=== PATIENT | male | born 1945 | race Caucasian/White ===

== ENCOUNTER → 2017-10-21 09:58 | Outpatient (CLI) | payer MEDICARE, SELFPAY | PROVIDERS: PCP Family Medicine; Visit Provider Family Medicine | DX: R42 Dizziness and giddiness (principal) | CPT/HCPCS: 93225; 93226 ==

== ENCOUNTER → 2018-11-12 11:32 | Outpatient (CLI) | payer MEDICARE, SELFPAY ==
--- NOTE | 2018-11-12 11:46 | XR_ITS ---
XR KUB HISTORY: ITS.REASON: HEMATURIA ORDERING PHYSICIAN: Toyin Zamarripa MD PATIENT AGE: 73 years COMPARISON: None FINDINGS: The bowel gas pattern is unremarkable. No obvious obstruction.. There is a small calcific density in the left upper quadrant and could represent a small renal stone versus artifact measuring 5 mm. Right-sided pelvic calcification is present consistent with a phlebolith. There is a 2 mm density overlying the lower pole the right kidney could be due to small stone. IMPRESSION: Possible bilateral nephrolithiasis.
--- NOTE | 2018-11-12 11:47 | US_ITS ---
US Kidney CLINICAL INDICATION: ITS.REASON: HEMATURIA ORDERING PHYSICIAN: Toyin Zamarripa MD PATIENT AGE: 73 years Comparison: None FINDINGS: The right kidney measures 11 x 6 x 6 cm. No cortical thinning, scarring, or hydronephrosis. The left kidney is 12 x 5 x 5 cm. No hydronephrosis. There is a 7.5 cm cyst along the lower pole on the left. No other significant anomalies evident. IMPRESSION: 7 cm left renal cyst otherwise negative bilateral renal ultrasound
== END ==
PROVIDERS: PCP Family Medicine; Visit Provider Family Medicine
DX: R31.29 Other microscopic hematuria (principal)
CPT/HCPCS: 74018; 76770

== ENCOUNTER → 2020-05-03 12:33 | Outpatient (CLI) | payer MEDICARE, SELFPAY ==
--- NOTE | 2020-05-03 12:37 | XR_ITS ---
PROCEDURE: XR FOOT WT BEARING LT 3V CLINICAL INDICATION: foot pain COMPARISON: No exams were available for comparison FINDINGS: No fracture or dislocation. No lytic or blastic change. There is normal mineralization. The joint spaces are well-preserved. No significant degenerative/arthritic changes. No erosive changes evident. Other findings:Small Achilles enthesophyte IMPRESSION: No acute findings. Dictated by: Wally Spence MD 05/03/2020 17:09 Wally Spence MD in [place] 05/03/2020 17:09
--- NOTE | 2020-05-03 12:37 | XR_ITS ---
PROCEDURE: XR FOOT WT BEARING RT 3V CLINICAL INDICATION: pain COMPARISON: No exams were available for comparison FINDINGS: No fracture or dislocation. No lytic or blastic change. There is normal mineralization. Mild osteoarthritic changes 1st MTP joint. Borderline pes planus. Small enthesophyte at the Achilles insertion. Other findings:None. 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
== END ==
PROVIDERS: PCP Family Medicine; Visit Provider Nurse Practitioner
DX: M79.672 Pain in left foot (principal); M79.671 Pain in right foot
CPT/HCPCS: 73630

== ENCOUNTER → 2020-07-29 16:59 | Outpatient (CLI) | payer MEDICARE, SELFPAY ==
--- NOTE | 2020-07-29 17:39 | ECG_ITS ---
APPROVED REPORT Exam: Resting ECG HR:57 bpm ECG Measurements Heart Rate 57 AXES WI 126 P 33 QRSd 84 QRS 7 QT 406 T -9 QTc 395 Conclusion Sinus bradycardia Isolated q wave in III Abnormal ECG Electronically signed by : Yobany Alejandre, 07/30/2020 08:50:35
[2020-07-29 18:00] LABS: Creatine Kinase 49 U/L (55-170)
[2020-07-29 18:12] LABS: CKMB Relative Index 0.4 U/L (0-4.0); Creatine Kinase MB 0.2 ng/ml (0.0-2.03)
[2020-07-29 18:13] LABS: Troponin I < 0.01 ng/ml (0.00-0.034)
== END ==
LOC: COVID.OUT 17:02 → OUTP 17:11 → LAB 17:14
PROVIDERS: PCP Family Medicine; Visit Provider Family Medicine
DX: R10.13 Epigastric pain (principal)
CPT/HCPCS: 36415; 82550; 82553; 84484; 93005

== ENCOUNTER → 2022-12-10 15:46 | Outpatient (CLI) | payer MEDICARE, SELFPAY ==
--- NOTE | 2022-12-10 15:52 | XR_ITS ---
FINAL REPORT CLINICAL HISTORY: BLOOD CHEMISTRY ABNORMALITY FINDINGS: Single lateral view of the skull was obtained. There is no evidence of calvarial lucency. IMPRESSION: No acute abnormality identified. Reviewed, Interpreted and Dictated by Braden Ness MD Transcribed by Alba Kerr Authenticated and [facility]
== END ==
LOC: LAB 15:47 → RAD 15:49
PROVIDERS: PCP Family Medicine; Visit Provider Family Medicine
DX: R79.9 Abnormal finding of blood chemistry, unspecified (principal)
CPT/HCPCS: 70250

== ENCOUNTER → 2023-06-14 10:59 | Outpatient (CLI) | payer MEDICARE, SELFPAY ==
--- NOTE | 2023-06-14 11:22 | CT_ITS ---
FINAL REPORT TECHNIQUE: The patient was injected with IV contrast. Axial images were obtained through the chest in a PE protocol. 3-D reconstruction images were also performed. Individualized dose reduction techniques using automated exposure control or adjustment of the MA and/or KV according to patient's size were employed. CLINICAL HISTORY: DYSPNEA,ABN ECG,TACHYCARDIA FINDINGS: Mediastinal vasculature is adequately opacified. No pulmonary artery filling defects are identified to suggest PE. There is no aortic dissection. There is no axillary adenopathy. There is small mediastinal lymph nodes. The heart size is normal. There is no pericardial or pleural effusion. There are extensive changes of centrilobular emphysema. There are patchy airspace infiltrate in the posterior upper lobes bilaterally. These are well-seen on the left on image 39 of series 3. A noncalcified nodule in the left base periphery measures 6 mm. This is well-seen on image 80 of series 3. Limited images of the upper abdomen demonstrate a small sliding-type hiatal hernia. There is a large left renal cyst measuring 8.2 x 7.2 cm. IMPRESSION: No pulmonary embolus or dissection. Patchy airspace opacity in the posterior upper lobes bilaterally may be due to acute pneumonitis. Small 6 mm peripheral left base nodule. Follow-up CT is recommended in 6 to 12 months per Fleischner Society criteria. Reviewed, Interpreted and Dictated by Braden Ness MD Transcribed by Nikki Barragan Authenticated and [facility]
[2023-06-14 11:49] LABS: Basophils # 0.1 K/mm3 (0-0.2); Basophils % 0.8 % (0.1-2.0); Eosinophils # 0.5 K/mm3 (0.0-0.4); Eosinophils % 5.7 % (0.1-12.0); Hematocrit 41.2 % (42.0-52.0); Hemoglobin 13.9 g/dL (14.1-18.0); Lymphocytes # 2.6 K/mm3 (0.7-4.5); Lymphocytes % 30.7 % (10-50); Mean Corpuscular HGB Conc 33.7 g/dL (31.8-35.4); Mean Corpuscular Hemoglobin 33.3 pg (27.0-31.2); Mean Corpuscular Volume 98.7 fl (80-94); Mean Platelet Volume 7.7 fl (7.4-10.4); Monocytes # 1.2 K/mm3 (0.1-1.0); Monocytes % 14.6 % (1.7-9.3); Neutrophils # 4.1 K/mm3 (1.8-7.8); Neutrophils % 48.3 % (37.0-80.0); Platelet Count 213 K/mm3 (142-424); Red Blood Count 4.17 M/mm3 (4.60-6.20); Red Cell Distribution Width 13.7 % (11.5-17.5); White Blood Count 8.4 K/mm3 (4.8-10.8)
[2023-06-14 11:52] LABS: Chloride 104 mmol/L (98-107); Potassium 4.9 mmoL/L (3.5-5.1); Sodium 139 mmol/L (136-145)
[2023-06-14 11:55] LABS: Alanine Aminotransferase 29 U/L (12-78); Albumin Level 4.1 g/dl (3.5-5.0); Alkaline Phosphatase 132 U/L (38-126); Anion Gap 16.9 mEq/L (5-15); Aspartate Amino Transferase 35 U/L (17-59); Bilirubin,Total 0.6 mg/dl (0.2-1.3); Blood Urea Nitrogen 17 mg/dl (9-20); Carbon Dioxide 23 mmol/L (22.0-30.0); Estimated Glomerular Filt Rate 54 ml/min (>60); GFR (African American) 65 ML/MIN (>60); Globulin 4.2 g/dL (1.3-3.2); Total Protein,Serum 8.3 g/dl (6.3-8.2)
[2023-06-14 11:56] LABS: Glucose 120 mg/dl (74-100)
[2023-06-14 12:05] LABS: NT Pro Brain Natriuretic Pep. 150 pg/mL (0-450)
== END ==
PROVIDERS: PCP Family Medicine; Visit Provider Internal Medicine Adolescent Medicine
DX: R06.09 Other forms of dyspnea (principal); R00.0 Tachycardia, unspecified; R94.31 Abnormal electrocardiogram [ECG] [EKG]
CPT/HCPCS: 36415; 71275; 80053; 83880; 85025; Q9967

== ENCOUNTER → 2023-06-18 13:53 | Outpatient (CLI) | payer MEDICARE, SELFPAY ==
--- NOTE | 2023-06-18 | CA_ITS ---
APPROVED REPORT EXAM: Comprehensive 2D, Doppler, and color-flow Echocardiogram Kiss Setter Hand: Marta Mabry CRT Ht: 5 ft 6 in Wt: 160lbs BSA: 1.82 BP: 127/65 mmHg Indications: Shortness of Breath 2D Dimensions LA Volume 41.30 mL M-Mode Dimensions RVDd 2.91 cm (0.9-2.6) LA Diam 4.17 cm (1.9-4.0) LVDd 4.38 cm (3.5-5.7) LVDs 2.01 cm (3.5-5.7) IVSd 1.30 cm (0.6-1.1) PWd 1.04 cm (0.6-1.1) EF (Teich) 85.10% FS 54.10% EDV (Teich) 86.80 mL TAPSE 2.90 (<1.7) ESV (Teich) 12.90 mL LV Diastology E Decel Time 347 (160-240 msec) E/A Ratio 0.46 MED A' 12.90 cm/s LAT A' 14.20 cm/s Aortic Valve AO Peak GR. 8.60 mmHg Mitral Valve MV A Velocity 101.0 (40-130 cm/s) E/A Ratio 0.46 Pulmonary Valve PV Peak Velocity 187.0 (50-150 cm/s) Tricuspid Valve TR P. Velocity 221.00 cm/s RAP Estimate 10.00 mmHg RVSP 29.60 mmHg Left Ventricle The left ventricle is normal size. The left ventricular systolic function is normal. The left ventricular ejection fraction is within the normal range. There is increased LV wall thickness. There is normal LV segmental wall motion. Transmitral Doppler flow pattern suggests impaired LV relaxation. LVEF is 65%. Right Ventricle The right ventricle is mildly dilated. The right ventricular systolic function is normal. Atria The left atrium is severely dilated. The right atrium size is normal. There is no Doppler evidence of interatrial shunt. Aortic Valve The aortic valve is mildly thickened. There is no aortic valvular stenosis. Trace aortic regurgitation. Mitral Valve Mild mitral annular calcification. The mitral valve leaflets are mildly thickened. No evidence of mitral valve stenosis. Mild mitral regurgitation. Tricuspid Valve The tricuspid valve leaflets are thin and pliable. Trace tricuspid regurgitation. There is insufficient TR jet to estimate RVSP. Pulmonic Valve The pulmonary valve is normal in structure. Mild pulmonic regurgitation. Great Vessels The aortic root is normal in size. The ascending aorta is normal in size. The IVC is not well-visualized. Pericardium There is no pericardial effusion. Other Information Study Quality: Fair Conclusion Normal biventricular systolic function. Severe LA dilation. Mild RV dilation. Mild MR. Mild MS. Electronically signed by : May Eric MD 06/18/2023 23:34:16
== END ==
LOC: RT 13:53
PROVIDERS: PCP Family Medicine; Visit Provider Internal Medicine Adolescent Medicine
DX: R06.02 Shortness of breath (principal)
CPT/HCPCS: 93306

== ENCOUNTER 2023-10-17 12:34 | Outpatient (CLI) | payer MEDICARE, SELFPAY ==
[2023-10-17 16:31] LABS: Basophils # 0.1 K/mm3 (0-0.2); Eosinophils # 0.3 K/mm3 (0.0-0.4); Eosinophils % 3.4 % (0.1-12.0); Hematocrit 43.1 % (42.0-52.0); Hemoglobin 13.9 g/dL (14.1-18.0); Lymphocytes # 2.3 K/mm3 (0.7-4.5); Lymphocytes % 29.3 % (10-50); Mean Corpuscular HGB Conc 32.3 g/dL (31.8-35.4); Mean Corpuscular Hemoglobin 32.6 pg (27.0-31.2); Mean Corpuscular Volume 100.9 fl (80-94); Mean Platelet Volume 7.6 fl (7.4-10.4); Monocytes # 0.7 K/mm3 (0.1-1.0); Monocytes % 8.7 % (1.7-9.3); Neutrophils # 4.5 K/mm3 (1.8-7.8); Neutrophils % 57.6 % (37.0-80.0); Platelet Count 214 K/mm3 (142-424); Red Blood Count 4.27 M/mm3 (4.60-6.20); Red Cell Distribution Width 14.3 % (11.5-17.5); White Blood Count 7.8 K/mm3 (4.8-10.8)
[2023-10-17 17:00] LABS: Alanine Aminotransferase 26 U/L (12-78); Albumin Level 4.1 g/dl (3.5-5.0); Albumin/Globulin Ratio 0.9 (1.1-1.8); Alkaline Phosphatase 144 U/L (38-126); Anion Gap 13.1 mEq/L (5-15); Aspartate Amino Transferase 28 U/L (17-59); Bilirubin,Total 0.7 mg/dl (0.2-1.3); Blood Urea Nitrogen 18 mg/dl (9-20); Calcium 9.5 mg/dl (8.4-10.2); Carbon Dioxide 25 mmol/L (22.0-30.0); Chloride 106 mmol/L (98-107); Estimated Glomerular Filt Rate 65 ml/min (>60); GFR (African American) 79 ML/MIN (>60); Globulin 4.4 g/dL (1.3-3.2); Glucose 167 mg/dl (74-100); Lactate Dehydrogenase 206 U/L (313-618); Potassium 4.1 mmoL/L (3.5-5.1); Sodium 140 mmol/L (136-145); Total Protein,Serum 8.5 g/dl (6.3-8.2); Uric Acid 5.6 mg/dl (3.5-8.5)
[2023-10-17 17:05] LABS: C-Reactive Protein 23.6 mg/L (0-4)
[2023-10-17 17:28] LABS: Erythrocyte Sedimentation Rate 63 mm/hr (0-20)
[2023-10-19 10:03] LABS: RA Latex Turbid. <10.0 IU/mL (<14.0)
[2023-10-21 11:10] LABS: Sjogren's Anti-SS-A <0.2 AI (0.0-0.9); Sjogren's Anti-SS-B <0.2 AI (0.0-0.9)
[2023-10-21 15:09] LABS: Cytoplasmic (C-ANCA) <1:20 titer (Neg:<1:20); Perinuclear (P-ANCA) <1:20 titer (Neg:<1:20)
[2023-10-22 14:11] LABS: Strongyloides IgG Antibody Positive (Negative)
[2023-10-22 17:18] LABS: Aspergillus flavus Negative (Neg:<1:1); Aspergillus fumigatus Negative (Neg:<1:1); Aspergillus niger Negative (Neg:<1:1); Blastomyces Antibody Negative (Neg:<1:1); Histoplasma Antibody Quant Negative (Neg:<1:1)
== END 2023-10-17 23:59 | disposition home or self-care (01) ==
PROVIDERS: PCP Family Medicine; Visit Provider Internal Medicine Pulmonary Disease
DX: R06.09 Other forms of dyspnea (principal); J84.9 Interstitial pulmonary disease, unspecified; J90 Pleural effusion, not elsewhere classified; J45.909 Unspecified asthma, uncomplicated; D72.10 Eosinophilia, unspecified; R91.1 Solitary pulmonary nodule; J84.10 Pulmonary fibrosis, unspecified
CPT/HCPCS: 36415; 80053; 83615; 84550; 85025; 85651; 86038; 86140; 86225; 86235; 86256; 86331; 86431; 86602; 86606; 86609; 86612; 86682; 86698; 94060; 94618; 94726; 94729

== ENCOUNTER 2023-10-31 10:12 | Outpatient (CLI) | payer MEDICARE, SELFPAY ==
--- NOTE | 2023-10-31 10:13 | CT_ITS ---
FINAL REPORT TECHNIQUE: Axial CT images were performed from the lung apices through the upper abdomen. Coronal and axial reformats were submitted. This study was performed with techniques to keep radiation doses as low as reasonably achievable (ALARA). Individualized dose reduction techniques using automated exposure control or adjustment of mA and/or kV according to the patient's size were employed. This examination was performed as a high resolution CT of the chest, with inspiratory and expiratory supine views, and inspiratory prone views. CLINICAL HISTORY: INTERSTITIAL LUNG DISEASE HIGH RESOLUTION CHEST X3 (INSPIRATION AND EXPIRATION SUPINE) (INSPIRATION PRONE) COMPARISON: None FINDINGS: Moderate coronary artery calcifications are present. There is no axillary adenopathy. There is no hilar or mediastinal mass or adenopathy. Heart size is normal. There is no pericardial or pleural effusion. A small hiatal hernia is present, as well as a large left renal cyst. There is moderate predominantly peripheral interstitial fibrosis, with peripheral honeycombing present as well. There is no evidence of air trapping with expiratory films. No bronchiectasis is identified. IMPRESSION: Examination reveals changes of moderate peripheral interstitial fibrosis. This may represent UIP. Moderate coronary artery calcifications. Reviewed, Interpreted and Dictated by Brian Kinney III, MD Transcribed by Angelica Osman Authenticated and [facility]
== END 2023-10-31 23:59 | disposition home or self-care (01) ==
LOC: RAD 10:13
PROVIDERS: PCP Family Medicine; Visit Provider Internal Medicine Pulmonary Disease
DX: J84.9 Interstitial pulmonary disease, unspecified (principal); J84.10 Pulmonary fibrosis, unspecified; R94.2 Abnormal results of pulmonary function studies; R06.09 Other forms of dyspnea; Z87.891 Personal history of nicotine dependence
CPT/HCPCS: 71250

== ENCOUNTER 2023-11-21 11:09 | Outpatient (CLI) | payer MEDICARE, SELFPAY ==
[2023-11-21 13:34] LABS: C-Reactive Protein 19.5 mg/L (0-4)
[2023-11-22 13:55] LABS: Anti-DNA (DS) Ab Qn <1 IU/mL (0-9); RNP Antibodies <0.2 AI (0.0-0.9)
== END 2023-11-21 23:59 | disposition home or self-care (01) ==
LOC: LAB 11:10
PROVIDERS: PCP Family Medicine; Visit Provider Internal Medicine Pulmonary Disease
DX: J84.9 Interstitial pulmonary disease, unspecified (principal); J84.10 Pulmonary fibrosis, unspecified
CPT/HCPCS: 36415; 86140; 86225; 86235

== ENCOUNTER 2024-01-31 09:44 | Outpatient (CLI) | payer MEDICARE, SELFPAY ==
[2024-01-31] MEDS: ALBUTEROL 0.083% 2.5 MG/3 ML NEB IH (10:01)
--- NOTE | 2024-01-31 10:01 | PC.NURSE ---
Pre and Post Spirometry completed without incident. Albuterol 0.083% given via HHN, per written protocol, Pt tolerated tx well. 6 Minute Walk Test completed.
== END 2024-01-31 23:59 | disposition home or self-care (01) ==
LOC: RT 09:44
PROVIDERS: PCP Family Medicine; Visit Provider Internal Medicine Pulmonary Disease
DX: R06.09 Other forms of dyspnea; J84.9 Interstitial pulmonary disease, unspecified; J84.10 Pulmonary fibrosis, unspecified; Z87.891 Personal history of nicotine dependence
CPT/HCPCS: 94060; 94618; J7613

== ENCOUNTER 2024-05-14 09:44 | Outpatient (CLI) | payer MEDICARE, SELFPAY ==
[2024-05-14] MEDS: ALBUTEROL 0.083% 2.5 MG/3 ML NEB IH (10:53)
--- NOTE | 2024-05-14 10:53 | PC.NURSE ---
Pre and Post Spirometry completed without incident. Albuterol 0.083% given via HHN, per written protocol, Pt tolerated tx well.
== END 2024-05-14 23:59 | disposition home or self-care (01) ==
PROVIDERS: PCP Family Medicine; Visit Provider Internal Medicine Pulmonary Disease
DX: J44.9 Chronic obstructive pulmonary disease, unspecified (principal)
CPT/HCPCS: 94060; J7613

== ENCOUNTER 2024-06-01 07:34 | Outpatient (CLI) | payer MEDICARE, SELFPAY ==
[2024-06-01] VITALS (7 sets, daily range): BP systolic 100–159; BP diastolic 50–90; PULSE 52–61; RESP 16–18; TEMP 36.1; O2SAT 96–98; BMI 30.9
--- NOTE | 2024-06-01 07:43 | CA_ITS ---
APPROVED REPORT EXAM: Comprehensive 2D, Doppler, and color-flow Echocardiogram Branch Service Associate: Marta Mabry CRT Ht: 5 ft 6 in Wt: 173lbs BSA: 1.88 BP: 149/68 mmHg Indications: Abnormal ECG, Shortness of Breath, Dyspnea, CAD, bradycardia 2D Dimensions LA Volume 62.40 mL LA Volume Index 32.30 mL/m2 (M/F) 16-34 M-Mode Dimensions RVDd 2.65 cm (0.9-2.6) LA Diam 4.09 cm (1.9-4.0) LVDd 4.94 cm (3.5-5.7) LVDs 3.61 cm (3.5-5.7) IVSd 1.50 cm (0.6-1.1) PWd 0.89 cm (0.6-1.1) EF (Teich) 52.30% FS 26.90% EDV (Teich) 115.00 mL TAPSE 2.51 (<1.7) ESV (Teich) 54.80 mL LV Diastology E Decel Time 77 (160-240 msec) E/A Ratio 1.81 MED A' 14.70 cm/s LAT A' 13.70 cm/s Aortic Valve AO Peak GR. 8.00 mmHg Mitral Valve MV E Max Jeffery. 80.0 (40-130 cm/s) MV A Velocity 44.0 (40-130 cm/s) E/A Ratio 1.81 MV PHT 22.0 ms Pulmonary Valve PV Peak Velocity 193.0 (50-150 cm/s) Tricuspid Valve TR P. Velocity 391.00 cm/s RAP Estimate 10.00 mmHg RVSP 71.20 mmHg Left Ventricle The left ventricle is normal size. The left ventricular systolic function is normal. The left ventricular ejection fraction is within the normal range. There is increased LV wall thickness. There is normal LV segmental wall motion. Diastolic function is indeterminate. LVEF is 55%. Right Ventricle Right ventricle is mildly dilated. The right ventricular systolic function is normal. Atria Left atrium is severely dilated. Right atrium is severely dilated. There is no Doppler evidence of interatrial shunt. Aortic Valve The aortic valve is mildly thickened. There is no aortic valvular stenosis. Trace aortic regurgitation. Mitral Valve The mitral valve is mildly thickened. No evidence of mitral valve stenosis. Mild mitral regurgitation. Tricuspid Valve Tricuspid valve is grossly normal in structure and function. Mild tricuspid regurgitation. RVSP is 35-40 mmHg. Pulmonic Valve The pulmonary valve is normal in structure. Trace pulmonic regurgitation. Great Vessels The aortic root is normal in size. The ascending aorta is normal in size. IVC is normal in size and collapses >50% with inspiration. Pericardium There is no pericardial effusion. Other Information Study Quality: Fair Conclusion Normal biventricular systolic function. Mild RV dilation. Severe biatrial dilation. Mild MR, mild TR. RVSP is 35-40 mmHg. Electronically signed by : May Eric MD 06/07/2024 16:45:50
--- NOTE | 2024-06-01 08:17 | CT_ITS ---
APPROVED REPORT Spring Fitter: CLINICAL INDICATION Chest Pain TECHNIQUE Image Acquisition: A 128 slice MDCT scanner (YupiCalla View) was used for data acquisition. A noncontrast coronary calcium scan was performed. A CT attenuation threshold of 130 Hounsfield units (HU) was used for the detection of calcium in contiguous voxels of 1 sq mm in area to be counted as individual lesions. Bolus tracking in the ascending aorta with a threshold of 180 HU was performed. Immediately afterwards, ECG synchronized cardiac CT was then performed from the cardiac base to apex using retrospective gating with ECG tube current modulation. A total of 85 mL of Isovue 370 mg/mL contrast medium was administered at 5 mL/sec followed by a saline flush using a biphasic injection protocol. A tube voltage of 120 KVp was used. The patient received the following medications prior to the cardiac CT. 0.8 mg of sublingual nitroglycerin The average heart rate at the time of acquisition was 60 bpm and regular. Image Reconstruction Transaxial images were reconstructed at 0.67 mm slide thickness. Data was reviewed interactively on an advanced workstation capable of 2 and 3-dimensional displays in all conventional reconstruction formats, including multiplanar reformations, maximum intensity projections, curved multiplanar reformations, and volume rendered reconstructions. When applicable, selected routine images describing the relevant coronary anatomy and pathology were saved and sent to PACS. Complications None Technical Quality Overall image quality was good. Coronary artery opacification was adequate. Total DLP (Dose-Length Product) is 1830.1 mGy-cm. The reported value represents the total of one or more individual components during the CT acquisition of this date and at this time, and as such, the same value may appear in more than one CT report depending on the interpreting/reporting physicians. COMPARISON None FINDINGS CT Coronary Calcium Scoring LMA (Left Main Artery) = 66 LAD (Left Anterior Descending) = 559 LCX (Left Coronary Circumflex) = 0 RCA (Right Coronary Artery) = 0 Total Calcium Score = 625 using the AJ-130 method. The observed calcium score of 625 is at 67th percentile for subjects of the same age, sex, and race/ethnicity. The interpretation of the calcium heart score is based on the following continuum*: 0 = no calcified plaque detected (risk of coronary artery disease is very low ??? less than 5%) 1-10 = calcium detected in extremely minimal levels (risk of coronary diseases is still low ??? less than 10%) 11-100 = mild levels of plaque detected with certainty (mild or minimal narrowing of heart arteries is likely) 101-400 = definite,at least moderate levels of plaque detected (relatively high risk of a heart attack within 3-5 years) >401-999 = extensive levels of plaque detected (high risk of heart attack, high levels of vascular disease are present, high likelihood of at least one significant coronary narrowing) *The calcium heart score quantifies the burden of coronary calcification/plaque in the coronary arteries. The calcium heart score is not able to evaluate the presence or burden of non-calcified (i.e. soft) plaque. There is mild calcification in the mitral annulus and the ascending, transverse, and descending thoracic aorta. Coronary CT Angiography The coronary arterial system is left dominant. Quantitative Stenosis Grading: Left Main (LM): The left main originates normally from the left sinus of Valsalva. The LM bifurcates into the left anterior descending artery and left circumflex artery. There is mixed calcified/noncalcified plaque in the LM, with < 25% luminal stenosis. Left Anterior Descending (LAD) and Diagonal Branches: The LAD gives off 3 diagonal branch(es). There is mixed calcified/noncalcified plaque in the proximal and mid LAD segments with up to 25-49% luminal stenosis. There is no evidence of LAD-myocardial bridge. Left Circumflex (LCX) and Obtuse Marginals (OM): The LCX gives off 2 Obtuse Marginal (OM) branch(es). The LCX and its branches are patent with no evidence of atherosclerosis. Right Coronary Artery (RCA): The RCA originates normally from the right sinus of Valsalva. The RCA and its branches are patent with no evidence of atherosclerosis. Non-Coronary Cardiac Findings: Analysis of the left ventricular (LV) structure and function was performed after 3-D reconstruction of the LV from axial images, with user-corrected automatic contouring for assessment of LV volumes and user-defined reconstruction from oblique planes for measurement of 3-D cardiac structure and function. -The left ventricle systolic function is normal. -There is poor opacification of the distal LA appendage, which likely reflects early imaging acquisition at the time of IV contrast administration. However, this study cannot entirely rule out KARSON appendage filling defect. Two right pulmonary veins and two left pulmonary veins drain normally into the left atrium. -No pericardial thickening or calcification. -Central and branch pulmonary arteries in the [id number] are unremarkable. -Thoracic aorta within the visualized thoracic aortic-branches in the [id number] is unremarkable. Extracardiac Structures -Hiatal hernia is incidentally noted. IMPRESSION -Presence of coronary calcification with an Agatston score = 625 using the AJ-130 method. -The observed calcium score of 625 is at 67th percentile for subjects of the same age, sex, and race/ethnicity. -Mild multivessel atherosclerotic coronary disease, with no evidence of significant flow-limiting atherosclerosis of the coronary arteries. -CAD-RADS 2. Management recommendations per ACC/AHA guidelines*, as clinically appropriate. -Hiatal hernia is incidentally noted. *Recommendations: CAD RADS 0: Reassurance. Consider non-atherosclerotic causes of chest pain. CAD RADS 1: Consider non-atherosclerotic causes of chest pain. Consider preventive therapy and risk factor modification. CAD RADS 2: Consider non-atherosclerotic causes of chest pain. Consider preventive therapy and risk factor modification, particularly for patients with nonobstructive plaque in multiple segments. CAD RADS 3: Consider further functional testing. Consider symptom-guided anti-ischemic and preventive pharmacotherapy as well as risk factor modification per published guideline statements. CAD RADS 4A: Consider further functional testing or invasive coronary angiography with revascularization per published guideline statements. Consider symptom-guided anti-ischemic and preventive pharmacotherapy as well as risk factor modification per published guideline statements. CAD RADS 4B: Invasive coronary angiography recommended with revascularization per published guideline statements. Consider symptom-guided anti-ischemic and preventive pharmacotherapy as well as risk factor modification per published guideline statements. CAD RADS 5: Consider invasive angiography and/or viability assessment with revascularization per published guideline statements. Consider symptom-guided anti-ischemic and preventive pharmacotherapy as well as risk factor modification per published guideline statements. CRITICAL RESULT None COMMUNICATION Per this written report The coronary and cardiac findings of this CCTA were reviewed, reported, and signed by Rell Eric MD (Hazard Mitigation Officer) Conclusion Electronically signed by : May Eric MD 06/10/2024 13:19:52
[2024-06-01 08:45] LABS: Chloride 106 mmol/L (98-107); Sodium 139 mmol/L (136-145)
[2024-06-01 08:46] LABS: Potassium 4.2 mmoL/L (3.5-5.1)
[2024-06-01 08:48] LABS: Blood Urea Nitrogen 16 mg/dl (9-20); Creatinine Clearance Estimated 59 mL/min (50-200); Estimated Glomerular Filt Rate 59 ml/min (>60); GFR (African American) 71 ML/MIN (>60)
[2024-06-01 08:49] LABS: Anion Gap 10.2 mEq/L (5-15); Carbon Dioxide 27 mmol/L (22.0-30.0); Glucose 112 mg/dl (74-100)
[2024-06-01] MEDS: NITROGLYCERIN 0.4MG SL TABLET SL (09:03)
[2024-06-01] MEDS: 0.9 % SODIUM CHLORIDE 50 ML VIAL IV (09:20)
[2024-06-01] MEDS: IOPAMIDOL-370 (76%);100ML BOTTLE 85 ML IV (09:21)
[2024-06-01] MEDS: SODIUM CHLORIDE 0.9% 10ML SYR (RAD ONLY) 10 ML IV (09:21)
== END 2024-06-01 09:23 | disposition home or self-care (01) ==
PROVIDERS: PCP Family Medicine; Visit Provider Physician Assistant
DX: I51.7 Cardiomegaly (principal); I34.0 Nonrheumatic mitral (valve) insufficiency; I36.1 Nonrheumatic tricuspid (valve) insufficiency; R55 Syncope and collapse; R00.1 Bradycardia, unspecified; R42 Dizziness and giddiness; R94.31 Abnormal electrocardiogram [ECG] [EKG]; R06.09 Other forms of dyspnea; I25.10 Atherosclerotic heart disease of native coronary artery without angina pectoris
CPT/HCPCS: 75574; 80048; 93225; 93227; 93306; Q9967

== ENCOUNTER 2024-06-03 10:24 | Outpatient (CLI) | payer MEDICARE, SELFPAY | END 2024-06-03 23:59 | disposition home or self-care (01) | LOC: RT 10:25 | PROVIDERS: PCP Family Medicine; Visit Provider Physician Assistant | DX: R55 Syncope and collapse (principal); R00.1 Bradycardia, unspecified; R42 Dizziness and giddiness; R94.31 Abnormal electrocardiogram [ECG] [EKG]; R06.09 Other forms of dyspnea | CPT/HCPCS: 93270 ==

== ENCOUNTER 2024-10-12 09:47 | Outpatient (CLI) | payer MEDICARE, SELFPAY ==
--- NOTE | 2024-10-12 09:47 | MR_ITS ---
APPROVED REPORT Underground Repairer: CLINICAL INDICATION Biatrial dilation, evaluation for infiltrative cardiomyopathy TECHNIQUE Image Acquisition: Cardiac magnetic resonance (CMR) was performed on Siemens Espree MRI 1.5T scanner. Software platform sequences were performed using the Siemens Yarraa MR B19 platform. A set of three-plane, low-resolution, large [id number] localizers were initially acquired. Then axial, coronal, sagittal TrueFISP, as well as axial HASTE images, were obtained. These were followed by gated TrueFISP breathold cinematic sequences obtained in the short axis with 8 mm slices and 2 mm gaps, 2-chamber (vertical long axis), 3-chamber, 4-chamber (horizontal long axis). A bolus of contrast was injected intravenously with first-pass sequences obtained in the short axis and four-chamber planes. After approximately 10 minutes, a TI tax assessor sequence was performed to determine the optimal TI time. Using the optimized TI time, delayed contrast enhancement segmented inversion???recovery TurboFLASH sequences were obtained in the short axis, 2-chamber, 3-chamber, and 4-chamber projections. 2D-velocity phase mapping was performed. Functional parameters were calculated by offline analysis on an independent workstation ([employer] Platform, [employer]). Contrast: ProHance??? (Gadoteridol) FINDINGS MORPHOLOGY AND FUNCTION Left ventricle: The left ventricle is normal in size. The indexed left ventricular end-diastolic volume (LVEDVi) is 72 ml/m2 (reference range 57-105 ml/m2 in males, 56-96 ml/m2 in females). Normal left ventricular systolic function is present. There is normal left ventricular wall thickness. There are no regional wall motion abnormalities noted. LVEF is calculated at 64.6% (reference range 57-77%). Right ventricle: The right ventricle is mildly dilated. The indexed right ventricular end-diastolic volume (RVEDVi) is 90 ml/m2 (reference range 61-121 ml/m2 in males, 48-112 ml/m2 in females). Low-normal right ventricular systolic function is present. RVEF is calculated at 51.8% (reference range 52-72% in males, 51-71% in females). Atria: The left atrium is severely dilated. The maximum indexed left atrial volume is 75 ml/m2 (reference range 26-52 ml/m2 in males, 27-53 ml/m2 in females). The right atrium is severely dilated. The maximum indexed right atrial volume is 55 ml/m2 (reference range 18-90 ml/m2). Aorta: The diameter of the aortic annulus is normal, measuring 24 mm (coronal view reference range 21-30 mm in males, 19-27 mm in females). The diameter of the aortic sinus is normal, measuring 32 mm (coronal view reference range 25-42 mm in males, 24-36 mm in females). The diameter of the sinotubular junction is normal, measuring 26 mm (coronal view reference range 18-32 mm in males, 18-28 mm in females). The diameters of the ascending and descending thoracic aorta are normal. Main pulmonary artery: The main pulmonary artery diameter is normal. Pericardium: The pericardial thickness is normal. The pericardial thickness measures 2.1 mm (normal < 4.0 mm). There is no pericardial effusion. VALVES The valvular morphologies in the visualized sequences appear normal. There is no significant valvular stenosis or regurgitation of the mitral, aortic, tricuspid, or pulmonic valve noted visually. Systolic anterior motion of the mitral valve is not visualized. Ratio of pulmonary to systemic flow, Qp:Qs ratio = 1.17 (normal < or = 1.2, hemodynamically significant shunt > 1.5), demonstrating no evidence of hemodynamically significant shunt. TISSUE CHARACTERIZATION Resting Perfusion: Normal myocardial blood flow at rest. No evidence of resting hypoperfusion. Myocardial Fibrosis and/or edema: Normal gadolinium kinetics are present. No evidence of late gadolinium enhancement is noted, consistent with absence of myocardial scarring, infarction, or necrosis. T2-weighted imaging demonstrates no evidence of myocardial edema or inflammation. OTHER Diffuse increase in interstitial markings bilaterally. IMPRESSION Normal LV size with normal LV systolic function. LVEDVi= 72 ml/m2 and LVEF= 64.6%. Mildly dilated RV with low-normal RV systolic function. RVEDVi= 90 ml/m2 and RVEF= 51.8%. Severe biatrial enlargement. No CMR evidence of myocardial scarring, infarction, or necrosis. No evidence of myocardial edema or inflammation. Perfusion analysis demonstrates normal blood flow at rest with no evidence of resting hypoperfusion. Ratio of pulmonary to systemic flow, Qp:Qs ratio = 1.17 (normal < or = 1.2, hemodynamically significant shunt > 1.5), demonstrating no evidence of hemodynamically significant shunt. Diffuse increase in interstitial markings bilaterally. Correlation with pulmonary imaging is suggested. Overall, this CMR demonstrates normal biventricular systolic function with presence of biatrial dilation. No CMR evidence of infiltrative cardiomyopathy. No evidence of myocardial scarring, fibrosis, or prior infarct. Pulmonary evaluation is suggested in the setting of diffuse increase in interstitial markings bilaterally. COMPARISON None CRITICAL RESULT None COMMUNICATION Per this written report The findings of this cardiac MR were reviewed, reported, and signed by Rell Eric MD (Tricot Knitting Machine Operator). Conclusion 1. 6 Electronically signed by : May Eric MD 10/14/2024 23:20:21
--- OUTSIDE RECORDS SUMMARY | 2024-10-12 09:49 | XMS_ITS | Encounter Summary ---
Author Name [facility] Address [address] [place] [address] Care Team Providers Care Lock Assembler Name Role Phone MARTIN SINHA Primary Care Provider Unavail able Insurance Providers: All historical and current Section Date Range: From patient's date of to the date document was created. This section includes the names of all active insurance providers for the patient. Insurance Provider Type of Coverage Plan Name Start of Policy Coverage End of Policy Coverage Group Number Member ID Insurance Provider's Telephone Number Policy Magallanes's Name Patient's Relationship to Policy Magallanes [employer] MCR (WNR) MEDICARE ADVANTAGE [facility](W NR) Jun 24, 2012 [id number] [phone] QUINCY RAFFY PATIENT MEDICARE PART D (WNR) MEDICARE (M) PART D Jun 24, 2012 PART D [id number] ANGELPAOLARAFFY PATIENT MEDICARE PART D (WNR) MEDICARE (M) PART D Jun 24, 2012 PART D [id number] RAFFY MATHEW PATIENT Selected Encounter This section includes the information on record at [place] for the Encounter. Date/Time Encounter Type Encounter Description Reason Pro vider Source Sep 16, 2024 03:14 PM Outpatient Encounter ADMIN PAT ACTIVTIES (MASNONCT) IHE Encounter Template Text not used by [facility] Plan of Treatment: Future Appointments (+ 6 months) and Future Tests (+/- 45 days) The Plan of Treatment section includes future care activities for the patient from all [place] treatmentfacilities. This section includes future appointments and future orders which are active, pending or scheduled. Future Appointments This section includes appointments that were scheduled to occur 6 months from the date of the Encounter, up to a maximum of 20 appointments. The data comes from all [place] treatment facilities. Appointment Date/Time Appointment Type Appointme nt Facility Name Oct 21, 2024 09:30 AM AMBULATORY - MEDICINE [facility] Advance Directives: All historical and current Section Date Range: From patient's date of to the date document was created. This section includes ALL of a patient's completed or amended [place] Advance and Rescinded Directives. The entries below indicate that a directive exists for the patient, but an actual copy is not included with this document. The data comes from all [place] facilities. Date Advance Directives Provider Source Feb 01, 2012 ADVANCE [facility]IVE [facility] Jan 25, 2012 ADVANCE DIRECTIVE DISCUSSION [facility] Encounter Notes: All associated encounter notes This section contains the clinical notes associated to the Encounter. Date/Time Encounter Note(s) Provider Source Sep 16, 2024 03:14 PM ADMINISTRATIVE NOT E: LOCAL TITLE: CLERICAL/ADMIN NOTE STANDARD TITLE: ADMINISTRATIVE NOTE DATE OF NOTE: SEP 16, 2024@15:14 ENTRY DATE: SEP 16, 2024@15:14:38 AUTHOR: LUDIN GENAO EXP COSIGNER: URGENCY: STATUS: COMPLETED [employer] Uniform 16-2 10/21/2024@09:30 Future Scheduled per PC recall at pt's dd/time. Mailed letter. /deric/ LUDIN GENAO [employer] Signed: 09/16/2024 15:14 [facility]
--- OUTSIDE RECORDS SUMMARY | 2024-10-12 09:49 | XMS_ITS | Data Portability ---
Author Organization [facility] ANSELMO Spears [place] [facility] Address [address] [place] [address] Care Team Providers Care Trim Die Maker Name Role Phone MIRYAM ALEXANDRA Primary Care Provider Assessment No assessment recorded. Plan of Treatment Reminders Order Date Submit Date Provider Last Modified By Organization Details Last Modified Time Details Appointments EXICISION S [facility] 2024 01:00P M DR BETSY ENNIS Not available Not available Not available FOLLOW UP [facility] 2024 11:40A M EVENS MALIN MD Not available Not available Not available Lab surgical pathology study 2023 [facility], [address] [place], [address], 04/20/2024 13:53:47 Referral None recorded. Procedures None recorded. Surgeries None recorded. Imaging None recorded. Medication Orders Cipro 250 mg tablet 2023 024 [id number], [address] [address] [place], [id number], 05/13/2024 10:07:23 Patient TargetsNo targets recorded. Patient Instructions Encounter Date Encounter Id Patient Instructions Last Modified By Organization Details Last Modified Time 04/15/2024 [id number] Continue wound care QD until healed. Use Gentamicin ointment QD as well. Follow up in 3-4wks. [email or web address] Not available 04/16/2024 16:47:57 05/13/2024 [id number] Pt is to continue wound care and begin ciprofloxacin orally. Follow up in [address] Not available 05/13/2024 08:30:57 05/27/2024 [id number] Using punch fenestration allows blood to recirculate to cartilage to improve wound healing. Continue wound care QD gently cleaning with antibacterial soap and applying gentamicin ointment on wound and Vaseline on gauze and keep wound covered with light bandage. Follow up after gabino and call if you have any questions. [email or web address] Not available 05/27/2024 10:18:38 07/01/2024 [id number] Patient will be in [place] for the next several months. Email address provided to patient so he may send pictures of wound progress, also invited to use patient portal. Patient to follow up after return from [place]. [email or web address] Not available 07/01/2024 10:10:29 Reason for Referral None Reported. 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 AJCC: T1, Nx, Mx SOURC E OF SPECI MEN: SKIN, R PREST ERNAL CLINI LILLY INFOR MATIO N: R/O: ISK VS SCCis . TX W/ C&D. Gross Descr iptio n: The speci men consi sted of a fraser fragm ent which was bisec lenka and measu red 8 x 5 x 1 mm. All submi tted in one casse tte. Micro scopi c Descr iptio n: The epide rmis conta ins foci of full thick ness kerat inocy te atypi a and disor ganiz ation . Small frond s of atypi lilly kerat inocy tsering exten d into the super ficia l dermi s. DURGA GOMEZ MD [place] d Out Date: 04/20 13:53 1 Not Available [facility] [address], [place], [address], 04/20/2024 13:53:47 Result Notes None recorded. 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 Procedures Surgical History Date Name Laterality Status Provider Name and Address Organization Details Recorded Time 04/17/20 Blade Biopsy w/ ED&C completed [facility] 04/17/2024 12:48:09 04/17/20 24 Destruction Premalignant Lesion(s) completed [facility] 04/17/2024 12:48:12 11/04/19 24 DAK - Biopsy, Tangential completed [place] Nicole [facility] 11/04/2023 13:54:39 Imaging Results None recorded. Procedure Notes None recorded. Medical Equipment None Reported. Allergies No known drug allergies Medications Name Sig Start Date Stop Date Status Note LastModified by Organization Details LastModified Time Cipro 250 mg tablet Take 1 tablet twice a day by oral route for 7 days. 2023 active Not Available Not Available Not Avai lable gentamicin 0.1 % topical ointment APPLY A SMALL AMOUNT TO THE AFFECTED AREA BY TOPICAL ROUTE 3 TIMES PER DAY 2023 active Not Available Not Available Not Avai lable atorvastatin active Not Available Not Available Not Available aspirin active Not Available Not Avail able Not Available Co Q-10 active Not Available Not Avail able Not Available amlodipine active Not Available Not Av ailable Not Available Prilosec active Not Available Not Avai lable Not Available Toprol XL active Not Available Not Yolie ilable Not Available Remicade active Not Available Not Avai lable Not Available Multi Vitamin active Not Available Not Available Not Available Vitals None Recorded Social History Question Answer Notes LastModified by Organizat ion Details LastModified Time Tobacco Smoking Status Never Smoker Zuleima Hamagata [facility] 11/04/2023 13:20:47 What Is Your Level Of Alcohol Consumption? Occasional [email or web address] Information not available 11/04/2023 Sunscreen Use? No manuel Informatio n not available 11/04/2023 Tanning Bed Use No khstonea Informati on not available 11/04/2023 What Was The Date Of Your Most Recent Tobacco Screening? 04/17/2024 azorzi Information not available 04/17/2024 Sex: Unknown Functional Status None recorded. Mental Status None recorded. Family History Relationship Description Onset Age of this Age Resolved Age Notes LastModified by Organization Details LastModified Time Father No current problems or disability [email or web address] Not available 11/03 13:20:38 Mother No current problems or disability khamagata Not available 11/03 13:20:38 Medical History Condition Response Skin Cancer Past Encounters Encounter ID Performer Location Encounter Start Date Encounter Closed Date Diagnosis/Indication Diagnosis SNOMED-CT Code Diagnosis ICD10 Code Diagnosis Note [id number] [place] [address] 11/04/2023 13:07:36 11/04/2023 14:35:23 Neoplasm of uncertain behavior of skin 69663567 D48.5 R posterior ear - 1.5cm scaly erythemato us plaque r/o [place] vs SCC [id number] [place] [address] 01/14/2024 12:36:04 01/16/2024 11:49:32 [id number] ORALIA ROQUE AN, DO [address] [address] 02/17/2024 09:37:51 02/18/2024 04:34:11 History of malignant neoplasm of skin 988945502 Z85.828 No evidence of recurrence . Discussed risk of recurrence and new skin cancers, so regular self exam and profession al skin checks are recommende d. Sun protection with broad spectrum SPF 30 sunscreen and broad-brim med hat is recommende d. Sun protection with SPF 30 broad spectrum sunscreen and protective gear discussed. Postoperative visit 1836 93191 Z09 Pt to follow up in 3-4 weeks to check progress of healing Scar 019351217 L90.5 [id number] ORALIA ROQUE [place], [place] [address] 03/18/2024 09:09:56 03/19/2024 04:37:39 History of malignant neoplasm of skin 710728965 Z85.828 No evidence of recurrence . Discussed risk of recurrence and new skin cancers, so regular self exam and profession al skin checks are recommende d. Sun protection with broad spectrum SPF 30 sunscreen and broad-brim med hat is recommende d. Sun protection with SPF 30 broad spectrum sunscreen and protective gear discussed. Postoperative visit 1836 28755 Z09 Scar 109604256 L90.5 Follow up with regular dermatolog ist. [id number] ORALIA AGUIRREJose ELVIAHYUN ALMONTE, [place] [address] 04/15/2024 08:50:17 04/17/2024 04:16:09 History of malignant neoplasm of skin 286003163 Z85.828 No evidence of recurrence . Discussed risk of recurrence and new skin cancers, so regular self exam and profession al skin checks are recommende d. Sun protection with broad spectrum SPF 30 sunscreen and broad-brim med hat is recommende d. Sun protection with SPF 30 broad spectrum sunscreen and protective gear discussed. Postoperative visit 1836 14006 Z09 Scar 820456040 L90.5 [id number] ARMANDO MALIN MD [place] [address] 04/17/2024 12:06:21 04/17/2024 13:00:36 Melanocytic nevus of skin 470663826 D22.5 Benign lesion(s) assessed Solar lentiginosis 32330 2006 L81.4 Benign lesion(s) assessed Zinc and titanium SPF30+ sunscreen recommende d Seborrheic keratosis 394 012063 L82.1 Benign lesion(s) assessed Hemangioma of skin 78522 006 D18.01 Benign lesion(s) assessed Scar 153732567 L90.5 Z85.828 Well healed scar(s) with no evidence of recurrence . Actinic keratosis 194890 007 L57.0 Precancero us lesionsWil l treat with LN2 Neoplasm o f uncertain behavior of skin 65543345 D48.5 Right presternal : R/O ISK vs. SCCiS? Tx w/C&D [id number] ORALIA ALMONTE, [place] [address] 05/13/2024 07:54:55 05/14/2024 04:30:55 History of malignant neoplasm of skin 526816121 Z85.828 No evidence of recurrence . Discussed risk of recurrence and new skin cancers, so regular self exam and profession al skin checks are recommende d. Sun protection with broad spectrum SPF 30 sunscreen and broad-brim med hat is recommende d. Sun protection with SPF 30 broad spectrum sunscreen and protective gear discussed. Postoperative visit 1836 82523 Z09 Scar 237728881 L90.5 Curette used to freshen up wound bed. Slow healing wound. Will give ciprofloxa jazzy due to tenderness to touch likely due to chondritis of cartilage. Will continue to follow. [id number] ORALIA ALMONTE, [address] [address] 05/27/2024 08:29:54 05/28/2024 04:09:56 History of malignant neoplasm of skin 586091977 Z85.828 No evidence of recurrence . Discussed risk of recurrence and new skin cancers, so regular self exam and profession al skin checks are recommende d. Sun protection with broad spectrum SPF 30 sunscreen and broad-brim med hat is recommende d. Sun protection with SPF 30 broad spectrum sunscreen and protective gear discussed. Postoperative visit 1836 53658 Z09 No signs of infection present Scar 586849188 L90.5 2 ML of Lidocaine was used to numb area. 2mm punch was used for punch fenestrati ons of exposed cartilage to promote healing. Pt tolerated procedure well. [id number] ORALIA ALMONTE, DO [address] [address] 07/01/2024 08:34:39 07/03/2024 04:52:25 History of malignant neoplasm of skin 294186471 Z85.828 No evidence of recurrence . Discussed risk of recurrence and new skin cancers, so regular self exam and profession al skin checks are recommende d. Sun protection with broad spectrum SPF 30 sunscreen and broad-brim med hat is recommende d. Sun protection with SPF 30 broad spectrum sunscreen and protective gear discussed. Postoperative visit 1836 62638 Z09 No signs of infection present Scar 284429553 L90.5 4% topical lidocaine was used for numbing area. Curette used on edges and base of wound to promote more optimal healing. Will consider full thickness skin graft if not well healed by next visit. Health Concerns Section Related Observation LastModified by Organization Detai ls LastModified Time None Recorded Concern Status LastModified by Organization Details LastModified Time None Recorded Advance Directives Directive None Recorded Payers Encounter Date Sequence Insurance Name Policy Number Policy Magallanes Covered Member ID Magallanes Member ID Guarantor Name 04/15/2024 1 [employer] (MEDICARE REPLACEMENT/ ADVANTAGE - PPO) Raffy Grimes [id number] Raffy Grimes 04/17/2024 1 [employer] (MEDICARE REPLACEMENT/ ADVANTAGE - PPO) Raffy Grimes [id number] Raffy Grimes 05/13/2024 1 [employer] (MEDICARE REPLACEMENT/ ADVANTAGE - PPO) Raffy Grimes [id number] Raffy Grimes 05/27/2024 1 [employer] (MEDICARE REPLACEMENT/ ADVANTAGE - PPO) Raffy Grimes [id number] Raffy Grimes 07/01/2024 1 [employer] (MEDICARE REPLACEMENT/ ADVANTAGE - PPO) Raffy Grimes [id number] Raffy Grimes Notes Date Note Type Note Provider Name and Address Organization Details Recorded Time 04/15/2024 text/html mohs asc, 01-14-2024. Posterior Ear/SCCISSecond intention healingDr. Yesenia VACA DO [address] [place], [address], [facility] 04/16/2024 16:48:10 04/17/2024 text/html I am here for a skin check Hx of SCCISR. Posterior Ear pt reports a few spots of concern on face, ear and chest ARMANDO MALIN MD [address] [place], [address], [facility] 04/20/2024 11:14:24 05/13/2024 text/html Here for follow upMOHS [id number] posterior ear/ sccisGranulationDr. 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 Curette was used to freshen up wound bed. It is a Slow healing wound. Ciprofloxacin 250mg BID x 7 days was prescribed due to tenderness to touch likely due to chondritis of cartilage. ORALIA VACA DO [address] 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 At previous follow up, patient's wound not fully healed and healing very slowly. Patient was instructed to continue wound care and to follow up in 4 weeks. Prior treatement included curette, 2mm punch, Gentamicin, and Ciprofloxicin to encourage better wound healing and treat pain from chrondritis. Today he states it has healed some but still not fully healed. ORALIA VACA DO [address] [place], [address], [facility] 07/02/2024 12:09:44
--- OUTSIDE RECORDS SUMMARY | 2024-10-12 09:49 | XMS_ITS | Continuity of Care Document ---
Author Name [facility] Organization [facility] Care Team Providers Care Pre Planning Advisor Name Role Phone [facility] Unavailable Unavailable Problems Combined list of problems from [facility] and [facility] facilities. It does not include entries that were removed or entered in error. Problem Status Onset Date Problem Type Date of Resolution Comments Source Benign essential hypertension Active Condition [facility] Benign hypertension Active Condition [facility] Crohn Disease * (ICD-9-CM 555.9/555.0/555.1/558.9) Active Condition [facility] Crohn's disease Active Condition [facility] Gastroesophageal reflux disease Active Condition [facility] Gastroesophageal reflux disease Active Condition [facility] HTN * (ICD-9-CM 401.9) Active Condition [facility] Hyperlipidemia Active Condition [facility] [facility] Polyclonal hypergammaglobulinemia Active Condition [facility] Sinusitis Active Condition [facility] Tobacco Use Disorder, Remission (ICD-9-CM 305.1) Active Condition [facility] Diagnosis: ICD-10-CM Z71.89 Other specified counseling Active Diagnosis [facility] Diagnosis: ICD-10-CM D89.0 Polyclonal hypergammaglobulinemia Active Diagnosis [facility] Diagnosis: ICD-10-CM I10 Essential (primary) hypertension Active Diagnosis [facility] Medications Combined list of outpatient medications from [facility] and [facility] facilities.Medications provided include 1) outpatient medications from the last 15 months, and 2) patient-reported medications. Medication Details Route Status Patient Instructions Prescription Expires Prescription Number Last Dispense Date Ordering Provider Order Date Order Qty Source AMLODIPINE BESYLATE 2.5MG TAB TAKE ONE TABLET BY MOUTH DAILY ORAL ACTIVE GRANT LOW 2018 [place] [facility] ASPIRIN 81MG TAB,EC TAKE ONE TABLET BY MOUTH DAILY ORAL ACTIVE BUCIO,E MEREDITH A 2010 [place] [facility] HYDROCHLORO THIAZIDE 12.5MG CAP TAKE 1 CAPSULE BY MOUTH DAILY ORAL ACTIVE GRANT LOW 2020 [place] [facility] INFLIXIMAB INJ,LYPHL INJECT INTO THE VEIN DIRECTED [id number] INTRAV ENOUS ACTIVE GRANT LOW 2014 [place] [facility] METOPROLOL SUCCINATE 50MG TAB,SA TAKE ONE-HALF TABLET BY MOUTH DAILY ORAL ACTIVE BUCIO,E MEREDITH A 2010 [place] [facility] OMEPRAZOLE 20MG CAP,EC TAKE 1 CAPSULE BY MOUTH DAILY ORAL ACTIVE BUCIO,E MEREDITH A 2010 [place] [facility] ROSUVASTATI N CA 40MG TAB TAKE ONE-HALF TABLET BY MOUTH AT BEDTIME ORAL ACTIVE BUCIO,E MEREDITH A 2010 [place] [facility] Immunizations Combined list of available immunizations from the Department of Defense and Veterans Affairs facilities. Immunization Series Date Given Administered By Site Reaction Lot Number CVX Code Drug Distribution Lineman Status Comments Source INFLUENZA, UNSPECIFIED FORMULATION 2022 88 complet ed HISTORICA L INFORMATI ON - SOURCE UNSPECIFI ED, [place] [facility] COVID-19 (PFIZER), MRNA, LNP-S, PF, 30 MCG/0.3 ML DOSE, JOI-SUCROSE (AGES 12+ YEARS) 4 2021 217 complet ed HISTORICA L INFORMATI ON - FROM OTHER REGISTRY, [place] [facility] COVID-19 (PFIZER), MRNA, LNP-S, PF, 30 MCG/0.3 ML DOSE 3 2020 208 complet ed HISTORICA L INFORMATI ON - FROM OTHER REGISTRY, [place] [facility] INFLUENZA, HIGH-DOSE, QUADRIVALENT 5 2020 197 complet ed HISTORICA L INFORMATI ON - FROM OTHER REGISTRY, [place] [facility] INFLUENZA, UNSPECIFIED FORMULATION 2020 88 complet ed [place] [facility] COVID-19 (PFIZER), MRNA, LNP-S, PF, 30 MCG/0.3 ML DOSE 2 2020 208 complet ed HISTORICA L INFORMATI ON - FROM OTHER REGISTRY, [place] [facility] COVID-19 (PFIZER), MRNA, LNP-S, PF, 30 MCG/0.3 ML DOSE 1 2020 208 complet ed HISTORICA L INFORMATI ON - FROM OTHER REGISTRY, [place] [facility] INFLUENZA, UNSPECIFIED FORMULATION 2019 88 complet ed [place] [facility] INFLUENZA, HIGH DOSE SEASONAL 4 2019 135 complet ed HISTORICA L INFORMATI ON - FROM OTHER REGISTRY, [place] [facility] PNEUMOCOCCAL POLYSACCHARID E PPV23 1 2019 33 complet ed HISTORICA L INFORMATI ON - FROM OTHER REGISTRY, [place] [facility] INFLUENZA, HIGH DOSE SEASONAL 3 2018 135 complet ed HISTORICA L INFORMATI ON - FROM OTHER REGISTRY, [place] [facility] INFLUENZA, SEASONAL, INJECTABLE 2018 141 complet ed UTD [place] [facility] HEP A, ADULT 3 2018 52 complet ed HISTORICA L INFORMATI ON - FROM OTHER REGISTRY, [place] [facility] HEP A-HEP B 2 2017 104 complet ed HISTORICA L INFORMATI ON - FROM OTHER REGISTRY, [place] [facility] HEP A-HEP B 1 2017 104 complet ed HISTORICA L INFORMATI ON - FROM OTHER REGISTRY, [place] [facility] INFLUENZA, HIGH DOSE SEASONAL 2 2017 135 complet ed HISTORICA L INFORMATI ON - FROM OTHER REGISTRY, [place] [facility] INFLUENZA A & B (HISTORICAL) 2016 88 complet ed UTD [place] [facility] INFLUENZA, HIGH DOSE SEASONAL 1 2016 135 complet ed HISTORICA L INFORMATI ON - FROM OTHER REGISTRY, [place] [facility] ZOSTER LIVE 1 2015 121 complet ed HISTORICA L INFORMATI ON - FROM OTHER REGISTRY, [place] [facility] INFLUENZA A & B (HISTORICAL) 2015 88 complet ed UTD [place] [facility] INFLUENZA A & B (HISTORICAL) 2014 88 complet ed UTD [place] [facility] PNEUMOC[facility]CC[facility] CONJUGATE PCV 13 2012 133 complet ed PER PT. HX. [place] [facility] INFLU[facility] A & B (HISTORICAL) 2012 88 complet ed UP TO DATE [place] [facility] INFLUENZA A & B (HISTORICAL) 2011 88 complet ed UP TO DATE FOR THE FLU SEASON. [place] [facility] DTP 2011 [place] 01 complet ed [place] [facility] INFLUENZA A & B (HISTORICAL) 2010 88 complet ed UP TO DATE FOR THE 2011-05 FLU SEASON. [place] [facility] INFLUENZA A & B (HISTORICAL) 2009 88 complet ed [place] [facility] PNEUMOCOCCAL, UNSPECIFIED FORMULATION 2009 109 complet ed UP TO DATE [place] [facility] Results Combined list of recent chemistry, hematology and other laboratory results from Department of Defense and Veterans Affairs, ranging from 15 months to all on record, depending upon the facility. Order Name Results Value Reference Range Date Interpretation Specimen Comments Source TOTAL PROTEIN PROTEIN [MASS/VOLU ME] IN URINE <12mg/dL 0 - 14 11/28 Specimen Type: URINE No comment entered. Ordering Provider: GRANT CROSS Report Released Date/Time: November 11, 2023 01:14 PM Reporting Lab: [facility] [address] [address] Performing Lab: [facility] [address] [address] [facility] URINALYS IS COLOR OF URINE Light Yellow 11/28 Specimen Type: URINE Comment: Microscopic not indicated Ordering Provider: GRANT CROSS Report Released Date/Time: November 11, 2023 01:14 PM Reporting Lab: [facility] [address] [address] Performing Lab: [facility] [address] [address] [facility] URINALYS IS APPEARANCE OF URINE Clear 11/28 Specimen Type: URINE Comment: Microscopic not indicated Ordering Provider: GRANT CROSS Report Released Date/Time: November 11, 2023 01:14 PM Reporting Lab: [address] [phone] Performing Lab: [address] [phone] [facility] URINALYS IS UROBILINOG EN [MASS/VOLU ME] IN URINE BY TEST STRIP Normalmg /dL 11/28 Specimen Type: URINE Comment: Microscopic not indicated Ordering Provider: GRANT CROSS Report Released Date/Time: November 11, 2023 01:14 PM Reporting Lab: [address] [phone] Performing Lab: [address] [phone] [place] [address] URINALYS IS HEMOGLOBIN [PRESENCE] IN URINE BY TEST STRIP Negative 11/28 Specimen Type: URINE Comment: Microscopic not indicated Ordering Provider: GRANT CROSS Report Released Date/Time: November 11, 2023 01:14 PM Reporting Lab: [address] [phone] Performing Lab: [address] [address] [facility] URINALYS IS BILIRUBIN. TOTAL [PRESENCE] IN URINE BY TEST STRIP Negative 11/28 Specimen Type: URINE Comment: Microscopic not indicated Ordering Provider: GRANT CROSS Report Released Date/Time: November 11, 2023 01:14 PM Reporting Lab: [address] [address] Performing Lab: [address] [address] [facility] URINALYS IS KETONES [MASS/VOLU ME] IN URINE BY TEST STRIP Negative mg/dL 11/28 Specimen Type: URINE Comment: Microscopic not indicated Ordering Provider: GRANT CROSS Report Released Date/Time: November 11, 2023 01:14 PM Reporting Lab: [address] [address] Performing Lab: [address] [address] [facility] URINALYS IS PROTEIN [MASS/VOLU ME] IN URINE BY TEST STRIP Negative mg/dL 11/28 Specimen Type: URINE Comment: Microscopic not indicated Ordering Provider: GRANT CROSS Report Released Date/Time: November 11, 2023 01:14 PM Reporting Lab: [address] [address] Performing Lab: [address] [address] [facility] URINALYS IS PH OF URINE BY TEST STRIP 6.5 4.5 - 8.0 11/28 Specimen Type: URINE Comment: Microscopic not indicated Ordering Provider: GRANT CROSS Report Released Date/Time: November 11, 2023 01:14 PM Reporting Lab: [address] [phone] Performing Lab: [address] [address] [facility] URINALYS IS NITRITE [PRESENCE] IN URINE BY TEST STRIP Negative 11/28 Specimen Type: URINE Comment: Microscopic not indicated Ordering Provider: GRANT CROSS Report Released Date/Time: November 11, 2023 01:14 PM Reporting Lab: [address] [phone] Performing Lab: [address] [phone] [facility] URINALYS IS LEUKOCYTE ESTERASE [PRESENCE] IN URINE BY TEST STRIP Negative 11/28 Specimen Type: URINE Comment: Microscopic not indicated Ordering Provider: GRANT CROSS Report Released Date/Time: November 11, 2023 01:14 PM Reporting Lab: [address] [address] Performing Lab: [address] [address] [facility] URINALYS IS SPECIFIC GRAVITY OF URINE 1.010 1.005 - 1.030 11/28 Specimen Type: URINE Comment: Microscopic not indicated Ordering Provider: GRANT CROSS Report Released Date/Time: November 11, 2023 01:14 PM Reporting Lab: [place] [phone] Performing Lab: [place] [phone] URINALYS IS GLUCOSE [MASS/VOLU ME] IN URINE BY TEST STRIP Negative mg/dL 11/28 Specimen Type: URINE Comment: Microscopic not indicated Ordering Provider: GRANT CROSS Report Released Date/Time: November 11, 2023 01:14 PM Reporting Lab: [place] [phone] Performing Lab: [address] CREATINI NE CREATININE [MASS/VOLU ME] IN URINE 65.3 mg/dL 11/28 Specimen Type: URINE No comment entered. Ordering Provider: GRANT CROSS Report Released Date/Time: November 11, 2023 01:14 PM Reporting Lab: [place] [phone] Performing Lab: [address] eGFR + CREATINI NE CREATININE [MASS/VOLU ME] IN SERUM OR PLASMA 1.26 mg/dL 0.72 - 1.25 11/28 H Specimen Type: PLASMA Comment: Estimated Glomerular Filtration Rate (eGFR) calculated using the 2020 Chronic Kidney Disease-Epi demiology (CKD-EPI) Collaborati on creatinine equation; units of measure are mL/min/1.73 m2. Results are only valid for adults (>=18 years) whose serum creatinine is in a steady state. eGFR calculation s are not valid for patients with acute kidney injury and for patients on dialysis. Creatinine- based estimates of kidney function may also be inaccurate in patients with reduced creatinine generation due to decreased muscle mass (e.g., malnutritio n, severe hypoalbumin emia, sarcopenia, chronic neuromuscul ar disease, amputations , severe heart failure or liver disease) and in patients with increased creatinine generation due to increased muscle mass (e.g., muscle builders, anabolic steroids) or increased dietary intake. As drug clearance is proportiona l to total GFR and not GFR indexed to body surface area (BSA), in individuals with a BSA substantial ly different than 1.73 m2, drug dosing should be based on the reported eGFR value de-indexed from BSA by multiplying by the individual' s BSA and dividing by 1.73. CKD is diagnosed based on abnormaliti es of kidney structure or function, present for >3 months, with implication s for health and disease. CKD is classified and staged based on cause, eGFR and albuminuria (quantified as urine albumin to creatinine ratio). An eGFR >60 mL/min/1.73 m2 in the absence of increased urine albumin excretion or structural abnormaliti es does not represent CKD. eGFR CKD Interpretat ion (mL/min/1.7 3 m2) stage >=90 G1 Normal 60-89 G2 Mild decrease 45-59 G3A Mild to moderate decrease 30-44 G3B Moderate to severe decrease 15-29 G4 Severe decrease <15 G5 Kidney failure Ordering Provider: GRANT CROSS Report Released Date/Time: November 11, 2023 01:14 PM Reporting Lab: [facility] [address] [address] Performing Lab: [facility] [address] [address] [facility] eGFR + CREATINI NE GLOMERULAR FILTRATION RATE/1.73 SQ M.PREDICTE D [VOLUME RATE/AREA] IN SERUM, PLASMA OR BLOOD BY CREATININE -BASED FORMULA (CKD-EPI 2020) 59 11/28 Specimen Type: PLASMA Comment: Estimated Glomerular Filtration Rate (eGFR) calculated using the 2020 Chronic Kidney Disease-Epi demiology (CKD-EPI) Collaborati on creatinine equation; units of measure are mL/min/1.73 m2. Results are only valid for adults (>=18 years) whose serum creatinine is in a steady state. eGFR calculation s are not valid for patients with acute kidney injury and for patients on dialysis. Creatinine- based estimates of kidney function may also be inaccurate in patients with reduced creatinine generation due to decreased muscle mass (e.g., malnutritio n, severe hypoalbumin emia, sarcopenia, chronic neuromuscul ar disease, amputations , severe heart failure or liver disease) and in patients with increased creatinine generation due to increased muscle mass (e.g., muscle builders, anabolic steroids) or increased dietary intake. As drug clearance is proportiona l to total GFR and not GFR indexed to body surface area (BSA), in individuals with a BSA substantial ly different than 1.73 m2, drug dosing should be based on the reported eGFR value de-indexed from BSA by multiplying by the individual' s BSA and dividing by 1.73. CKD is diagnosed based on abnormaliti es of kidney structure or function, present for >3 months, with implication s for health and disease. CKD is classified and staged based on cause, eGFR and albuminuria (quantified as urine albumin to creatinine ratio). An eGFR >60 mL/min/1.73 m2 in the absence of increased urine albumin excretion or structural abnormaliti es does not represent CKD. eGFR CKD Interpretat ion (mL/min/1.7 3 m2) stage >=90 G1 Normal 60-89 G2 Mild decrease 45-59 G3A Mild to moderate decrease 30-44 G3B Moderate to severe decrease 15-29 G4 Severe decrease <15 G5 Kidney failure Ordering Provider: GRANT CROSS Report Released Date/Time: November 11, 2023 01:14 PM Reporting Lab: [facility] [address] [address] Performing Lab: [facility] [address] [address] [facility] HBSAB HEPATITIS B VIRUS SURFACE AB [PRESENCE] IN SERUM BY IMMUNOASSA Y Nonreact feliberto 10/21 Specimen Type: SERUM Comment: FOR HBSAB TESTING: Reactive HBsAb denotes immunity by vaccination or recovery from Hepatitis B infection. Individuals found to be reactive for both HBV Core AB total and HBsAb are immune due to prior natural infection. Individuals found to be nonreactive for HBV Core AB total and reactive for HBsAb (anti-HBs) are immune due to prior immunizatio n. Individuals found to be reactive for HBV Core AB total and nonreactive for HBsAb (anti-HBs) are considered to have a current Hepatitis B infection, either acute or chronic. Individuals found to be nonreactive for both HBV Core AB total and HBsAb are at risk for Hepatitis B infection (HBV) and HBV immunizatio n should be considered. Ordering Provider: GRANT CROSS Report Released Date/Time: Oct 22, 2023 01:26 PM Reporting Lab: [place] [address] Performing Lab: [address] KAPPA + LAMBDA Lt CHAINS, FREE, Serum KAPPA LIGHT CHAINS.TOÑITO E [MASS/VOLU ME] IN SERUM 94.9 mg/L 3.3 - 19.4 10/21 H Specimen Type: SERUM No comment entered. Ordering Provider: GRANT CROSS Report Released Date/Time: Oct 22, 2023 01:10 PM Reporting Lab: [place] [phone] Performing Lab: [address] [facility] KAPPA + LAMBDA Lt CHAINS, FREE, Serum LAMBDA LIGHT CHAINS.TOÑITO E [MASS/VOLU ME] IN SERUM OR PLASMA 104.0 mg/L 5.7 - 26.3 10/21 H Specimen Type: SERUM No comment entered. Ordering Provider: GRANT CROSS Report Released Date/Time: Oct 22, 2023 01:10 PM Reporting Lab: [place] [phone] Performing Lab: [place] [phone] [facility] KAPPA + LAMBDA Lt CHAINS, FREE, Serum KAPPA LIGHT CHAINS.TOÑITO E/LAMBDA LIGHT CHAINS.TOÑITO E [MASS RATIO] IN SERUM 0.91 0.26 - 1.65 10/21 Specimen Type: SERUM No comment entered. Ordering Provider: GRANT CROSS Report Released Date/Time: Oct 22, 2023 01:10 PM Reporting Lab: [place] [address] Performing Lab: [address] [phone] [facility] (SERUM) ALBUMIN [MASS/VOLU ME] IN SERUM OR PLASMA BY ELECTROPHO RESIS 3.3 g/dL 2.9 - 4.4 10/21 Specimen Type: SERUM Comment: Results confirmed on dilution. No monoclonali ty detected. Ordering Provider: GRANT CROSS Report Released Date/Time: Oct 22, 2023 01:10 PM Reporting Lab: [place] [address] Performing Lab: [address] [address] [facility] (SERUM) ALPHA 1 GLOBULIN [MASS/VOLU ME] IN SERUM OR PLASMA BY ELECTROPHO RESIS 0.3 g/dL 0.0 - 0.4 10/21 Specimen Type: SERUM Comment: Results confirmed on dilution. No monoclonali ty detected. Ordering Provider: GRANT CROSS Report Released Date/Time: Oct 22, 2023 01:10 PM Reporting Lab: [place] [phone] Performing Lab: [address] [phone] [facility] (SERUM) ALPHA 2 GLOBULIN [MASS/VOLU ME] IN SERUM OR PLASMA BY ELECTROPHO RESIS 0.9 g/dL 0.4 - 1.0 10/21 Specimen Type: SERUM Comment: Results confirmed on dilution. No monoclonali ty detected. Ordering Provider: GRANT CROSS Report Released Date/Time: Oct 22, 2023 01:10 PM Reporting Lab: [place] [address] Performing Lab: [address] [phone] [facility] (SERUM) BETA GLOBULIN [MASS/VOLU ME] IN SERUM OR PLASMA BY ELECTROPHO RESIS 1.6 g/dL 0.7 - 1.3 10/21 H Specimen Type: SERUM Comment: Results confirmed on dilution. No monoclonali ty detected. Ordering Provider: GRANT CROSS Report Released Date/Time: Oct 22, 2023 01:10 PM Reporting Lab: [place] [phone] Performing Lab: [place] [phone] [facility] (SERUM) GAMMA GLOBULIN [MASS/VOLU ME] IN SERUM OR PLASMA BY ELECTROPHO RESIS 2.0 g/dL 0.4 - 1.8 10/21 H Specimen Type: SERUM Comment: Results confirmed on dilution. No monoclonali ty detected. Ordering Provider: GRANT CROSS Report Released Date/Time: Oct 22, 2023 01:10 PM Reporting Lab: [place] [phone] Performing Lab: [place] [phone] [facility] (SERUM) IGG [MASS/VOLU ME] IN SERUM OR PLASMA 1677 mg/dL 603 - 1613 10/21 H Specimen Type: SERUM Comment: Results confirmed on dilution. No monoclonali ty detected. Ordering Provider: GRANT CROSS Report Released Date/Time: Oct 22, 2023 01:10 PM Reporting Lab: [place] [phone] Performing Lab: [place] [phone] [facility] (SERUM) IGA [MASS/VOLU ME] IN SERUM OR PLASMA 1347 mg/dL 61 - 437 10/21 H Specimen Type: SERUM Comment: Results confirmed on dilution. No monoclonali ty detected. Ordering Provider: GRANT CROSS Report Released Date/Time: Oct 22, 2023 01:10 PM Reporting Lab: [place] [phone] Performing Lab: [address] [address] [facility] (SERUM) IGM [MASS/VOLU ME] IN SERUM OR PLASMA 223 mg/dL 15 - 143 10/21 H Specimen Type: SERUM Comment: Results confirmed on dilution. No monoclonali ty detected. Ordering Provider: GRANT CROSS Report Released Date/Time: Oct 22, 2023 01:10 PM Reporting Lab: [place] [phone] Performing Lab: [place] [phone] [facility] (SERUM) PROTEIN [MASS/VOLU ME] IN SERUM OR PLASMA 8.1 g/dL 6.0 - 8.5 10/21 Specimen Type: SERUM Comment: Results confirmed on dilution. No monoclonali ty detected. Ordering Provider: GRANT CROSS Report Released Date/Time: Oct 22, 2023 01:10 PM Reporting Lab: [place] [phone] Performing Lab: [address] [phone] [facility] (SERUM) ALBUMIN/GL OBULIN [MASS RATIO] IN SERUM OR PLASMA 0.7 0.7 - 1.7 10/21 Specimen Type: SERUM Comment: Results confirmed on dilution. No monoclonali ty detected. Ordering Provider: GRANT CROSS Report Released Date/Time: Oct 22, 2023 01:10 PM Reporting Lab: [place] [phone] Performing Lab: [address] [phone] [facility] (SERUM) GLOBULIN [MASS/VOLU ME] IN SERUM 4.8 g/dL 2.2 - 3.9 10/21 H Specimen Type: SERUM Comment: Results confirmed on dilution. No monoclonali ty detected. Ordering Provider: GRANT CROSS Report Released Date/Time: Oct 22, 2023 01:10 PM Reporting Lab: [place] [phone] Performing Lab: [address] (SERUM) PROTEIN.MO NOCLONAL [MASS/VOLU ME] IN SERUM OR PLASMA BY ELECTROPHO RESIS Not Observed g/dL 10/21 Specimen Type: SERUM Comment: Results confirmed on dilution. No monoclonali ty detected. Ordering Provider: GRANT CROSS Report Released Date/Time: Oct 22, 2023 01:10 PM Reporting Lab: [place] [phone] Performing Lab: [address] (SERUM) IMMUNOELEC TROPHORESI S FOR SERUM OR PLASMA Comment 10/21 Specimen Type: SERUM Comment: Results confirmed on dilution. No monoclonali ty detected. Ordering Provider: GRANT CROSS Report Released Date/Time: Oct 22, 2023 01:10 PM Reporting Lab: [place] [phone] Performing Lab: [place] [phone] [place] [address] CBC/PLT LEUKOCYTES [#/VOLUME] IN BLOOD BY AUTOMATED COUNT 6.5 10*3/uL 5.0 - 10.0 10/21 Specimen Type: BLOOD No comment entered. Ordering Provider: GRANT CROSS Report Released Date/Time: Oct 22, 2023 01:10 PM Reporting Lab: [place] [phone] Performing Lab: [place] [phone] [place] [address] CBC/PLT ERYTHROCYT ES [#/VOLUME] IN BLOOD BY AUTOMATED COUNT 4.11 10*6/uL 4.6 - 6.2 10/21 L Specimen Type: BLOOD No comment entered. Ordering Provider: GRANT CROSS Report Released Date/Time: Oct 22, 2023 01:10 PM Reporting Lab: [address] [phone] Performing Lab: [address] [phone] [place] [address] CBC/PLT HEMOGLOBIN [MASS/VOLU ME] IN BLOOD 13.1 g/dL 14.0 - 18.0 10/21 L Specimen Type: BLOOD No comment entered. Ordering Provider: GRANT CROSS Report Released Date/Time: Oct 22, 2023 01:10 PM Reporting Lab: [address] [phone] Performing Lab: [address] [phone] [place] [address] CBC/PLT HEMATOCRIT [VOLUME FRACTION] OF BLOOD BY AUTOMATED COUNT 39.7 42.0 - 52.0 10/21 L Specimen Type: BLOOD No comment entered. Ordering Provider: GRANT CROSS Report Released Date/Time: Oct 22, 2023 01:10 PM Reporting Lab: [address] [phone] Performing Lab: [address] [phone] [place] [address] CBC/PLT MCV [ENTITIC VOLUME] BY AUTOMATED COUNT 96.6 fL 80.0 - 94.0 10/21 H Specimen Type: BLOOD No comment entered. Ordering Provider: GRANT CROSS Report Released Date/Time: Oct 22, 2023 01:10 PM Reporting Lab: [address] [address] Performing Lab: [address] [address] [facility] CBC/PLT MCH [ENTITIC MASS] BY AUTOMATED COUNT 31.9 pg 27.0 - 31.0 10/21 H Specimen Type: BLOOD No comment entered. Ordering Provider: GRANT CROSS Report Released Date/Time: Oct 22, 2023 01:10 PM Reporting Lab: [address] [address] Performing Lab: [address] [place] [address] [facility] CBC/PLT MCHC [MASS/VOLU ME] BY AUTOMATED COUNT 33.0 g/dL 32.0 - 36.0 10/21 Specimen Type: BLOOD No comment entered. Ordering Provider: GRANT CROSS Report Released Date/Time: Oct 22, 2023 01:10 PM Reporting Lab: [place] [phone] Performing Lab: [place] [id number] [place] [address] CBC/PLT PLATELETS [#/VOLUME] IN BLOOD 218 10*3/uL 150 - 450 10/21 Specimen Type: BLOOD No comment entered. Ordering Provider: GRANT CROSS Report Released Date/Time: Oct 22, 2023 01:10 PM Reporting Lab: [place] [phone] Performing Lab: [place] [id number] [place] [address] CBC/PLT PLATELET MEAN VOLUME [ENTITIC VOLUME] IN BLOOD 10.1 fL 9.0 - 13.1 10/21 Specimen Type: BLOOD No comment entered. Ordering Provider: GRANT CROSS Report Released Date/Time: Oct 22, 2023 01:10 PM Reporting Lab: [place] [phone] Performing Lab: [place] [id number] [place] [address] CBC/PLT ERYTHROCYT E DISTRIBUTI ON WIDTH [ENTITIC VOLUME] BY AUTOMATED COUNT 13.2 11.0 - 16.0 10/21 Specimen Type: BLOOD No comment entered. Ordering Provider: GRANT CROSS Report Released Date/Time: Oct 22, 2023 01:10 PM Reporting Lab: [address] [address] Performing Lab: [place] [phone] [place] [address] CBC/PLT NUCLEATED ERYTHROCYT ES/100 ERYTHROCYT ES IN BLOOD 0.0 0.0 - 0.0 10/21 Specimen Type: BLOOD No comment entered. Ordering Provider: GRANT CROSS Report Released Date/Time: Oct 22, 2023 01:10 PM Reporting Lab: [facility] [address] [facility] [address] Performing Lab: [facility] [address] [address] [facility] PANEL 5 CREATININE [MASS/VOLU ME] IN SERUM OR PLASMA 1.42 mg/dL 0.72 - 1.25 10/21 H Specimen Type: PLASMA Comment: Estimated Glomerular Filtration Rate (eGFR) calculated using the 2020 Chronic Kidney Disease-Epi demiology (CKD-EPI) Collaborati on creatinine equation; units of measure are mL/min/1.73 m2. Results are only valid for adults (>=18 years) whose serum creatinine is in a steady state. eGFR calculation s are not valid for patients with acute kidney injury and for patients on dialysis. Creatinine- based estimates of kidney function may also be inaccurate in patients with reduced creatinine generation due to decreased muscle mass (e.g., malnutritio n, severe hypoalbumin emia, sarcopenia, chronic neuromuscul ar disease, amputations , severe heart failure or liver disease) and in patients with increased creatinine generation due to increased muscle mass (e.g., muscle builders, anabolic steroids) or increased dietary intake. As drug clearance is proportiona l to total GFR and not GFR indexed to body surface area (BSA), in individuals with a BSA substantial ly different than 1.73 m2, drug dosing should be based on the reported eGFR value de-indexed from BSA by multiplying by the individual' s BSA and dividing by 1.73. CKD is diagnosed based on abnormaliti es of kidney structure or function, present for >3 months, with implication s for health and disease. CKD is classified and staged based on cause, eGFR and albuminuria (quantified as urine albumin to creatinine ratio). An eGFR >60 mL/min/1.73 m2 in the absence of increased urine albumin excretion or structural abnormaliti es does not represent CKD. eGFR CKD Interpretat ion (mL/min/1.7 3 m2) stage >=90 G1 Normal 60-89 G2 Mild decrease 45-59 G3A Mild to moderate decrease 30-44 G3B Moderate to severe decrease 15-29 G4 Severe decrease <15 G5 Kidney failure Ordering Provider: GRANT CROSS Report Released Date/Time: Oct 22, 2023 01:10 PM Reporting [facility] [address] [address] Performing Lab: [facility] [address] [address] [facility] PANEL 5 UREA NITROGEN [MASS/VOLU ME] IN SERUM OR PLASMA 17 mg/dL 10/21 Specimen Type: PLASMA Comment: Estimated Glomerular Filtration Rate (eGFR) calculated using the 2020 Chronic Kidney Disease-Epi demiology (CKD-EPI) Collaborati on creatinine equation; units of measure are mL/min/1.73 m2. Results are only valid for adults (>=18 years) whose serum creatinine is in a steady state. eGFR calculation s are not valid for patients with acute kidney injury and for patients on dialysis. Creatinine- based estimates of kidney function may also be inaccurate in patients with reduced creatinine generation due to decreased muscle mass (e.g., malnutritio n, severe hypoalbumin emia, sarcopenia, chronic neuromuscul ar disease, amputations , severe heart failure or liver disease) and in patients with increased creatinine generation due to increased muscle mass (e.g., muscle builders, anabolic steroids) or increased dietary intake. As drug clearance is proportiona l to total GFR and not GFR indexed to body surface area (BSA), in individuals with a BSA substantial ly different than 1.73 m2, drug dosing should be based on the reported eGFR value de-indexed from BSA by multiplying by the individual' s BSA and dividing by 1.73. CKD is diagnosed based on abnormaliti es of kidney structure or function, present for >3 months, with implication s for health and disease. CKD is classified and staged based on cause, eGFR and albuminuria (quantified as urine albumin to creatinine ratio). An eGFR >60 mL/min/1.73 m2 in the absence of increased urine albumin excretion or structural abnormaliti es does not represent CKD. eGFR CKD Interpretat ion (mL/min/1.7 3 m2) stage >=90 G1 Normal 60-89 G2 Mild decrease 45-59 G3A Mild to moderate decrease 30-44 G3B Moderate to severe decrease 15-29 G4 Severe decrease <15 G5 Kidney failure Ordering Provider: GRANT CROSS Report Released Date/Time: Oct 22, 2023 01:10 PM Reporting Lab: [facility] [address] [address] Performing Lab: [facility] [address] [address] [facility] PANEL 5 GLUCOSE [MASS/VOLU ME] IN SERUM OR PLASMA 170 mg/dL 74 - 100 10/21 H Specimen Type: PLASMA Comment: Estimated Glomerular Filtration Rate (eGFR) calculated using the 2020 Chronic Kidney Disease-Epi demiology (CKD-EPI) Collaborati on creatinine equation; units of measure are mL/min/1.73 m2. Results are only valid for adults (>=18 years) whose serum creatinine is in a steady state. eGFR calculation s are not valid for patients with acute kidney injury and for patients on dialysis. Creatinine- based estimates of kidney function may also be inaccurate in patients with reduced creatinine generation due to decreased muscle mass (e.g., malnutritio n, severe hypoalbumin emia, sarcopenia, chronic neuromuscul ar disease, amputations , severe heart failure or liver disease) and in patients with increased creatinine generation due to increased muscle mass (e.g., muscle builders, anabolic steroids) or increased dietary intake. As drug clearance is proportiona l to total GFR and not GFR indexed to body surface area (BSA), in individuals with a BSA substantial ly different than 1.73 m2, drug dosing should be based on the reported eGFR value de-indexed from BSA by multiplying by the individual' s BSA and dividing by 1.73. CKD is diagnosed based on abnormaliti es of kidney structure or function, present for >3 months, with implication s for health and disease. CKD is classified and staged based on cause, eGFR and albuminuria (quantified as urine albumin to creatinine ratio). An eGFR >60 mL/min/1.73 m2 in the absence of increased urine albumin excretion or structural abnormaliti es does not represent CKD. eGFR CKD Interpretat ion (mL/min/1.7 3 m2) stage >=90 G1 Normal 60-89 G2 Mild decrease 45-59 G3A Mild to moderate decrease 30-44 G3B Moderate to severe decrease 15-29 G4 Severe decrease <15 G5 Kidney failure Ordering Provider: GRANT CROSS Report Released Date/Time: Oct 22, 2023 01:10 PM Reporting Lab: [facility] [address] [address] Performing Lab: [facility] [address] [address] [facility] PANEL 5 SODIUM [MOLES/VOL UME] IN SERUM OR PLASMA 137 mmol/L 136 - 145 10/21 Specimen Type: PLASMA Comment: Estimated Glomerular Filtration Rate (eGFR) calculated using the 2020 Chronic Kidney Disease-Epi demiology (CKD-EPI) Collaborati on creatinine equation; units of measure are mL/min/1.73 m2. Results are only valid for adults (>=18 years) whose serum creatinine is in a steady state. eGFR calculation s are not valid for patients with acute kidney injury and for patients on dialysis. Creatinine- based estimates of kidney function may also be inaccurate in patients with reduced creatinine generation due to decreased muscle mass (e.g., malnutritio n, severe hypoalbumin emia, sarcopenia, chronic neuromuscul ar disease, amputations , severe heart failure or liver disease) and in patients with increased creatinine generation due to increased muscle mass (e.g., muscle builders, anabolic steroids) or increased dietary intake. As drug clearance is proportiona l to total GFR and not GFR indexed to body surface area (BSA), in individuals with a BSA substantial ly different than 1.73 m2, drug dosing should be based on the reported eGFR value de-indexed from BSA by multiplying by the individual' s BSA and dividing by 1.73. CKD is diagnosed based on abnormaliti es of kidney structure or function, present for >3 months, with implication s for health and disease. CKD is classified and staged based on cause, eGFR and albuminuria (quantified as urine albumin to creatinine ratio). An eGFR >60 mL/min/1.73 m2 in the absence of increased urine albumin excretion or structural abnormaliti es does not represent CKD. eGFR CKD Interpretat ion (mL/min/1.7 3 m2) stage >=90 G1 Normal 60-89 G2 Mild decrease 45-59 G3A Mild to moderate decrease 30-44 G3B Moderate to severe decrease 15-29 G4 Severe decrease <15 G5 Kidney failure Ordering Provider: GRANT CROSS Report Released Date/Time: Oct 22, 2023 01:10 PM Reporting Lab: [facility] [address] [address] Performing Lab: [facility] [address] [address] [facility] 5 POTASSIUM [MOLES/VOL UME] IN SERUM OR PLASMA 4.2 mmol/L 3.5 - 5.1 10/21 Specimen Type: PLASMA Comment: Estimated Glomerular Filtration Rate (eGFR) calculated using the 2020 Chronic Kidney Disease-Epi demiology (CKD-EPI) Collaborati on creatinine equation; units of measure are mL/min/1.73 m2. Results are only valid for adults (>=18 years) whose serum creatinine is in a steady state. eGFR calculation s are not valid for patients with acute kidney injury and for patients on dialysis. Creatinine- based estimates of kidney function may also be inaccurate in patients with reduced creatinine generation due to decreased muscle mass (e.g., malnutritio n, severe hypoalbumin emia, sarcopenia, chronic neuromuscul ar disease, amputations , severe heart failure or liver disease) and in patients with increased creatinine generation due to increased muscle mass (e.g., muscle builders, anabolic steroids) or increased dietary intake. As drug clearance is proportiona l to total GFR and not GFR indexed to body surface area (BSA), in individuals with a BSA substantial ly different than 1.73 m2, drug dosing should be based on the reported eGFR value de-indexed from BSA by multiplying by the individual' s BSA and dividing by 1.73. CKD is diagnosed based on abnormaliti es of kidney structure or function, present for >3 months, with implication s for health and disease. CKD is classified and staged based on cause, eGFR and albuminuria (quantified as urine albumin to creatinine ratio). An eGFR >60 mL/min/1.73 m2 in the absence of increased urine albumin excretion or structural abnormaliti es does not represent CKD. eGFR CKD Interpretat ion (mL/min/1.7 3 m2) stage >=90 G1 Normal 60-89 G2 Mild decrease 45-59 G3A Mild to moderate decrease 30-44 G3B Moderate to severe decrease 15-29 G4 Severe decrease <15 G5 Kidney failure Ordering Provider: GRANT CROSS Report Released Date/Time: Oct 22, 2023 01:10 PM Reporting Lab: [facility] [address] [address] Performing Lab: [facility] [address] [address] [facility] PANEL 5 CHLORIDE [MOLES/VOL UME] IN SERUM OR PLASMA 105 mmol/L 98 - 107 10/21 Specimen Type: PLASMA Comment: Estimated Glomerular Filtration Rate (eGFR) calculated using the 2020 Chronic Kidney Disease-Epi demiology (CKD-EPI) Collaborati on creatinine equation; units of measure are mL/min/1.73 m2. Results are only valid for adults (>=18 years) whose serum creatinine is in a steady state. eGFR calculation s are not valid for patients with acute kidney injury and for patients on dialysis. Creatinine- based estimates of kidney function may also be inaccurate in patients with reduced creatinine generation due to decreased muscle mass (e.g., malnutritio n, severe hypoalbumin emia, sarcopenia, chronic neuromuscul ar disease, amputations , severe heart failure or liver disease) and in patients with increased creatinine generation due to increased muscle mass (e.g., muscle builders, anabolic steroids) or increased dietary intake. As drug clearance is proportiona l to total GFR and not GFR indexed to body surface area (BSA), in individuals with a BSA substantial ly different than 1.73 m2, drug dosing should be based on the reported eGFR value de-indexed from BSA by multiplying by the individual' s BSA and dividing by 1.73. CKD is diagnosed based on abnormaliti es of kidney structure or function, present for >3 months, with implication s for health and disease. CKD is classified and staged based on cause, eGFR and albuminuria (quantified as urine albumin to creatinine ratio). An eGFR >60 mL/min/1.73 m2 in the absence of increased urine albumin excretion or structural abnormaliti es does not represent CKD. eGFR CKD Interpretat ion (mL/min/1.7 3 m2) stage >=90 G1 Normal 60-89 G2 Mild decrease 45-59 G3A Mild to moderate decrease 30-44 G3B Moderate to severe decrease 15-29 G4 Severe decrease <15 G5 Kidney failure Ordering Provider: GRANT CROSS Report Released Date/Time: Oct 22, 2023 01:10 PM Reporting Lab: [facility] [address] [address] Performing Lab: [facility] [address] [address] [facility] PANEL 5 CARBON DIOXIDE, TOTAL [MOLES/VOL UME] IN SERUM OR PLASMA 22 mmol/L - 10/21 Specimen Type: PLASMA Comment: Estimated Glomerular Filtration Rate (eGFR) calculated using the 2020 Chronic Kidney Disease-Epi demiology (CKD-EPI) Collaborati on creatinine equation; units of measure are mL/min/1.73 m2. Results are only valid for adults (>=18 years) whose serum creatinine is in a steady state. eGFR calculation s are not valid for patients with acute kidney injury and for patients on dialysis. Creatinine- based estimates of kidney function may also be inaccurate in patients with reduced creatinine generation due to decreased muscle mass (e.g., malnutritio n, severe hypoalbumin emia, sarcopenia, chronic neuromuscul ar disease, amputations , severe heart failure or liver disease) and in patients with increased creatinine generation due to increased muscle mass (e.g., muscle builders, anabolic steroids) or increased dietary intake. As drug clearance is proportiona l to total GFR and not GFR indexed to body surface area (BSA), in individuals with a BSA substantial ly different than 1.73 m2, drug dosing should be based on the reported eGFR value de-indexed from BSA by multiplying by the individual' s BSA and dividing by 1.73. CKD is diagnosed based on abnormaliti es of kidney structure or function, present for >3 months, with implication s for health and disease. CKD is classified and staged based on cause, eGFR and albuminuria (quantified as urine albumin to creatinine ratio). An eGFR >60 mL/min/1.73 m2 in the absence of increased urine albumin excretion or structural abnormaliti es does not represent CKD. eGFR CKD Interpretat ion (mL/min/1.7 3 m2) stage >=90 G1 Normal 60-89 G2 Mild decrease 45-59 G3A Mild to moderate decrease 30-44 G3B Moderate to severe decrease 15-29 G4 Severe decrease <15 G5 Kidney failure Ordering Provider: GRANT CROSS Report Released Date/Time: Oct 22, 2023 01:10 PM Reporting Lab: [facility] [address] [address] Performing Lab: [facility] [address] [address] [facility] PANEL 5 CALCIUM [MASS/VOLU ME] IN SERUM OR PLASMA 9.2 mg/dL 8.4 - 10.2 10/21 Specimen Type: PLASMA Comment: Estimated Glomerular Filtration Rate (eGFR) calculated using the 2020 Chronic Kidney Disease-Epi demiology (CKD-EPI) Collaborati on creatinine equation; units of measure are mL/min/1.73 m2. Results are only valid for adults (>=18 years) whose serum creatinine is in a steady state. eGFR calculation s are not valid for patients with acute kidney injury and for patients on dialysis. Creatinine- based estimates of kidney function may also be inaccurate in patients with reduced creatinine generation due to decreased muscle mass (e.g., malnutritio n, severe hypoalbumin emia, sarcopenia, chronic neuromuscul ar disease, amputations , severe heart failure or liver disease) and in patients with increased creatinine generation due to increased muscle mass (e.g., muscle builders, anabolic steroids) or increased dietary intake. As drug clearance is proportiona l to total GFR and not GFR indexed to body surface area (BSA), in individuals with a BSA substantial ly different than 1.73 m2, drug dosing should be based on the reported eGFR value de-indexed from BSA by multiplying by the individual' s BSA and dividing by 1.73. CKD is diagnosed based on abnormaliti es of kidney structure or function, present for >3 months, with implication s for health and disease. CKD is classified and staged based on cause, eGFR and albuminuria (quantified as urine albumin to creatinine ratio). An eGFR >60 mL/min/1.73 m2 in the absence of increased urine albumin excretion or structural abnormaliti es does not represent CKD. eGFR CKD Interpretat ion (mL/min/1.7 3 m2) stage >=90 G1 Normal 60-89 G2 Mild decrease 45-59 G3A Mild to moderate decrease 30-44 G3B Moderate to severe decrease 15-29 G4 Severe decrease <15 G5 Kidney failure Ordering Provider: GRANT CROSS Report Released Date/Time: Oct 22, 2023 01:10 PM Reporting Lab: [facility] [address] [address] Performing Lab: [facility] [address] [address] [facility] PANEL 5 PROTEIN [MASS/VOLU ME] IN SERUM OR PLASMA 8.6 g/dL 6.4 - 8.3 10/21 H Specimen Type: PLASMA Comment: Estimated Glomerular Filtration Rate (eGFR) calculated using the 2021 Chronic Kidney Disease-Epi demiology (CKD-EPI) Collaborati on creatinine equation; units of measure are mL/min/1.73 m2. Results are only valid for adults (>=18 years) whose serum creatinine is in a steady state. eGFR calculation s are not valid for patients with acute kidney injury and for patients on dialysis. Creatinine- based estimates of kidney function may also be inaccurate in patients with reduced creatinine generation due to decreased muscle mass (e.g., malnutritio n, severe hypoalbumin emia, sarcopenia, chronic neuromuscul ar disease, amputations , severe heart failure or liver disease) and in patients with increased creatinine generation due to increased muscle mass (e.g., muscle builders, anabolic steroids) or increased dietary intake. As drug clearance is proportiona l to total GFR and not GFR indexed to body surface area (BSA), in individuals with a BSA substantial ly different than 1.73 m2, drug dosing should be based on the reported eGFR value de-indexed from BSA by multiplying by the individual' s BSA and dividing by 1.73. CKD is diagnosed based on abnormaliti es of kidney structure or function, present for >3 months, with implication s for health and disease. CKD is classified and staged based on cause, eGFR and albuminuria (quantified as urine albumin to creatinine ratio). An eGFR >60 mL/min/1.73 m2 in the absence of increased urine albumin excretion or structural abnormaliti es does not represent CKD. eGFR CKD Interpretat ion (mL/min/1.7 3 m2) stage >=90 G1 Normal 60-89 G2 Mild decrease 45-59 G3A Mild to moderate decrease 30-44 G3B Moderate to severe decrease 15-29 G4 Severe decrease <15 G5 Kidney failure Ordering Provider: GRANT CROSS Report Released Date/Time: Oct 22, 2023 01:10 PM Reporting Lab: [facility] [address] [address] Performing Lab: [facility] [address] [address] [facility] PANEL 5 ALBUMIN [MASS/VOLU ME] IN SERUM OR PLASMA 3.7 g/dL 3.5 - 5.2 10/21 Specimen Type: PLASMA Comment: Estimated Glomerular Filtration Rate (eGFR) calculated using the 2020 Chronic Kidney Disease-Epi demiology (CKD-EPI) Collaborati on creatinine equation; units of measure are mL/min/1.73 m2. Results are only valid for adults (>=18 years) whose serum creatinine is in a steady state. eGFR calculation s are not valid for patients with acute kidney injury and for patients on dialysis. Creatinine- based estimates of kidney function may also be inaccurate in patients with reduced creatinine generation due to decreased muscle mass (e.g., malnutritio n, severe hypoalbumin emia, sarcopenia, chronic neuromuscul ar disease, amputations , severe heart failure or liver disease) and in patients with increased creatinine generation due to increased muscle mass (e.g., muscle builders, anabolic steroids) or increased dietary intake. As drug clearance is proportiona l to total GFR and not GFR indexed to body surface area (BSA), in individuals with a BSA substantial ly different than 1.73 m2, drug dosing should be based on the reported eGFR value de-indexed from BSA by multiplying by the individual' s BSA and dividing by 1.73. CKD is diagnosed based on abnormaliti es of kidney structure or function, present for >3 months, with implication s for health and disease. CKD is classified and staged based on cause, eGFR and albuminuria (quantified as urine albumin to creatinine ratio). An eGFR >60 mL/min/1.73 m2 in the absence of increased urine albumin excretion or structural abnormaliti es does not represent CKD. eGFR CKD Interpretat ion (mL/min/1.7 3 m2) stage >=90 G1 Normal 60-89 G2 Mild decrease 45-59 G3A Mild to moderate decrease 30-44 G3B Moderate to severe decrease 15-29 G4 Severe decrease <15 G5 Kidney failure Ordering Provider: GRANT CROSS Report Released Date/Time: Oct 22, 2023 01:10 PM Reporting Lab: [facility] [address] [facility] [address] Performing Lab: [facility] [address] [facility] [address] [facility] PANEL 5 BILIRUBIN. TOTAL [MASS/VOLU ME] IN SERUM OR PLASMA 0.4 mg/dL 0.2 - 1.2 10/21 Specimen Type: PLASMA Comment: Estimated Glomerular Filtration Rate (eGFR) calculated using the 2020 Chronic Kidney Disease-Epi demiology (CKD-EPI) Collaborati on creatinine equation; units of measure are mL/min/1.73 m2. Results are only valid for adults (>=18 years) whose serum creatinine is in a steady state. eGFR calculation s are not valid for patients with acute kidney injury and for patients on dialysis. Creatinine- based estimates of kidney function may also be inaccurate in patients with reduced creatinine generation due to decreased muscle mass (e.g., malnutritio n, severe hypoalbumin emia, sarcopenia, chronic neuromuscul ar disease, amputations , severe heart failure or liver disease) and in patients with increased creatinine generation due to increased muscle mass (e.g., muscle builders, anabolic steroids) or increased dietary intake. As drug clearance is proportiona l to total GFR and not GFR indexed to body surface area (BSA), in individuals with a BSA substantial ly different than 1.73 m2, drug dosing should be based on the reported eGFR value de-indexed from BSA by multiplying by the individual' s BSA and dividing by 1.73. CKD is diagnosed based on abnormaliti es of kidney structure or function, present for >3 months, with implication s for health and disease. CKD is classified and staged based on cause, eGFR and albuminuria (quantified as urine albumin to creatinine ratio). An eGFR >60 mL/min/1.73 m2 in the absence of increased urine albumin excretion or structural abnormaliti es does not represent CKD. eGFR CKD Interpretat ion (mL/min/1.7 3 m2) stage >=90 G1 Normal 60-89 G2 Mild decrease 45-59 G3A Mild to moderate decrease 30-44 G3B Moderate to severe decrease 15-29 G4 Severe decrease <15 G5 Kidney failure Ordering Provider: GRANT CROSS Report Released Date/Time: Oct 22, 2023 01:10 PM Reporting Lab: [facility] [address] [facility] [address] Performing Lab: [facility] [address] [facility] [address] [facility] PANEL 5 ASPARTATE AMINOTRANS FERASE [ENZYMATIC ACTIVITY/V OLUME] IN SERUM OR PLASMA 22 U/L 5 - 34 10/21 Specimen Type: PLASMA Comment: Estimated Glomerular Filtration Rate (eGFR) calculated using the 2020 Chronic Kidney Disease-Epi demiology (CKD-EPI) Collaborati on creatinine equation; units of measure are mL/min/1.73 m2. Results are only valid for adults (>=18 years) whose serum creatinine is in a steady state. eGFR calculation s are not valid for patients with acute kidney injury and for patients on dialysis. Creatinine- based estimates of kidney function may also be inaccurate in patients with reduced creatinine generation due to decreased muscle mass (e.g., malnutritio n, severe hypoalbumin emia, sarcopenia, chronic neuromuscul ar disease, amputations , severe heart failure or liver disease) and in patients with increased creatinine generation due to increased muscle mass (e.g., muscle builders, anabolic steroids) or increased dietary intake. As drug clearance is proportiona l to total GFR and not GFR indexed to body surface area (BSA), in individuals with a BSA substantial ly different than 1.73 m2, drug dosing should be based on the reported eGFR value de-indexed from BSA by multiplying by the individual' s BSA and dividing by 1.73. CKD is diagnosed based on abnormaliti es of kidney structure or function, present for >3 months, with implication s for health and disease. CKD is classified and staged based on cause, eGFR and albuminuria (quantified as urine albumin to creatinine ratio). An eGFR >60 mL/min/1.73 m2 in the absence of increased urine albumin excretion or structural abnormaliti es does not represent CKD. eGFR CKD Interpretat ion (mL/min/1.7 3 m2) stage >=90 G1 Normal 60-89 G2 Mild decrease 45-59 G3A Mild to moderate decrease 30-44 G3B Moderate to severe decrease 15-29 G4 Severe decrease <15 G5 Kidney failure Ordering Provider: GRANT CROSS Report Released Date/Time: Oct 22, 2023 01:10 PM Reporting Lab: [facility] [address] [address] Performing Lab: [facility] [address] [address] [facility] PANEL 5 ALANINE AMINOTRANS FERASE [ENZYMATIC ACTIVITY/V OLUME] IN SERUM OR PLASMA 19 U/L 0 - 55 10/21 Specimen Type: PLASMA Comment: Estimated Glomerular Filtration Rate (eGFR) calculated using the 2020 Chronic Kidney Disease-Epi demiology (CKD-EPI) Collaborati on creatinine equation; units of measure are mL/min/1.73 m2. Results are only valid for adults (>=18 years) whose serum creatinine is in a steady state. eGFR calculation s are not valid for patients with acute kidney injury and for patients on dialysis. Creatinine- based estimates of kidney function may also be inaccurate in patients with reduced creatinine generation due to decreased muscle mass (e.g., malnutritio n, severe hypoalbumin emia, sarcopenia, chronic neuromuscul ar disease, amputations , severe heart failure or liver disease) and in patients with increased creatinine generation due to increased muscle mass (e.g., muscle builders, anabolic steroids) or increased dietary intake. As drug clearance is proportiona l to total GFR and not GFR indexed to body surface area (BSA), in individuals with a BSA substantial ly different than 1.73 m2, drug dosing should be based on the reported eGFR value de-indexed from BSA by multiplying by the individual' s BSA and dividing by 1.73. CKD is diagnosed based on abnormaliti es of kidney structure or function, present for >3 months, with implication s for health and disease. CKD is classified and staged based on cause, eGFR and albuminuria (quantified as urine albumin to creatinine ratio). An eGFR >60 mL/min/1.73 m2 in the absence of increased urine albumin excretion or structural abnormaliti es does not represent CKD. eGFR CKD Interpretat ion (mL/min/1.7 3 m2) stage >=90 G1 Normal 60-89 G2 Mild decrease 45-59 G3A Mild to moderate decrease 30-44 G3B Moderate to severe decrease 15-29 G4 Severe decrease <15 G5 Kidney failure Ordering Provider: GRANT CROSS Report Released Date/Time: Oct 22, 2023 01:10 PM Reporting Lab: [place] [address] [address] Performing Lab: [place] [address] [facility] PANEL 5 ANION GAP 3 IN SERUM OR PLASMA 10 meq/L 3 - 19 10/21 Specimen Type: PLASMA Comment: Estimated Glomerular Filtration Rate (eGFR) calculated using the 2020 Chronic Kidney Disease-Epi demiology (CKD-EPI) Collaborati on creatinine equation; units of measure are mL/min/1.73 m2. Results are only valid for adults (>=18 years) whose serum creatinine is in a steady state. eGFR calculation s are not valid for patients with acute kidney injury and for patients on dialysis. Creatinine- based estimates of kidney function may also be inaccurate in patients with reduced creatinine generation due to decreased muscle mass (e.g., malnutritio n, severe hypoalbumin emia, sarcopenia, chronic neuromuscul ar disease, amputations , severe heart failure or liver disease) and in patients with increased creatinine generation due to increased muscle mass (e.g., muscle builders, anabolic steroids) or increased dietary intake. As drug clearance is proportiona l to total GFR and not GFR indexed to body surface area (BSA), in individuals with a BSA substantial ly different than 1.73 m2, drug dosing should be based on the reported eGFR value de-indexed from BSA by multiplying by the individual' s BSA and dividing by 1.73. CKD is diagnosed based on abnormaliti es of kidney structure or function, present for >3 months, with implication s for health and disease. CKD is classified and staged based on cause, eGFR and albuminuria (quantified as urine albumin to creatinine ratio). An eGFR >60 mL/min/1.73 m2 in the absence of increased urine albumin excretion or structural abnormaliti es does not represent CKD. eGFR CKD Interpretat ion (mL/min/1.7 3 m2) stage >=90 G1 Normal 60-89 G2 Mild decrease 45-59 G3A Mild to moderate decrease 30-44 G3B Moderate to severe decrease 15-29 G4 Severe decrease <15 G5 Kidney failure Ordering Provider: GRANT CROSS Report Released Date/Time: Oct 22, 2023 01:10 PM Reporting Lab: [facility] [address] [address] Performing Lab: [facility] [address] [address] [facility] PANEL 5 ALKALINE PHOSPHATAS E [ENZYMATIC ACTIVITY/V OLUME] IN SERUM OR PLASMA 111 U/L 40 - 150 10/21 Specimen Type: PLASMA Comment: Estimated Glomerular Filtration Rate (eGFR) calculated using the 2020 Chronic Kidney Disease-Epi demiology (CKD-EPI) Collaborati on creatinine equation; units of measure are mL/min/1.73 m2. Results are only valid for adults (>=18 years) whose serum creatinine is in a steady state. eGFR calculation s are not valid for patients with acute kidney injury and for patients on dialysis. Creatinine- based estimates of kidney function may also be inaccurate in patients with reduced creatinine generation due to decreased muscle mass (e.g., malnutritio n, severe hypoalbumin emia, sarcopenia, chronic neuromuscul ar disease, amputations , severe heart failure or liver disease) and in patients with increased creatinine generation due to increased muscle mass (e.g., muscle builders, anabolic steroids) or increased dietary intake. As drug clearance is proportiona l to total GFR and not GFR indexed to body surface area (BSA), in individuals with a BSA substantial ly different than 1.73 m2, drug dosing should be based on the reported eGFR value de-indexed from BSA by multiplying by the individual' s BSA and dividing by 1.73. CKD is diagnosed based on abnormaliti es of kidney structure or function, present for >3 months, with implication s for health and disease. CKD is classified and staged based on cause, eGFR and albuminuria (quantified as urine albumin to creatinine ratio). An eGFR >60 mL/min/1.73 m2 in the absence of increased urine albumin excretion or structural abnormaliti es does not represent CKD. eGFR CKD Interpretat ion (mL/min/1.7 3 m2) stage >=90 G1 Normal 60-89 G2 Mild decrease 45-59 G3A Mild to moderate decrease 30-44 G3B Moderate to severe decrease 15-29 G4 Severe decrease <15 G5 Kidney failure Ordering Provider: GRANT CROSS Report Released Date/Time: Oct 22, 2023 01:10 PM Reporting Lab: [facility] [address] [address] Performing Lab: [facility] [address] [address] [facility] PANEL 5 GLOMERULAR FILTRATION RATE/1.73 SQ M.PREDICTE D [VOLUME RATE/AREA] IN SERUM, PLASMA OR BLOOD BY CREATININE -BASED FORMULA (CKD-EPI 2020) 51 10/21 Specimen Type: PLASMA Comment: Estimated Glomerular Filtration Rate (eGFR) calculated using the 2020 Chronic Kidney Disease-Epi demiology (CKD-EPI) Collaborati on creatinine equation; units of measure are mL/min/1.73 m2. Results are only valid for adults (>=18 years) whose serum creatinine is in a steady state. eGFR calculation s are not valid for patients with acute kidney injury and for patients on dialysis. Creatinine- based estimates of kidney function may also be inaccurate in patients with reduced creatinine generation due to decreased muscle mass (e.g., malnutritio n, severe hypoalbumin emia, sarcopenia, chronic neuromuscul ar disease, amputations , severe heart failure or liver disease) and in patients with increased creatinine generation due to increased muscle mass (e.g., muscle builders, anabolic steroids) or increased dietary intake. As drug clearance is proportiona l to total GFR and not GFR indexed to body surface area (BSA), in individuals with a BSA substantial ly different than 1.73 m2, drug dosing should be based on the reported eGFR value de-indexed from BSA by multiplying by the individual' s BSA and dividing by 1.73. CKD is diagnosed based on abnormaliti es of kidney structure or function, present for >3 months, with implication s for health and disease. CKD is classified and staged based on cause, eGFR and albuminuria (quantified as urine albumin to creatinine ratio). An eGFR >60 mL/min/1.73 m2 in the absence of increased urine albumin excretion or structural abnormaliti es does not represent CKD. eGFR CKD Interpretat ion (mL/min/1.7 3 m2) stage >=90 G1 Normal 60-89 G2 Mild decrease 45-59 G3A Mild to moderate decrease 30-44 G3B Moderate to severe decrease 15-29 G4 Severe decrease <15 G5 Kidney failure Ordering Provider: GRANT CROSS Report Released Date/Time: Oct 22, 2023 01:10 PM Reporting Lab: [facility] [address] [address] Performing Lab: [facility] [address] [address] [facility] LIPID PROFILE CHOLESTERO L [MASS/VOLU ME] IN SERUM OR PLASMA 127 mg/dL 0 - 199 10/21 Specimen Type: PLASMA Comment: Estimated Glomerular Filtration Rate (eGFR) calculated using the 2020 Chronic Kidney Disease-Epi demiology (CKD-EPI) Collaborati on creatinine equation; units of measure are mL/min/1.73 m2. Results are only valid for adults (>=18 years) whose serum creatinine is in a steady state. eGFR calculation s are not valid for patients with acute kidney injury and for patients on dialysis. Creatinine- based estimates of kidney function may also be inaccurate in patients with reduced creatinine generation due to decreased muscle mass (e.g., malnutritio n, severe hypoalbumin emia, sarcopenia, chronic neuromuscul ar disease, amputations , severe heart failure or liver disease) and in patients with increased creatinine generation due to increased muscle mass (e.g., muscle builders, anabolic steroids) or increased dietary intake. As drug clearance is proportiona l to total GFR and not GFR indexed to body surface area (BSA), in individuals with a BSA substantial ly different than 1.73 m2, drug dosing should be based on the reported eGFR value de-indexed from BSA by multiplying by the individual' s BSA and dividing by 1.73. CKD is diagnosed based on abnormaliti es of kidney structure or function, present for >3 months, with implication s for health and disease. CKD is classified and staged based on cause, eGFR and albuminuria (quantified as urine albumin to creatinine ratio). An eGFR >60 mL/min/1.73 m2 in the absence of increased urine albumin excretion or structural abnormaliti es does not represent CKD. eGFR CKD Interpretat ion (mL/min/1.7 3 m2) stage >=90 G1 Normal 60-89 G2 Mild decrease 45-59 G3A Mild to moderate decrease 30-44 G3B Moderate to severe decrease 15-29 G4 Severe decrease <15 G5 Kidney failure Ordering Provider: GRANT CROSS Report Released Date/Time: Oct 22, 2023 01:10 PM Reporting Lab: [facility] [address] [address] Performing Lab: [facility] [address] [address] [facility] LIPID PROFILE TRIGLYCERI DE [MASS/VOLU ME] IN SERUM OR PLASMA 100 mg/dL 0 - 149 10/21 Specimen Type: PLASMA Comment: Estimated Glomerular Filtration Rate (eGFR) calculated using the 2020 Chronic Kidney Disease-Epi demiology (CKD-EPI) Collaborati on creatinine equation; units of measure are mL/min/1.73 m2. Results are only valid for adults (>=18 years) whose serum creatinine is in a steady state. eGFR calculation s are not valid for patients with acute kidney injury and for patients on dialysis. Creatinine- based estimates of kidney function may also be inaccurate in patients with reduced creatinine generation due to decreased muscle mass (e.g., malnutritio n, severe hypoalbumin emia, sarcopenia, chronic neuromuscul ar disease, amputations , severe heart failure or liver disease) and in patients with increased creatinine generation due to increased muscle mass (e.g., muscle builders, anabolic steroids) or increased dietary intake. As drug clearance is proportiona l to total GFR and not GFR indexed to body surface area (BSA), in individuals with a BSA substantial ly different than 1.73 m2, drug dosing should be based on the reported eGFR value de-indexed from BSA by multiplying by the individual' s BSA and dividing by 1.73. CKD is diagnosed based on abnormaliti es of kidney structure or function, present for >3 months, with implication s for health and disease. CKD is classified and staged based on cause, eGFR and albuminuria (quantified as urine albumin to creatinine ratio). An eGFR >60 mL/min/1.73 m2 in the absence of increased urine albumin excretion or structural abnormaliti es does not represent CKD. eGFR CKD Interpretat ion (mL/min/1.7 3 m2) stage >=90 G1 Normal 60-89 G2 Mild decrease 45-59 G3A Mild to moderate decrease 30-44 G3B Moderate to severe decrease 15-29 G4 Severe decrease <15 G5 Kidney failure Ordering Provider: GRANT CROSS Report Released Date/Time: Oct 22, 2023 01:10 PM Reporting Lab: [facility] [address] [address] Performing Lab: [facility] [address] [address] [facility] LIPID PROFILE CHOLESTERO L IN HDL [MASS/VOLU ME] IN SERUM OR PLASMA 36 mg/dL 40 - 69 10/21 L Specimen Type: PLASMA Comment: Estimated Glomerular Filtration Rate (eGFR) calculated using the 2020 Chronic Kidney Disease-Epi demiology (CKD-EPI) Collaborati on creatinine equation; units of measure are mL/min/1.73 m2. Results are only valid for adults (>=18 years) whose serum creatinine is in a steady state. eGFR calculation s are not valid for patients with acute kidney injury and for patients on dialysis. Creatinine- based estimates of kidney function may also be inaccurate in patients with reduced creatinine generation due to decreased muscle mass (e.g., malnutritio n, severe hypoalbumin emia, sarcopenia, chronic neuromuscul ar disease, amputations , severe heart failure or liver disease) and in patients with increased creatinine generation due to increased muscle mass (e.g., muscle builders, anabolic steroids) or increased dietary intake. As drug clearance is proportiona l to total GFR and not GFR indexed to body surface area (BSA), in individuals with a BSA substantial ly different than 1.73 m2, drug dosing should be based on the reported eGFR value de-indexed from BSA by multiplying by the individual' s BSA and dividing by 1.73. CKD is diagnosed based on abnormaliti es of kidney structure or function, present for >3 months, with implication s for health and disease. CKD is classified and staged based on cause, eGFR and albuminuria (quantified as urine albumin to creatinine ratio). An eGFR >60 mL/min/1.73 m2 in the absence of increased urine albumin excretion or structural abnormaliti es does not represent CKD. eGFR CKD Interpretat ion (mL/min/1.7 3 m2) stage >=90 G1 Normal 60-89 G2 Mild decrease 45-59 G3A Mild to moderate decrease 30-44 G3B Moderate to severe decrease 15-29 G4 Severe decrease <15 G5 Kidney failure Ordering Provider: GRANT CROSS Report Released Date/Time: Oct 22, 2023 01:10 PM Reporting Lab: [facility] [address] [address] Performing Lab: [facility] [address] [address] [facility] LIPID PROFILE CHOLESTERO L IN LDL [MASS/VOLU ME] IN SERUM OR PLASMA BY DIRECT ASSAY 83 mg/dL 0 - 100 10/21 Specimen Type: PLASMA Comment: Estimated Glomerular Filtration Rate (eGFR) calculated using the 2020 Chronic Kidney Disease-Epi demiology (CKD-EPI) Collaborati on creatinine equation; units of measure are mL/min/1.73 m2. Results are only valid for adults (>=18 years) whose serum creatinine is in a steady state. eGFR calculation s are not valid for patients with acute kidney injury and for patients on dialysis. Creatinine- based estimates of kidney function may also be inaccurate in patients with reduced creatinine generation due to decreased muscle mass (e.g., malnutritio n, severe hypoalbumin emia, sarcopenia, chronic neuromuscul ar disease, amputations , severe heart failure or liver disease) and in patients with increased creatinine generation due to increased muscle mass (e.g., muscle builders, anabolic steroids) or increased dietary intake. As drug clearance is proportiona l to total GFR and not GFR indexed to body surface area (BSA), in individuals with a BSA substantial ly different than 1.73 m2, drug dosing should be based on the reported eGFR value de-indexed from BSA by multiplying by the individual' s BSA and dividing by 1.73. CKD is diagnosed based on abnormaliti es of kidney structure or function, present for >3 months, with implication s for health and disease. CKD is classified and staged based on cause, eGFR and albuminuria (quantified as urine albumin to creatinine ratio). An eGFR >60 mL/min/1.73 m2 in the absence of increased urine albumin excretion or structural abnormaliti es does not represent CKD. eGFR CKD Interpretat ion (mL/min/1.7 3 m2) stage >=90 G1 Normal 60-89 G2 Mild decrease 45-59 G3A Mild to moderate decrease 30-44 G3B Moderate to severe decrease 15-29 G4 Severe decrease <15 G5 Kidney failure Ordering Provider: GRANT CROSS Report Released Date/Time: Oct 22, 2023 01:10 PM Reporting Lab: [facility] [address] [address] Performing Lab: [facility] [address] [address] [facility] Vital Signs Combined list of inpatient and outpatient Vital Signs from [facility] and [facility], ranging from 12 months to all on record, depending upon the facility. Vital Sign Value Date Comments Source SYSTOLIC BLOOD PRESSURE 137 10/22/2023 13:04:27 [facility] DIASTOLIC BLOOD PRESSURE 71 10/22/2023 13:04:27 [facility] WEIGHT 171.4 10/22/2023 13:04:27 [facility] BMI 28 kg/m2 10/22/2023 13:04:27 [facility] PAIN 0 10/22/2023 13:04:27 [facility] TEMPERATURE 96.3 10/22/2023 13:04:27 YUNBenedicto [facility] PULSE 59 10/22/2023 13:04:27 [facility] Encounters Combined list of: 1) Encounters from Department of [facility] facilities going backup to the last 18 months, not all [place] inpatient encounters are included; 2) Encounters from the Department of [facility] facilities going backup to 280 months. Location Location Details Encounter Type Encounter Number Reason For Visit Attending Provider ADM Date DC Date Status Disposition Source [facility] Outpatient Encounter [id number] 05/31 [place] [facility] HC PRO PHONE CALL 5-10 MIN [id number] Diagnos is: ICD-10- CM Z71.89 Other specifi ed counseling services manager ME RAYMON Flores 06/21 [place] [facility] Outpatient Encounter [id number] 09/01 [place] [facility] Outpatient Encounter [id number] 09/16 [place] [facility]P EST MOD 30 MIN [id number] Diagnos is: ICD-10- CM I10 Essenti al (primar y) hyperte nsGRANT Mann 10/21 [place] [facility] HC PRO PHONE CALL 5-10 MIN [id number] Diagnos is: ICD-10- CM Z71.89 Other specifi ed counseling services manager ME RAYMON Flores 10/22 [place] [facility] HC PRO PHONE CALL 5-10 MIN [id number] Diagnos is: ICD-10- CM Z71.89 Other specifi ed counseling services manager ME RAYMON Flores 10/24 [place] [facility] OFFICE O/P NEW SF 15 MIN [id number] Diagnos is: ICD-10- CM 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 LYNN Lenz 10/24 [place] HC PRO PHONE CALL 5-10 MIN [id number] Diagnos is: ICD-10- CM Z71.89 Other specifi ed counseling services manager ME RAYMON Flores 11/04 [place] [facility] OFF/OP EST OCTOBER X REQ PHY/QHP [id number] Diagnos is: ICD-10- CM Z71.89 Other specifi ed counseling services manager ya MEYERAND NILO F 11/13 [place] [facility] Outpatient Encounter [id number] 09/16 [place] Social History Combined list of available smoking, tobacco, and other social history from [facility] Defense and [facility] facilities. Social History Type Response Date Comment Sourc e Tobacco smoking status NHIS [facility]-TOBACCO FORMER USER 10/22/2023 [facility] History of tobacco use NC-TOBACCO QUIT 15 YRS OR MORE 10/22/2023 [facility] History of tobacco use VA-TOBACCO QUIT 15 YRS OR MORE 10/19/2022 [facility] History of tobacco use NC-TOBACCO FORMER USER 11/30/2020 [facility]/12/2019 [facility] History of tobacco use NC-TOBACCO FORMER USER 09/18/2018 [facility] History of tobacco use V9 QUIT TOBACCO >7 YEARS AGO 10/29/2016 [facility] History of tobacco use V9 QUIT TOBACCO >7 YEARS AGO 06/03/2015 [facility] History of tobacco use V9 QUIT TOBACCO >7 YEARS AGO 04/24/2013 [facility] History of tobacco use V9 QUIT TOBACCO >7 YEARS AGO 12/13/2011 [facility] History of tobacco use V9 QUIT TOBACCO >7 YEARS AGO 11/30/2010 [facility] Plan of Care List of future care activities from [facility] facilities. Additional future care activities may be listed in the Assessment and Plan section. Date/Time Care Activity Care Activity Detail Facili ty 10/21/2024 AMBULATORY - MEDICINE AMBULATORY - MEDICI NE [facility] Advance Directives List of completed, amended, or rescinded Advance Directives on record at [facility] facilities. An actual copy of the Directive is not included. Date Advance Directive Provider Source 02/01/2012 ADVANCE DIRECTIVE [facility] 01/25/2012 ADVANCE DIRECTIVE DISCUSSION MURIEL ZHANG [facility]
--- OUTSIDE RECORDS SUMMARY | 2024-10-12 09:49 | XMS_ITS | Encounter Summary ---
Author Name [facility] [place] [facility] [place] Address [address] [place] [address] Care Team Providers Care Engineer Third Assistant Name Role Phone MARTIN SINHA Primary Care [...] Name Patient's Relationship to Policy Mag[place] [employer] [facility] (WNR) MEDICARE ADVANTAGE [facility](W NR) Jun 24, 2012 [id number] QUINCY RAFFY PATIENT MEDICARE PART D (WNR) MEDICARE (M) PART D Jun 24, 2012 PART D [id number] ANGELRAFFY GUEVARA PATIENT MEDICARE PART D (WNR) MEDICARE (M) PART D Jun 24, 2012 PART D [id number] RAFFY GRIMES PATIENT Selected Encounter This section includes the information on record at [place] for the Encounter. 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 Date/Time Primary/Secondary Diagnosis Diagnosis Name Provider Source October 25, 2023 10:16 AM PRIMARY Polyclonal hypergammaglobulinemia Elisha PA [facility] Plan of Treatment: Future Appointments (+ 6 months) and Future Tests (+/- 45 days) The Plan of Treatment section includes future care activities for the patient from all [place] treatmentfacilities. This section includes future appointments and future orders which are active, pending or scheduled. Future Appointments This section includes appointments that were scheduled to occur 6 months from the date of the Encounter, up to a maximum of 20 appointments. The data comes from all [place] treatment facilities. Appointment Date/Time Appointment Type Appointme nt Facility Name November 07, 2023 08:00 AM AMBULATORY - NONE [facility] November 07, 2023 04:00 PM AMBULATORY - NONE [facility] Lab Results: +/- 30 days of the encounter This section includes the Chemistry and Hematology Lab Results on record with [place] for the patient. Radiology Reports and Pathology Reports are provided separately, in subsequent sections. Lab Results This section contains the Chemistry/Hematology Results that were resulted 30 days before or 30 daysafter the date of the Encounter. Date/Time Source Result Type Result - Unit Interpretation Reference Range Specimen Type Comment Oct 22, 2023 01:27 PM [facility] HBSAB SERUM Specimen Type: SERUM Comment: FOR HBSAB TESTING: Reactive HBsAb denotes immunity by vaccination or recovery from Hepatitis B infection. Individuals found to be reactive for both HBV Core AB total and HBsAb are immune due to prior natural infection. Individuals found to be nonreactive for HBV Core AB total and reactive for HBsAb (anti-HBs) are immune due to prior immunization. Individuals found to be reactive for HBV Core AB total and nonreactive for HBsAb (anti-HBs) are considered to have a current Hepatitis B infection, either acute or chronic. Individuals found to be nonreactive for both HBV Core AB total and HBsAb are at risk for Hepatitis B infection (HBV) and HBV immunization should be considered. Ordering Provider: AGUSTÍN CROSS Report Released Date/Time: Oct 22, 2023 01:26 PM Reporting Lab: [facility] [address] [facility] [address] Performing Lab: [place] [address] HBSAB Nonreactive Nonreactive Oct 22, 2023 01:25 PM [facility] KAPPA + LAMBDA Lt CHAINS, FREE, Serum SERUM S pecimen Type: SERUM No comment entered. Ordering Provider: GRANT CROSS Report Released Date/Time: Oct 22, 2023 01:10 PM Reporting Lab: [place] [address] Performing Lab: [address] [address] .Free [place] Lt Chains, S 94.9 mg/L H 3.3-1 9.4 .Free Lambda Lt Chains, S 104.0 mg/L H 5.7 -26.3 .[place]/Lambda Ratio, S 0.91 0.26-1.65 Oct 22, 2023 01:25 PM [facility] BOOKER (SERUM) SERUM Specimen Type: SERUM Comment: Results confirmed on dilution. No monoclonality detected. Ordering Provider: GRANT CROSS Report Released Date/Time: Oct 22, 2023 01:10 PM Reporting Lab: [place] [address] Performing Lab: [address] [address] .ALBUMIN ELEC 3.3 g/dL 2.9-4.4 .ALPHA 1 ELEC 0.3 g/dL 0.0-0.4 .ALPHA 2 ELEC 0.9 g/dL 0.4-1.0 .BETA ELEC 1.6 g/dL H 0.7-1.3 .GAMMA ELEC 2.0 g/dL H 0.4-1.8 .IGG (SER-BOOKER) 1677 mg/dL H 603-1613 .IGA (SER-BOOKER) 1347 mg/dL H 61-437 .IGM (SER-BOOKER) 223 mg/dL H 15-143 .TOT SERUM PROT-LC 8.1 g/dL 6.0-8.5 .A/G RATIO SER-BOOKER 0.7 0.7-1.7 .GLOBULIN SER-BOOKER 4.8 g/dL H 2.2-3.9 .M-SPIKE Not Observed g/dL Not Observed .BOOKER INTERPRETATION Comment Oct 22, 2023 01:25 PM [facility] CBC/PLT BLOOD Specimen Type: BLOOD No comment entered. Ordering Provider: GRANT CROSS Report Released Date/Time: Oct 22, 2023 01:10 PM Reporting Lab: [facility] [address] [facility] [address] Performing Lab: [address] [address] WBC 6.5 10*3/uL 5.0-10.0 RBC 4.11 10*6/uL L 4.6-6.2 HGB 13.1 g/dL L 14.0-18.0 HCT 39.7 L 42.0-52.0 MCV 96.6 fL H 80.0-94.0 MCH 31.9 pg H 27.0-31.0 MCHC 33.0 g/dL 32.0-36.0 PLT 218 10*3/uL 150-450 MPV 10.1 fL 9.0-13.1 RDW 13.2 11.0-16.0 NRBC 0.0 0.0-0.0 Oct 22, 2023 01:25 PM [facility] PANEL 5 PLASMA Specimen Type: PLASM A Comment: Estimated Glomerular Filtration Rate (eGFR) calculated using the 2020 Chronic Kidney Disease-Epidemiology (CKD-EPI) Collaboration creatinine equation; units of measure are mL/min/1.73 m2. Results are only valid for adults (>=18 years) whose serum creatinine is in a steady state. eGFR calculations are not valid for patients with acute kidney injury and for patients on dialysis. Creatinine-based estimates of kidney function may also be inaccurate in patients with reduced creatinine generation due to decreased muscle mass (e.g., malnutrition, severe hypoalbuminemia, sarcopenia, chronic neuromuscular disease, amputations, severe heart failure or liver disease) and in patients with increased creatinine generation due to increased muscle mass (e.g., muscle builders, anabolic steroids) or increased dietary intake. As drug clearance is proportional to total GFR and not GFR indexed to body surface area (BSA), in individuals with a BSA substantially different than 1.73 m2, drug dosing should be based on the reported eGFR value de-indexed from BSA by multiplying by the individual's BSA and dividing by 1.73. CKD is diagnosed based on abnormalities of kidney structure or function, present for >3 months, with implications for health and disease. CKD is classified and staged based on cause, eGFR and albuminuria (quantified as urine albumin to creatinine ratio). An eGFR >60 mL/min/1.73 m2 in the absence of increased urine albumin excretion or structural abnormalities does not represent CKD. eGFR CKD Interpretation (mL/min/1.73 m2) stage >=90 G1 Normal 60-89 G2 Mild decrease 45-59 G3A Mild to moderate decrease 30-44 G3B Moderate to severe decrease 15-29 G4 Severe decrease <15 G5 Kidney failure Ordering Provider: GRANT CROSS Report Released Date/Time: Oct 22, 2023 01:10 PM Reporting Lab: [address] [address] Performing Lab: [address] [address] CREATININE 1.42 mg/dL H 0.72-1.25 UREA NITROGEN 17 mg/dL 9-25 GLUCOSE 170 mg/dL H 74-100 SODIUM 137 mmol/L 136-145 POTASSIUM 4.2 mmol/L 3.5-5.1 CHLORIDE 105 mmol/L 98-107 CO2 22 mmol/L 22-29 CALCIUM 9.2 mg/dL 8.4-10.2 TOTAL PROTEIN 8.6 g/dL H 6.4-8.3 ALBUMIN 3.7 g/dL 3.5-5.2 TOTAL BILIRUBIN 0.4 mg/dL 0.2-1.2 AST 22 U/L 5-34 ALT 19 U/L 0-55 ANION GAP 10 meq/L 3-19 ALK PHOS 111 U/L 40-150 eGFR (CKD-EPI) 51 Oct 22, 2023 01:25 PM [facility] LIPID PROFILE PLASMA Specimen Type: PLASM A Comment: Estimated Glomerular Filtration Rate (eGFR) calculated using the 2020 Chronic Kidney Disease-Epidemiology (CKD-EPI) Collaboration creatinine equation; units of measure are mL/min/1.73 m2. Results are only valid for adults (>=18 years) whose serum creatinine is in a steady state. eGFR calculations are not valid for patients with acute kidney injury and for patients on dialysis. Creatinine-based estimates of kidney function may also be inaccurate in patients with reduced creatinine generation due to decreased muscle mass (e.g., malnutrition, severe hypoalbuminemia, sarcopenia, chronic neuromuscular disease, amputations, severe heart failure or liver disease) and in patients with increased creatinine generation due to increased muscle mass (e.g., muscle builders, anabolic steroids) or increased dietary intake. As drug clearance is proportional to total GFR and not GFR indexed to body surface area (BSA), in individuals with a BSA substantially different than 1.73 m2, drug dosing should be based on the reported eGFR value de-indexed from BSA by multiplying by the individual's BSA and dividing by 1.73. CKD is diagnosed based on abnormalities of kidney structure or function, present for >3 months, with implications for health and disease. CKD is classified and staged based on cause, eGFR and albuminuria (quantified as urine albumin to creatinine ratio). An eGFR >60 mL/min/1.73 m2 in the absence of increased urine albumin excretion or structural abnormalities does not represent CKD. eGFR CKD Interpretation (mL/min/1.73 m2) stage >=90 G1 Normal 60-89 G2 Mild decrease 45-59 G3A Mild to moderate decrease 30-44 G3B Moderate to severe decrease 15-29 G4 Severe decrease <15 G5 Kidney failure Ordering Provider: GRANT CROSS Report Released Date/Time: Oct 22, 2023 01:10 PM Reporting Lab: [facility] [address] [address] Performing Lab: [facility] [address] [address] CHOLESTEROL 127 mg/dL 0-199 TRIGLYCERIDE 100 mg/dL 0-149 HDL CHOLESTEROL 36 mg/dL L 40-69 DIRECT LDL CHOL. 83 mg/dL 0-100 Advance Directives: All historical and current Section Date Range: From patient's date of to the date document was created. This section includes ALL of a patient's completed or amended [place] Advance and Rescinded Directives. The entries below indicate that a directive exists for the patient, but an actual copy is not included with this document. The data comes from all [place] facilities. Date Advance Directives Provider Source Feb 01, 2012 ADVANCE DIRECTIVE NEREYDATURNERPAULINE Brayden [facility] Jan 25, 2012 ADVANCE DIRECTIVE DISCUSSION LEATHAMURIEL Godinez [facility] Radiology Reports: +/- 30 days of the encounter Radiology Reports For cases when an order for radiology services may have been completed prior to the date of the Encounter, the report list includes the Radiology Reports that were completed up to 30 days before dateof the Encounter. For cases when an order for radiology services may have been completed after the date of the Encounter, the report list also includes the Radiology Reports that were completed up to30 days after date of the Encounter. The data comes from all [place] treatment facilities. Date/Time Radiology Report Provider Source November 07, 2023 07:33 AM U/S KIDNEYS: RAFFY GRIMES [id number] -[id number] M Exm Date: NOVEMBER 07, 2023@07:33 Req Phys: GRANT CROSS Pat Loc: [facility] ANNIE 16-2 (Req'g Loc Img Loc: ULTRASOUND Service: [place] [address] (Case [id number] COMPLETE)U/S KIDNEYS (US Detailed) CPT:16218 Reason for Study: SEE CLINICAL HISTORY:CRF Clinical History: REASON FOR EXAM: Chronic Renal Failure PERTINENT PATIENT HISTORY: eGFR 51. PROVIDER [id number] Report Status: Verified Date Reported: NOVEMBER 07, 2023 Date Verified: NOVEMBER 07, 2023 Exam Proctor E-Sig: Report: Exam: Renal ultrasound Date: November 07, 2023 History:Chronic renal failure Comparison:No similar exam for comparison Findings: 9.6 x 7.8 cm benign cyst involving the left kidney. No hydronephrosis or nephrolithiasis involving either kidney. The right kidney length measures 10.9 cm and the left kidney length measures 11.2 cm. Single image of the bladder is unremarkable. Impression: 9.6 x 7.8 cm benign cyst involving the left kidney. Bilateral kidneys demonstrate no hydronephrosis or nephrolithiasis. Primary Diagnostic Code: NO ALERT REQUIRED Primary Interpreting Staff: LION GOMEZ, Diagnostic and Interventional Radiologist Verified by payroll professional for [facility] PATRIC[place] [facility] [facility] November 07, 2023 07:33 AM U/S LIVER: RAFFY GRIMES [id number] M Exm Date: NOVEMBER 07, 2023@07:33 Req Phys: GRANT CROSS Pat Loc: [facility] HEM ONC ATT 1 (Req'g L Img Loc: ULTRASOUND Service: Unknown [place] [id number] (Case [id number] COMPLETE)U/S LIVER (US Detailed) CPT:82022 Reason for Study: SEE CLINICAL HISTORY:Polyclonal Gammopathy. R/O Liver disease. Clinical History: REASON FOR EXAM: Other (provide detailed justification for request) PERTINENT PATIENT HISTORY: Polyclonal Gammopathy. ?Liver disease. PROVIDER [id number]# Report Status: Verified Date Reported: NOVEMBER 07, 2023 Date Verified: NOVEMBER 07, 2023 Exam Proctor E-Sig: Report: Exam: Liver ultrasound. Date: November 07, 2023 History:Probably gammopathy. Comparison:No similar exam for comparison. Findings: Medical hepatic parenchymal disease. No liver mass. The main portal vein and common bile duct are unremarkable. The common bile duct measures 0.3 cm. There is no free fluid. Impression: Medical hepatic parenchymal disease. No liver mass. Common bile duct is normal measuring 0.3 cm. Primary Diagnostic Code: NO ALERT REQUIRED Primary Interpreting Staff: LION GOMEZ Diagnostic and Interventional Radiologist Verified by payroll professional for [facility] [facility] Encounter Notes: All associated encounter notes This section contains the clinical notes associated to the Encounter. Date/Time Encounter Note(s) Provider Source November 14, 2023 09:02 AM ADDENDUM: LOCAL TITLE: Addendum STANDARD TITLE: ADDENDUM DATE OF NOTE: NOVEMBER 14, 2023@09:02 ENTRY DATE: NOVEMBER 14, 2023@09:02:01 AUTHOR: NADIRA PEARCE EXP COSIGNER: URGENCY: STATUS: COMPLETED Forwarding for assistance. /deric/ NADIRA PEARCE loose hand packer Signed: 11/14/2023 09:02 Receipt Acknowledged By: 11/14/2023 09:15 /deric/ ABIDA MEYER RN, MSN --- Original Document --- 11/11/23 Pc Chart Review Note: US of the liver showed fat deposition (Fatty liver). Recommend weight reduction. Alcohol consumption will increase fat in the liver. US of the kidneys showed a benign cyst in the Left kidney. Recommend lab tests to check kidney function (ordered). Will enter a consult for kidney specialist if the kidney function remains below the normal range. Please advise. Thank You. /deric/ GRANT CROSS MD Signed: 11/11/2023 13:21 Receipt Acknowledged By: 11/14/2023 09:01 /deric/ NADIRA PEARCE loose hand packer [facility] November 11, 2023 01:14 PM PRIMARY CARE NOTE: LOCAL TITLE: Pc Chart Review Note STANDARD TITLE: PRIMARY CARE NOTE DATE OF NOTE: NOVEMBER 11, 2023@13:14 ENTRY DATE: NOVEMBER 11, 2023@13:14:41 AUTHOR: GRANT CROSS EXP COSIGNER: URGENCY: STATUS: COMPLETED Pc Chart Review Note Has ADDENDA US of the liver showed fat deposition (Fatty liver). Recommend weight reduction. Alcohol consumption will increase fat in the liver. US of the kidneys showed a benign cyst in the Left kidney. Recommend lab tests to check kidney function (ordered). Will enter a consult for kidney specialist if the kidney function remains below the normal range. Please advise. Thank You. /jessica CROSS MD Signed: 11/11/2023 13:21 Receipt Acknowledged By: 11/14/2023 09:01 /deric/ NADIRA PEARCE loose hand packer 11/14/2023 ADDENDUM STATUS: COMPLETED Forwarding for assistance. /deric/ NADIRA PEARCE loose hand packer Signed: 11/14/2023 09:02 Receipt Acknowledged By: * AWAITING SIGNATURE * MEYER,ABIDA GRANT RUBI-CDD [facility] November 05, 2023 02:56 PM ADDENDUM: LOCAL TITLE: Addendum STANDARD TITLE: ADDENDUM DATE OF NOTE: NOVEMBER 05, 2023@14:56:15 ENTRY DATE: NOVEMBER 05, 2023@14:56:16 AUTHOR: GRANT CROSS EXP COSIGNER: URGENCY: STATUS: COMPLETED FYI, Thank You. /deric/ GRANT CROSS MD Signed: 11/05/2023 14:56 Receipt Acknowledged By: 11/05/2023 15:02 /es/ MARTIN SINHA MD PRIMARY CARE PHYSICIAN --- Original Document --- 10/25/23 E-CONSULT RESPONSE TANNER HEM/ONC: eCONSULT RESPONSE TANNER HEM/ONC: Summary of Review and Recommendations: Mr. Grimes has had five SPEP/BOOKER studies since 2016, including 2022 and again in September 2023, none of which have shown a monoclonal protein. Thus, Mr. Grimes does not have a MGUS (monoclonal gammopathy of unknown significance). 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 This finding, which is not the result of a Heme/Onc disorder, reflects chronic inflammation and/or liver disease and does not typically require a Heme/Onc consult for interpretation. Presumably the Crohn's disease is the source of the chronic inflammation. No surveillance, repeat BOOKER or serum free light chain studies are indicated. I spent 17 minutes reviewing Mr. Grimes's CPRS records and preparing this note. /es/ LYNN PA M.D. CHIEF/HEMATOLOGY/ONCOLOGY SECTION Signed: 10/25/2023 10:[address] [facility] October 25, 2023 09:42 AM HEMATOLOGY AND ONCOLOGY CONSULT: LOCAL TITLE: E-CONSULT RESPONSE TANNER HEM/ONC STANDARD TITLE: HEMATOLOGY AND ONCOLOGY CONSULT DATE OF NOTE: OCTOBER 25, 2023@09:42 ENTRY DATE: OCTOBER 25, 2023@09:42:33 AUTHOR: LYNN PA EXP COSIGNER: URGENCY: STATUS: COMPLETED E-CONSULT RESPONSE TANNER HEM/ONC Has ADDENDA eCONSULT RESPONSE TANNER HEM/ONC: Summary of Review and Recommendations: Mr. Grimes has had five SPEP/BOOKER studies since 2016, including 2022 and again in September 2023, none of which have shown a monoclonal protein. Thus, Mr. Grimes does not have a MGUS (monoclonal gammopathy of unknown significance). 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 This finding, which is not the result of a Heme/Onc disorder, reflects chronic inflammation and/or liver disease and does not typically require a Heme/Onc consult for interpretation. Presumably the Crohn's disease is the source of the chronic inflammation. No surveillance, repeat BOOKER or serum free light chain studies are indicated. I spent 17 minutes reviewing Mr. Grimes's CPRS records and preparing this note. /deric/ LYNN PA M.D. CHIEF/HEMATOLOGY/ONCOLOGY SECTION Signed: 10/25/2023 10:16 11/05/2023 ADDENDUM STATUS: COMPLETED FY, Thank You. /deric/ GRANT CROSS MD Signed: 11/05/2023 14:56 Receipt Acknowledged By: 11/05/2023 15:02 /deric/ MARTIN SINHA MD PRIMARY CARE PHYSICIAN LYNN PA [facility]
--- OUTSIDE RECORDS SUMMARY | 2024-10-12 09:49 | XMS_ITS ---
Author Organization Unknown TREATMENT PLAN [facility] Start Date Provider Encounter for Check-up [id number] [facility]
--- OUTSIDE RECORDS SUMMARY | 2024-10-12 09:49 | XMS_ITS | Encounter Summary ---
Author Name [facility] [place] [facility] [facility] [place] Address [address] [place] [address] Care Team Providers Care Pastry Mixer Name Role Phone MARTIN GILBERT Primary Care Provider Unavail able Insurance Providers: [...] Name Patient's Relationship to Policy Magallanes [employer] [facility] (WNR) MEDICARE ADVANTAGE [facility](W NR) Jun 24, 2012 [id number] LIZBETHRAFFY SUMNER PATIENT MEDICARE PART D (WNR) MEDICARE (M) PART D Jun 24, 2012 PART D [id number] ZHENGRAFFY MITCHELL PATIENT MEDICARE PART D (WNR) MEDICARE (M) PART D Jun 24, 2012 PART D [id number] LIZBETHBURAKRAFFY PATIENT Selected Encounter This section includes the information on record at [place] for the Encounter. Date/Time Encounter Type Encounter Description Reason Provider Source Oct 22, 2023 01:00 PM OFFICE O/P EST MOD 30 MIN PRIMARY CARE/MEDICINE ICD-10-CM I10 Essential (primary) hypertension Aysha CROSS Encounter Template Text not used by [place] Assessments - Encounter Diagnoses This section includes the primary and secondary diagnoses documented for the Encounter. Date/Time Primary/Secondary Diagnosis Diagnosis Name Provider Source Oct 22, 2023 01:46 PM PRIMARY Essential (primary) hypertension [facility] Oct 22, 2023 01:46 PM SECONDARY Crohn's disease of large intestine with unsp complications DENIS CROSS [facility] Oct 22, 2023 01:46 PM SECONDARY Gastro-esophageal reflux disease without esophagitis [facility] Oct 22, 2023 01:46 PM SECONDARY Hyperlipidemia, unspecified DENIS CROSS [facility] Oct 22, 2023 01:46 PM SECONDARY Monoclonal gammopathy DENIS CROSS [facility] Plan of Treatment: Future Appointments (+ 6 months) and Future Tests (+/- 45 days) The Plan of Treatment section includes future care activities for the patient [facility] This section includes future appointments and future orders which are active, pending or scheduled. Future Appointments This section includes appointments that were scheduled to occur 6 months from the date of the Encounter, up to a maximum of 20 appointments. The data comes from all [place] treatment facilities. Appointment Date/Time Appointment Type Appointme nt Facility Name November 07, 2023 08:00 AM AMBULATORY - NONE [facility] November 07, 2023 04:00 PM AMBULATORY NONE [facility] Lab Results: +/- 30 days of the encounter This section includes the Chemistry and Hematology Lab Results on record with [place] for the patient. Radiology Reports and Pathology Reports are provided separately, in subsequent sections. Lab Results This section contains the Chemistry/Hematology Results that were resulted 30 days before or 30 daysafter the date of the Encounter. Date/Time Source Result Type Result - Unit Interpretation Reference Range Specimen Type Comment Oct 22, 2023 01:27 PM [facility] HBSAB SERUM Specimen Type: SERUM Comment: FOR [...] Oct 22, 2023 01:26 PM Reporting Lab: [address] [phone] Performing Lab: [address] [address] HBSAB Nonreactive Nonreactive Oct 22, 2023 01:25 PM [facility] BOOKER (SERUM) SERUM Specimen Type: SERUM Comment: Results confirmed on dilution. No monoclonality detected. Ordering Provider: GRANT CROSS Report Released Date/Time: Oct 22, 2023 01:10 PM Reporting Lab: [address] [address] Performing Lab: [address] [address] .ALBUMIN ELEC 3.3 g/dL 2.9-4.4 .ALPHA 1 ELEC 0.3 g/dL 0.0-0.4 .ALPHA 2 ELEC 0.9 g/dL 0.4-1.0 .BETA ELEC 1.6 g/dL H 0.7-1.3 .GAMMA ELEC 2.0 g/dL H 0.4-1.8 .IGG (SER-BOOKER) 1677 mg/dL H 603-1613 .IGA (SER-BOOKER) 1347 mg/dL H 61-437 .IGM (SER-BOOEKR) 223 mg/dL H 15-143 .TOT SERUM PROT-LC 8.1 g/dL 6.0-8.5 .A/G RATIO SER-BOOKER 0.7 0.7-1.7 .GLOBULIN SER-BOOKER 4.8 g/dL H 2.2-3.9 .M-SPIKE Not Observed g/dL Not Observed .BOOKER INTERPRETATION Comment Oct 22, 2023 01:25 PM [facility] KAPPA + LAMBDA Lt CHAINS, FREE, Serum SERUM S pecimen Type: SERUM No comment entered. Ordering Provider: GRANT CROSS Report Released Date/Time: Oct 22, 2023 01:10 PM Reporting Lab: [address] [address] Performing Lab: [facility] [address] [facility] [address] .Free [place] Lt Chains, S 94.9 mg/L H 3.3-1 9.4 .Free Lambda Lt Chains, S 104.0 mg/L H 5.7 -26.3 .Greens [place]/Lambda Ratio, S 0.91 0.26-1.65 Oct 22, 2023 01:25 PM [facility] CBC/PLT BLOOD Specimen Type: BLOOD No comment entered. Ordering Provider: GRANT CROSS Report Released Date/Time: Oct 22, 2023 01:10 PM Reporting Lab: [address] [address] Performing Lab: [place] [id number] WBC 6.5 10*3/uL 5.0-10.0 RBC 4.11 10*6/uL L 4.6-6.2 HGB 13.1 g/dL L 14.0-18.0 HCT 39.7 L 42.0-52.0 MCV 96.6 fL H 80.0-94.0 MCH 31.9 pg H 27.0-31.0 MCHC 33.0 g/dL 32.0-36.0 PLT 218 10*3/uL 150-450 MPV 10.1 fL 9.0-13.1 RDW 13.2 11.0-16.0 NRBC 0.0 0.0-0.0 Oct 22, 2023 01:25 PM [facility] LIPID PROFILE PLASMA Specimen Type: PLASM A [...] Oct 22, 2023 01:10 PM Reporting Lab: [address] [address] Performing Lab: [address] [address] CHOLESTEROL 127 mg/dL 0-199 TRIGLYCERIDE 100 mg/dL 0-149 HDL CHOLESTEROL 36 mg/dL L 40-69 DIRECT LDL CHOL. 83 mg/dL 0-100 Oct 22, 2023 01:25 PM [facility] PANEL 5 PLASMA Specimen Type: PLASM A [...] Oct 22, 2023 01:10 PM Reporting Lab: [address] [phone] Performing Lab: [address] [address] CREATININE 1.42 mg/dL H 0.72-1.25 UREA NITROGEN [...] PHOS 111 U/L 40-150 eGFR (CKD-EPI) 51 Vital Signs: All taken on the encounter date This section contains inpatient and outpatient Vital Signs collected on the date of the Encounter. Date/Time Temperature Pulse Blood Pressure Respiratory Rate SP02 Pain Height Weight Body Mass Index Source Oct 22, 2023 01:04 PM 96.3 59 137/71 0 171.4 28 [place] [facility] Social History: Smoking Status (Most current) and Tobacco Use (All prior to encounter date) This section includes the most current, and the historical, smoking and tobacco- related health factors from the [place] facility where the Encounter took place. Current Smoking Status This section includes the most current smoking, or tobacco-related health factor, from the [place] facility where the Encounter took place. Date/Time Current Smoking Status Comment Facil ity Oct 22, 2023 01:00 PM VA-TOBACCO FORMER USER [facility] Tobacco Use History This section includes a history of the smoking, or tobacco-related health factors, that were collected on or before the date of the Encounter. The data comes from the [place] facility where the Encounter took place. Date/Time Smoking Status/Tobacco Use Comment F acility Oct 22, 2023 01:00 PM VA-TOBACCO QUIT 15 YRS OR MORE [facility] Oct 19, 2022 09:30 AM VA-TOBACCO FORMER USER [facility] Oct 19, 2022 09:30 AM VA-TOBACCO QUIT 15 YRS OR MORE [facility] Nov 30, 2020 11:30 AM VA-TOBACCO FORMER USER [facility] Nov 30, 2020 11:30 AM VA-TOBACCO QUIT 15 YRS OR MORE [facility] Oct 12, 2019 04:30 PM VA-TOBACCO FORMER USER [facility] Oct 12, 2019 04:30 PM VA-TOBACCO QUIT 15 YRS OR MORE [facility] Sep 18, 2018 10:47 AM VA-TOBACCO FORMER USER [facility] Sep 18, 2018 10:47 AM VA-TOBACCO QUIT 15 YRS OR MORE [facility] October 29, 2016 09:16 AM V9 QUIT TOBACCO >7 YEARS AGO [facility] Jun 03, 2015 02:18 PM V9 QUIT TOBACCO >7 YEARS AGO [facility] Apr 24, 2013 09:05 AM V9 QUIT TOBACCO >7 YEARS AGO [facility] Dec 13, 2011 04:40 PM V9 QUIT TOBACCO >7 YEARS AGO [facility] Nov 30, 2010 07:21 AM V9 QUIT TOBACCO >7 YEARS AGO [facility] Advance Directives: All historical and current Section Date Range: From patient's date of to the date document was created. This section includes ALL of a patient's completed or amended [place] Advance and Rescinded Directives. The entries below indicate that a directive exists for the patient, but an actual copy is not included with this document. The data comes from all [facility]. Date Advance Directives Provider Source Feb 01, 2012 ADVANCE DIRECTIVE [facility] Jan 25, 2012 ADVANCE DIRECTIVE DISCUSSION MURIEL ZHANG [facility] Radiology Reports: +/- 30 days of [...] the Encounter. The data comes from all [place] treatment facilities. Date/Time Radiology Report Provider Source November 07, 2023 07:33 AM U/S KIDNEYS: RAFFY MATHEW MICHELLEPavel [id number] -[id number] M Exm Date: NOVEMBER 07, 2023@07:33 Req Phys: GRANT CROSS Pat Loc: [facility] 16-2 (Req'g Loc Img Loc: ULTRASOUND Service: [place] [address] (Case [id number] COMPLETE)U/S KIDNEYS (US Detailed) CPT:52267 Reason for Study: SEE CLINICAL HISTORY:CRF Clinical History: REASON FOR EXAM: Chronic Renal Failure PERTINENT PATIENT HISTORY: eGFR 51. PROVIDER [id number]# Report Status: Verified Date Reported: NOVEMBER 07, 2023 Date Verified: NOVEMBER 07, 2023 Knuckler E-Sig: Report: Exam: Renal ultrasound Date: November [...] GOMEZ, Diagnostic and Interventional Radiologist Verified by director of cardiopulmonary services for [facility]ION GOMEZ [facility] November 07, 2023 07:33 AM U/S LIVER: RAFFY MATHEW [id number] -[id number] M Exm Date: NOVEMBER 07, 2023@07:33 Req Phys: GRANT CROSS Pat Loc: [facility] HEM ONC ATT 1 (Req'g L Img Loc: ULTRASOUND Service: [place] [address] (Case [id number] COMPLETE)U/S LIVER (US Detailed) CPT:98107 Reason for Study: SEE CLINICAL HISTORY:Polyclonal Gammopathy. R/O Liver disease. Clinical History: REASON FOR EXAM: Other (provide detailed justification for request) PERTINENT PATIENT HISTORY: Polyclonal Gammopathy. ?Liver disease. PROVIDER [id number]# Report Status: Verified Date Reported: NOVEMBER 07, 2023 Date Verified: NOVEMBER 07, 2023 Knuckler E-Sig: Report: Exam: Liver ultrasound. Date: November [...] GOMEZ, Diagnostic and Interventional Radiologist Verified by director of cardiopulmonary services for [place]ION GOMEZ /[place] GOMEZ,LUDMILAPavel [facility] Encounter Notes: All associated encounter notes This section contains the clinical notes associated to the Encounter. Date/Time Encounter Note(s) Provider Source Nov 29, 2023 02:00 PM ADDENDUM: LOCAL TITLE: Addendum STANDARD TITLE: ADDENDUM DATE OF NOTE: NOV 29, 2023@14:00:28 ENTRY DATE: NOV 29, 2023@14:00:29 AUTHOR: ROLANDA CANO COSIGNER: URGENCY: STATUS: COMPLETED Specimen: PLASMA. [place] [id number] Specimen Collection Date: Nov 29, 2023@10:36 Test name Result units Ref. range Site Code CREATININE 1.26 H mg/dL 0.72 - 1.25 [6033] eGFR (CKD-EPI) 59 SEE EVAL [6057] Comment: Estimated Glomerular Filtration Rate (eGFR) calculated [...] G4 Severe decrease <15 G5 Kidney failure = Reporting Lab: [facility] [CLIA# [id number]] [address] [place] [phone] Report Released Date/Time: Nov 29, 2023@11:48 Provider: GRANT CROSS Specimen: URINE. [place] [id number] Specimen Collection Date: Nov 29, 2023@10:36 Test name Result units Ref. range Site Code CREATININE 65.3 mg/dL [6033] Eval: The reference range and other method performance specifications have not Eval: been established for this test in random urine. The test result Eval: should be integrated into the clinical context for interpretation. TOTAL PROTEIN <12 mg/dL 0 - 14 [6033] = Reporting Lab: [facility] [CLIA# [id number]] [address] [place] [phone] Report Released Date/Time: Nov 29, 2023@11:31 Provider: GRANT CROSS Specimen: [place]INE. UR [id number] Specimen Collection Date: Nov 29, 2023@10:36 Test name Result units Ref. range Site Code URINE COLOR Light Yellow Ref: Colorless-Yellow [6033] APPEARANCE Clear Ref: Clear [6033] SPECIFIC GRAVITY 1.010 1.005 - 1.030 [6033] UROBILINOGEN Normal mg/dL Ref: Normal [6033] URINE BLOOD Negative Ref: Negative [6033] URINE BILIRUBIN Negative Ref: Negative [6033] URINE KETONES Negative mg/dL Ref: Negative [6033] URINE GLUCOSE Negative mg/dL Ref: Negative [6033] URINE PROTEIN Negative mg/dL Ref: Negative-Trace [6033] URINE PH 6.5 4.5 - 8.0 [6033] URINE NITRITE Negative Ref: Negative [6033] URINE LEUKOCYTE EST Negative Moisés/uL Ref: Negative [6033] Comment: Microscopic not indicated = -I am covering provider -transfer to Dr. Gilbert (Case [id number] COMPLETE)U/S KIDNEYS (US Detailed) CPT:11338 Reason for Study: SEE CLINICAL HISTORY:CRF Clinical History: REASON FOR EXAM: Chronic Renal Failure PERTINENT PATIENT HISTORY: eGFR 51. PROVIDER [id number]# Report Status: Verified Date Reported: NOVEMBER 07, 2023 Date Verified: NOVEMBER 07, 2023 Knuckler E-Sig: Report: Exam: Renal ultrasound Date: November [...] Bilateral kidneys demonstrate no hydronephrosis or nephrolithiasis. -creatnine is a tad abnl/nl ua-will cont to follow/no need for renal consult at this time /deric/ ROLANDA CANO STAFF PHYSICIAN/PRIMARY CARE Signed: 11/29/2023 14:01 Receipt Acknowledged By: 12/03/2023 08:59 /deric/ NADIRA PEARCE flatwork folder --- Original Document --- 10/23/23 Pc Chart Review Note: Reviewed the lab results from 10/22/23. All are in normal ranges except the kidney function which is reduced. Ordered US of the kidneys and urine test. Once they are done, vet will be referred to a kidney specialist. Serum protein tests are pending. Please advise the . Thank You. /jessica CROSS MD Signed: 10/23/2023 07:47 Receipt Acknowledged By: 10/23/2023 09:18 /deric/ PEBBLES Monk, RN PC Assistive Technology Trainer 10/25/2023 ADDENDUM STATUS: COMPLETED Serum proteins are elevated but stable. Hepatitis B antibody test is negative. Vet may consider getting hepatitis B vaccine. Please advise. Thank you. /jessica CROSS MD Signed: 10/25/2023 07:36 Receipt Acknowledged By: 10/25/2023 08:46 /deric/ PEBBLES Monk, RN PC Assistive Technology Trainer 12/03/2023 ADDENDUM STATUS: UNSIGNED You may not VIEW this UNSIGNED Addendum. ROLANDA CANO [facility] October 25, 2023 07:34 AM ADDENDUM: LOCAL TITLE: Addendum STANDARD TITLE: ADDENDUM DATE OF NOTE: OCTOBER 25, 2023@07:34:38 ENTRY DATE: OCTOBER 25, 2023@07:34:40 AUTHOR: ANNABATHULA,GRANT M EXP COSIGNER: URGENCY: STATUS: COMPLETED Serum proteins are elevated but stable. Hepatitis B antibody test is negative. Vet may consider getting hepatitis B vaccine. Please advise. Thank you. /jessica CROSS MD Signed: 10/25/2023 07:36 Receipt Acknowledged By: 10/25/2023 08:46 /deric/ PEBBLES Monk, RN PC Assistive Technology Trainer --- Original Document --- 10/23/23 Pc Chart Review Note: Reviewed the lab results from 10/22/23. All are in normal ranges except the kidney function which is reduced. Ordered US of the kidneys and urine test. Once they are done, vet will be referred to a kidney specialist. Serum protein tests are pending. Please advise the . Thank You. /jessica CROSS MD Signed: 10/23/2023 07:47 Receipt Acknowledged By: 10/23/2023 09:18 /deric/ PEBBLES Monk, RN PC Assistive Technology Trainer GRANT CROSS [facility] October 23, 2023 07:45 AM PRIMARY CARE NOTE: LOCAL TITLE: Pc Chart Review Note STANDARD TITLE: PRIMARY CARE NOTE DATE OF NOTE: OCTOBER 23, 2023@07:45 ENTRY DATE: OCTOBER 23, 2023@07:45:09 AUTHOR: GRANT CROSS EXP COSIGNER: URGENCY: STATUS: COMPLETED Pc Chart Review Note Has ADDENDA Reviewed the lab results from 10/22/23. All are in normal ranges except the kidney function which is reduced. Ordered US of the kidneys and urine test. Once they are done, vet will be referred to a kidney specialist. Serum protein tests are pending. Please advise the . Thank You. /jessica CROSS MD Signed: 10/23/2023 07:47 Receipt Acknowledged By: 10/23/2023 09:18 /deric/ PEBBLES Monk, RN PC Assistive Technology Trainer 10/25/2023 ADDENDUM STATUS: COMPLETED Serum proteins are elevated but stable. Hepatitis B antibody test is negative. Vet may consider getting hepatitis B vaccine. Please advise. Thank you. /deric/ GRANT CROSS MD Signed: 10/25/2023 07:36 Receipt Acknowledged By: 10/25/2023 08:46 /deric/ PEBBLES Monk, RN PC Assistive Technology Trainer 11/29/2023 ADDENDUM STATUS: COMPLETED Specimen: PLASMA. [id number] Specimen Collection Date: Nov 29, 2023@10:36 Test name Result units Ref. range Site Code CREATININE 1.26 H mg/dL 0.72 - 1.25 [6033] eGFR (CKD-EPI) 59 SEE EVAL [6028] Comment: Estimated Glomerular Filtration Rate (eGFR) calculated [...] G4 Severe decrease <15 G5 Kidney failure = Reporting Lab: [facility] [CLIA# [id number]] [address] [place] [phone] Report Released Date/Time: Nov 29, 2023@11:48 Provider: GRANT CROSS Specimen: URINE. [id number] Specimen Collection Date: Nov 29, 2023@10:36 Test name Result units Ref. range Site Code CREATININE 65.3 mg/dL [6033] Eval: The reference range and other method performance specifications have not Eval: been established for this test in random urine. The test result Eval: should be integrated into the clinical context for interpretation. TOTAL PROTEIN <12 mg/dL 0 - 14 [6033] = Reporting Lab: [facility] [CLIA# [id number]] [address] [place] [phone] Report Released Date/Time: Nov 29, 2023@11:31 Provider: GRANT CROSS Specimen: URINE. [id number] Specimen Collection Date: Nov 29, 2023@10:36 Test name Result units Ref. range Site Code URINE COLOR Light Yellow Ref: Colorless-Yellow [6033] APPEARANCE Clear Ref: Clear [6033] SPECIFIC GRAVITY 1.010 1.005 - 1.030 [6033] UROBILINOGEN Normal mg/dL Ref: Normal [6033] URINE BLOOD Negative Ref: Negative [6033] URINE BILIRUBIN Negative Ref: Negative [6033] URINE KETONES Negative mg/dL Ref: Negative [6033] URINE GLUCOSE Negative mg/dL Ref: Negative [6033] URINE PROTEIN Negative mg/dL Ref: Negative-Trace [6033] URINE PH 6.5 4.5 - 8.0 [6033] URINE NITRITE Negative Ref: Negative [6033] URINE LEUKOCYTE EST Negative Moisés/uL Ref: Negative [6033] Comment: Microscopic not indicated = -I am covering provider -transfer to Dr. Gilbert (Case [id number] COMPLETE)U/S KIDNEYS (US Detailed) CPT:34304 Reason for Study: SEE CLINICAL HISTORY:CRF Clinical History: REASON FOR EXAM: Chronic Renal Failure PERTINENT PATIENT HISTORY: eGFR 51. PROVIDER [id number]# Report Status: Verified Date Reported: NOVEMBER 07, 2023 Date Verified: NOVEMBER 07, 2023 Knuckler E-Sig: Report: Exam: Renal ultrasound Date: November [...] Bilateral kidneys demonstrate no hydronephrosis or nephrolithiasis. -creatnine is a tad abnl/nl ua-will cont to follow/no need for renal consult at this time /deric/ ROLANDA CANO STAFF PHYSICIAN/PRIMARY CARE Signed: 11/29/2023 14:01 Receipt Acknowledged By: 12/03/2023 08:59 /deric/ NADIRA PEARCE flatwork folder 12/03/2023 ADDENDUM STATUS: COMPLETED Spoke with patient regarding pcp recs r/t cr. level. Patient v/u. /deric/ NADIRA PEARCE flatwork folder Signed: 12/03/2023 09:00 GRANT CROSS [facility] Oct 22, 2023 02:16 PM MEDICATION MGT NOTE: LOCAL TITLE: OUTPATIENT ESSENTIAL MEDICATION LIST FOR REVIEW (EM STANDARD TITLE: MEDICATION MGT NOTE DATE OF NOTE: OCT 22, 2023@14:16 ENTRY DATE: OCT 22, 2023@14:16:10 AUTHOR: GRANT CROSS EXP COSIGNER: URGENCY: STATUS: COMPLETED Review of medications include: Patient allergies (Remote and Local) and active and pending prescriptions dispensed from this [place] (local) and dispensed from another [place] or [facility] facility (remote and pending) as well as local inpatient orders (pending and active) and clinic medications (IMOs), locally documented non-VA medications and local prescriptions that have or been discontinued in the past 90 days. With the exception of Allergies, if a category is not listed below, it means there were no relevant medications for the patient. ALLERGIES: Patient has answered NKA No Remote Allergy/ADR Data available for this patient ACTIVE OUTPATIENT MEDICATIONS LOCAL/REMOTE No local medications found. No remote medications found. PENDING OUTPATIENT MEDICATIONS (LOCAL/REMOTE): No local medications found. No remote medications found. ACTIVE NONVA MEDICATIONS (LOCAL): AMLODIPINE BESYLATE 2.5MG TAB Directions: 2.5MG MOUTH DAILY Status: ACTIVE ASPIRIN 81MG EC TAB Directions: 81MG MOUTH DAILY Status: ACTIVE HYDROCHLOROTHIAZIDE 12.5MG CAP Directions: 12.5MG MOUTH DAILY Status: ACTIVE INFLIXIMAB INJ,LYPHL Directions: INTO THE VEIN DIRECTED [id number] Status: ACTIVE METOPROLOL SUCCINATE 50MG SA TAB Directions: 25MG MOUTH DAILY Status: ACTIVE OMEPRAZOLE 20MG EC CAP Directions: 20MG MOUTH DAILY Status: ACTIVE ROSUVASTATIN CA 40MG TAB Directions: 20MG MOUTH AT BEDTIME Status: ACTIVE OUTPATIENT MEDICATIONS (LOCAL)WITHIN 90 DAYS: No local medications found. DISCONTINUED OUTPATIENT MEDICATIONS (LOCAL) WITHIN 90 DAYS: No local medications found. CLINIC MEDICATIONS (LOCAL): No local medications found. /deric/ GRANT CROSS MD Signed: 10/22/2023 14:16 GRANT CROSS [facility] Oct 22, 2023 01:10 PM PRIMARY CARE NOTE: LOCAL TITLE: PC PROGRESS NOTE STANDARD TITLE: PRIMARY CARE NOTE DATE OF NOTE: OCT 22, 2023@13:10 ENTRY DATE: OCT 22, 2023@13:10:59 AUTHOR: GRANT CROSS EXP COSIGNER: URGENCY: STATUS: COMPLETED CC:HTN,GERD,Crohn's disease, MGUS. HPI:78 year old male came for an annual f/u visit. Vet c/o SOB on moderate exertion for the last 6 months. He was treated for a pneumonia on 05/2023. Had echo and PFT. Has CT scan of the chest scheduled for next week followed by a pulmonary appointment. No chest pain. HTN, controlled, on Amlodipine, BB and HCTZ. Hyperlipidemia, on statin. GERD, stable on Omeprazole. Crohn's disease, stable on remacaide injections. Last injection was held due to Pneumonia. Non VA PCP: Dr. Zamarripa in [place], [place]. PMH: Active problems - Computerized Problem List is the source for the followin. Tobacco Use Disorder, Remission 2. Crohn Disease 3. GERD 4. Hyperlipidemia 5. HTN No smoking,quit 27 yrs ago,drinks beer a couple of beers 2 x a week. No medication Allergies. Surg:Oral surgery. 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 F/H:Father young of a heart attack. Mother at age 90. Brother had a stent. MEDS:ACTIVE OUTPATIENT PRESCRIPTIONS - NONE FOUND ROS: Constitutional-neg. Eyes-neg. Ent/mouth-neg. Cv-neg. Respiratory-SOB on exertion. Gi-neg. Gu-neg. Musculoskeletal-neg. Skin/breast-neg. Neuro-neg. Psych-neg. Endocrine-neg. Hem/lymph-neg. PE: vs: 137/71 (10/22/2023 13:04)59 (10/22/2023 13:04)171.4 lb [77.75 kg] (10/22/2023 13:04)66 in [167.6 cm] (10/19/2022 09:34)0 (10/22/2023 13:04) BODY MASS INDEX - 27.7 Pleasant, neat appearing,alert and orientated.Not distressed. EYES:nl conjunctivae and lids;yue. ENT:no preauricle or tragal tenderness,(R) TM good lt reflex w/o bulging,retraction,or effusion.(L) TM -good lt reflex, no effusion,injection.Hearing: ok, nasal mucosa,septum and turbinates-ok lips,teeth,gums- nl. Oropharynx- neg NECK:supple, nl thyroid; no lymphadenopathy. RESPIRATORY: nl- respiratory effort; cta bilat.No adventitious sounds. CV:nl- palpation of heart; rrr w/o mrg; carotids - +2 and equal;no bruits. GI:no masses or tenderness;liver and spleen -nl,no hernia. MS:gait and station - Normal, no instability. No joint swellings. SKIN; nl - inspection and palpation of skin and subcutaneous tissue; NEUROLOGY;cranial nerves 2-12 check and intact; reflexes;knees 2+ and symmetrical;Akles 1+ and symmetrical.Sensation- nl EXT;No edema,no clubbing no cyanosis. PSYCH:good judgment and insight oriented to time and place and person; memory -ok, mood and affect - appropriate. Assesment and Plan: 1.Essential HTN-controlled; continue metoprolol XL 25 mg once daily. 2.GERD without esophagitis-stable on omeprazole 20 mg once daily; continue. 3.Crohn's Disease of large intestine with unspecified complications-no symptoms; on remacaide injections; non VA. 4.Unspecified Hyperlipidemia-ldl level was 84, at goal; continue Rosuvastatin. 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 Cancer screening:colonoscope,done at colorectal surgery.11/2019. PSA,0.369,10/2018. Vaccinations-flu,04/14. In [place].() Pneumovac-2009 DT-12/03. The outpatient Essential Medication list for review (EMLR) was reviewed with the patient. Both VA and non VA medications reviewed; no discrapency noted. Patient was provided a printed corrected/reconciled medication list. Reviewed lab results with the . expressed understanding of topics discussed and education provided today RTC:11 months,with same day labs. Adv Dir/Pt Rights & Resp: The patient indicates that they have an advanced directive and that we have a copy on file already. The following information was shared with the patient/family, and pamphlets were provided: -What is Primary Care -Help Us to Serve You Better -Receiving Medications from the [facility] -Renew Your Prescriptions over the Phone -Patient Rights and Responsibilities -Your Right to Decide ADL/IADL Functional Measures(V9): Incontinence Screen: Within the past 12 months, has the patient had any characteristics of incontinence (ability, voiding, leakage, etc.)? No incontinence. Falls Screen: Patient does not report falls within the past 12 months. Dementia Warning Signs: Please indicate below whether the patient or caregiver report any warning signs of Dementia? No warning signs of dementia noted. [place] Index of [place] in Activities of Daily Living: CAMPOS INDEX FOR ADL ASSESSMENT: CAMP[place] Index of [place] in Activities of Daily Living was completed at this encounter. BATHING: Patient needs no supervision, direction or personal assistance with bathing. DRESSING: Patient needs no supervision, direction or personal assistance with dressing. TOILETING: Patient needs no supervision, direction or personal assistance with toileting. TRANSFERRING: Patient needs no supervision, direction or personal assistance with transferring. CONTINENCE: Patient needs no supervision, direction or personal assistance with bowel continence. FEEDING: Patient needs no supervision, direction or personal assistance with feeding/eating. ENTER TOTAL SCORE BELOW: TOTAL POINTS: = [ 6 ] NOTE: 6-5 = FULL FUNCTION (patient independent) INSTRUMENTAL ACTIVITIES OF DAILY LIVING (IADL) SCALE ([place]) Telephone: 1 point - Looks up numbers, dials, receives and makes calls without help Shoppin point - Takes care of all shopping needs independently Food preparation: 1 point - Plans, prepares, and serves adequate meals independently Housekeepin point - Maintains house alone or with occasional assistance (e.g., heavy work domestic help ) Laundry: 1 point - Able to do personal laundry completely. Mode of transportation: 1 point - Travels independently on public transportation or drives own car Responsibility for own medications: 1 point - Is responsible for taking medication in correct dosages at correct time Ability to handle finances: 1 point - Manages financial matters independently (budgets, writes checks, pays rent and bills, goes to bank), collects and keeps track of income SCORING: The total score may range from 0 - 8. A lower score indicates a higher level of dependence. 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 Patient advised to carry a list of current medications and any allergies with them in the event of emergency situations. Yes - [facility]/Caregiver verbalized understanding of topics discussed and education provided Provider notified of elevated B/P >/= 140/90. Not Applicable COVID-19 Immunization: Vaccine given previously - no written/electronic documentation available Td / Tdap Immunization: The patient may have been vaccinated in the past but written documentation of vaccination is not available today. Patient instructed to obtain a written record of the prior vaccine and bring it to the next appointment. Herpes Zoster (Shingles) Vaccine: Prior Herpes Zoster vaccination The patient has been vaccinated in the past but written documentation of vaccination is not available today. Patient instructed to obtain a written record of the prior vaccine and bring it to the next appointment. Hepatitis B Immunization: The patient has been vaccinated in the past but written documentation of vaccination is not available today. Patient instructed to obtain a written record of the prior vaccination series and bring it to the next appointment. Influenza Immunization: The patient has received the seasonal influenza vaccine for the current season at another location. Documented: INFLUENZA, UNSPECIFIED FORMULATION Historical Date Administered: Feb 2023 Exact date unknown Outside Location: Home Information Source: SOURCE UNSPECIFIED Tobacco Use Screening: The patient is a former tobacco user. The patient quit fifteen or more years ago. Homelessness/Food Insecurity Screen: In the past 2 months, have you been living in stable housing that you own, rent, or stay in as part of a household? Yes - Living in stable housing. Are you worried or concerned that in the next 2 months you may NOT have stable housing that you own, rent, or stay in as part of a household? No - Not worried about housing near future The [facility] reports the following: Within the past 12 months, you worried whether your food would run out before you got money to buy more. Never true Within the past 12 months, the food you bought just didn't last and you didn't have money to get more. Never true Alcohol Use Screen (AUDIT-C): Alcohol Screen: SCREEN FOR ALCOHOL (AUDIT-C) An alcohol screening test (AUDIT-C) was negative (score=3). 1. How often did you have a drink containing alcohol in the past year? Consider a drink to be a 12 ounce can or bottle of regular beer, 8 ounces of malt liquor, a 5 ounce glass of table wine, or a 1.5 ounce shot of liquor (like scotch, gin, or vodka). Two to three times per week 2. How many drinks containing alcohol did you have on a typical day when you were drinking in the past year? One or two drinks 3. How often did you have six or more drinks on one occasion in the past year? Never Depression Screening: Perform PHQ-2 A PHQ-2 screen was performed. The score was 0 which is a negative screen for depression. Over the past two weeks, how often have you been bothered by the following problems? 1. Little interest or pleasure in doing things Not at all 2. Feeling down, depressed, or hopeless Not at all Suicide Screen: C-SSRS Screening [place] Suicide Severity Rating Scale (C-SSRS) screener 1. Over the past month, have you wished you were or wished you could go to sleep and not wake up? No 2. Over the past month, have you had any actual thoughts of killing yourself? No 3. Over the past month, have you been thinking about how you might do this? Response not required due to responses to other questions. 4. Over the past month, have you had these thoughts and had some intention of acting on them? Response not required due to responses to other questions. 5. Over the past month, have you started to work out or worked out the details of how to kill yourself? Response not required due to responses to other questions. 6. If yes, at any time in the past month did you intend to carry out this plan? Response not required due to responses to other questions. 7. In your lifetime, have you ever done anything, started to do anything, or prepared to do anything to end your life (for example, collected pills, obtained a gun, gave away valuables, went to the roof but didn't jump)? No 8. If YES, was this within the past 3 months? Response not required due to responses to other questions. Sexual Orientation: The patient thinks of their sexual orientation as: Straight or Heterosexual Learning Readiness Assessment: Preferred language for discussing health care [place] NEW ASSESSMENT LEARNING BARRIERS No barriers to learning READING LIMITATIONS No reading limitations PREFERRED METHODS FOR LEARNING Written/Printed Material INTERESTED IN LEARNING (MOTIVATED) PERSON BEING EDUCATED TODAY Education was provided on the following topics RESPONSE Adv Dir/Pt Rights & Resp: The patient indicates that they have an advanced directive and that we have a copy on file already. /deric/ VINAY AGOSTO LICENSED PRACTICAL NURSE Signed: 10/22/2023 13:04 [facility]
[2024-10-12 10:11] LABS: Blood Urea Nitrogen 14 mg/dl (9-20); Estimated Glomerular Filt Rate 65 ml/min (>60); GFR (African American) 79 ML/MIN (>60)
[2024-10-12] MEDS: GADOTERIDOL INJ 20ML SYRINGE 16 ML IV (11:39)
[2024-10-12] MEDS: 0.9 % SODIUM CHLORIDE 50 ML VIAL IV (11:39)
[2024-10-12] MEDS: SODIUM CHLORIDE 0.9% 10ML SYR (RAD ONLY) 10 ML IV (11:39)
== END 2024-10-12 23:59 | disposition home or self-care (01) ==
LOC: RAD 09:47
PROVIDERS: PCP Family Medicine; Visit Provider Physician Assistant
DX: R55 Syncope and collapse (principal); R00.1 Bradycardia, unspecified; R94.31 Abnormal electrocardiogram [ECG] [EKG]; R42 Dizziness and giddiness; I25.10 Atherosclerotic heart disease of native coronary artery without angina pectoris; R06.09 Other forms of dyspnea; I51.7 Cardiomegaly; R93.1 Abnormal findings on diagnostic imaging of heart and coronary circulation
CPT/HCPCS: 36415; 75561; 82565; 84520; A9576

== ENCOUNTER 2024-11-03 13:27 | Outpatient (CLI) | payer MEDICARE, SELFPAY ==
--- OUTSIDE RECORDS SUMMARY | 2024-11-03 13:29 | XMS_ITS ---
Author Name [facility] [place] [facility] Address [address] [place] [address] Care Team Providers Care Commercial Hvac Service Technician Name Role Phone MARTIN SINHA Primary Care [...] Policy [place] HUMANA MCR (WNR) MEDICARE ADVANTAGE [facility](W NR) Jun 24, 2012 [id number] [id number] LIZBETHBURAKRAFFY PATIENT MEDICARE PART D (WNR) MEDICARE (M) PART D Jun 24, 2012 PART D [id number] ZHENGRAFFY MITCHELL PATIENT MEDICARE PART D (WNR) MEDICARE (M) PART D Jun 24, 2012 PART D [id number] LIZBETHBURAKRAFFY PATIENT Selected Encounter This section includes the information on record at [place] for the Encounter. Date/Time Encounter Type Encounter Description Reason Pro vider Source Oct 21, 2024 10:58 AM Outpatient Encounter ADMIN PAT ACTIVTIES (MASNONCT) IHE Encounter Template Text not used by [facility] Lab Results: +/- 30 days of the encounter This section includes the Chemistry and Hematology Lab Results on record with [place] for the patient. Radiology Reports and Pathology Reports are provided separately, in subsequent sections. Lab Results This section contains the Chemistry/Hematology Results that were resulted 30 days before or 30 daysafter the date of the Encounter. Date/Time Source Result Type Result - Unit Interpretation Reference Range Specimen Type Comment Oct 21, 2024 10:12 AM [facility] (SERUM) SERUM Specimen Type: SERUM Comment: Results confirmed on dilution. No monoclonality detected. Ordering Provider: CONI SINHA Report Released Date/Time: Oct 21, 2024 10:06 AM Reporting Lab: [address] [address] Performing Lab: [address] [address] .ALBUMIN ELEC 3.6 g/dL 2.9-4.4 .ALPHA 1 ELEC 0.3 g/dL 0.0-0.4 .ALPHA 2 ELEC 0.8 g/dL 0.4-1.0 .BETA ELEC 1.8 g/dL H 0.7-1.3 .GAMMA ELEC 1.6 g/dL 0.4-1.8 .IGG (SER-BOOKER) 1605 mg/dL 603-1613 .IGA (SER-BOOKER) 1221 mg/dL H 61-437 .IGM (SER-BOOKER) 192 mg/dL H 15-143 .TOT SERUM PROT-LC 8.0 g/dL 6.0-8.5 .A/G RATIO SER-BOOKER 0.9 0.7-1.7 .GLOBULIN SER-BOOKER 4.4 g/dL H 2.2-3.9 .M-SPIKE Not Observed g/dL Not Observed .BOOKER INTERPRETATION Comment Oct 21, 2024 10:12 AM [facility] KAPPA + LAMBDA Lt CHAINS, FREE, Serum SERUM S pecimen Type: SERUM No comment entered. Ordering Provider: MARTIN SINHA Report Released Date/Time: Oct 21, 2024 10:06 AM Reporting Lab: [address] [address] Performing Lab: [address] [address] .Free [place] Lt Chains, S 71.0 mg/L H 3.3-1 9.4 .Free Lambda Lt Chains, S 59.3 mg/L H 5.7- 26.3 .[place]/Lambda Ratio, S 1.20 0.26-1.65 Oct 21, 2024 10:12 AM [facility] PLASMA Specimen Type: PLASM A Comment: Estimated [...] decrease <15 G5 Kidney failure Ordering Provider: MARTIN SINHA Report Released Date/Time: Oct 21, 2024 09:54 AM Reporting Lab: [address] [address] Performing Lab: [address] [address] TSH 0.9451 m[IU]/mL 0.3500-4.9400 Oct 21, 2024 10:12 AM [facility] GLYCOHEMOGLOBIN BLOOD Specimen Type: BLOOD Comment: Prediabetes: 5.7%-6.4% Diabetes: >= 6.5% [facility] guidelines for A1c interpretation: Glycemic control targets are based on Shared Decision Making between clinicians and patients. Criteria used to establish an A1c target recommendation can be found at https://www.in.gov/qualityandpatientsafety/ and include the use of result accuracy and precision(CV) of the A1c tests clinicians utilize at their own sites of practice. Values obtained from A1C measurements can vary. For typical A1C assays, a reported value of 7.0 could actually be between 6.72 and 7.28 if measured by a reference method. A reported value of 9.0 could actually be between 8.73 and 9.27. Ref: https://ngsp.org/CAPdata.asp. The in-house [employer] Showcase D-100 analyzer has a historical CV <= 2%. Contact the laboratory for further performance characteristics of this assay. Ordering Provider: MARTIN SINHA Report Released Date/Time: Oct 21, 2024 09:54 AM Reporting Lab: [address] [address] Performing Lab: [address] [address] GLYCOHEMOGLOBIN 5.5 4.4-5.6 Oct 21, 2024 10:12 AM [facility] LIPID PROFILE PLASMA Specimen Type: PLASM A [...] decrease <15 G5 Kidney failure Ordering Provider: MARTIN SINHA Report Released Date/Time: Oct 21, 2024 09:54 AM Reporting Lab: [address] [address] Performing Lab: [address] [address] CHOLESTEROL 145 mg/dL 0-199 TRIGLYCERIDE 54 mg/dL 0-149 HDL CHOLESTEROL 61 mg/dL 40-69 DIRECT LDL CHOL. 80 mg/dL 0-100 Oct 21, 2024 10:12 AM [facility] CBC/PLT BLOOD Specimen Type: BLOOD No comment entered. Ordering Provider: MARTIN SINHA Report Released Date/Time: Oct 21, 2024 09:54 AM Reporting Lab: [address] [address] Performing Lab: [address] [place] [address] WBC 7.1 10*3/uL 5.0-10.0 RBC 4.17 10*6/uL L 4.6-6.2 HGB 13.8 g/dL L 14.0-18.0 HCT 40.6 L 42.0-52.0 MCV 97.4 fL H 80.0-94.0 MCH 33.1 pg H 27.0-31.0 MCHC 34.0 g/dL 32.0-36.0 PLT 166 10*3/uL 150-450 MPV 10.5 fL 9.0-13.1 RDW 13.7 11.0-16.0 NRBC 0.0 0.0-0.0 Oct 21, 2024 10:12 AM [facility] Specimen Type: PLASM A [...] decrease <15 G5 Kidney failure Ordering Provider: MARTIN SINHA Report Released Date/Time: Oct 21, 2024 09:54 AM Reporting Lab: [address] [address] Performing Lab: [address] [address] CREATININE 1.28 mg/dL H 0.72-1.25 UREA NITROGEN 15 mg/dL 9-25 GLUCOSE 100 mg/dL 74-100 SODIUM 140 mmol/L 136-145 POTASSIUM 4.4 mmol/L 3.5-5.1 CHLORIDE 108 mmol/L H 98-107 CO2 24 mmol/L 22-29 CALCIUM 9.4 mg/dL 8.4-10.2 TOTAL PROTEIN 9.0 g/dL H 6.4-8.3 ALBUMIN 4.1 g/dL 3.5-5.2 TOTAL BILIRUBIN 0.8 mg/dL 0.2-1.2 AST 22 U/L 5-34 ALT 18 U/L 0-55 ANION GAP 8 meq/L 3-19 ALK PHOS 100 U/L 40-150 eGFR (CKD-EPI) 58 Advance Directives: All historical and current Section Date Range: From patient's date of to the date document was created. This section includes ALL of a patient's completed or amended [place] Advance and Rescinded Directives. The entries below indicate that a directive exists for the patient, but an actual copy is not included with this document. The data comes from all [place] facilities. Date Advance Directives Provider Source Feb 01, 2012 ADVANCE DIRECTIVE PAULINE DAWN [facility] Jan 25, 2012 ADVANCE DIRECTIVE DISCUSSION MURIEL ZHANG [facility] Encounter Notes: All associated encounter notes This section contains the clinical notes associated to the Encounter. Date/Time Encounter Note(s) Provider Source Oct 21, 2024 10:58 AM ADMINISTRATIVE NOT E: LOCAL TITLE: HEALTH BENEFITS ADMINISTRATIVE NOTE STANDARD TITLE: ADMINISTRATIVE NOTE DATE OF NOTE: OCT 21, 2024@10:58 ENTRY DATE: OCT 21, 2024@10:59:08 AUTHOR: MAREN PAYNE EXP COSIGNER: URGENCY: STATUS: COMPLETED Eligible for enrollment: Yes [place] has been enrolled and assigned to priority group 8D HBA enrolled Sep [facility] was processed to be mailed on the address on record after confirming with the /deric/ MAREN PAYNE Signed: 10/21/2024 10:59 [facility]
--- OUTSIDE RECORDS SUMMARY | 2024-11-03 13:29 | XMS_ITS | Continuity of Care Document ---
Author Name [facility] Organization [facility] Care Team Providers Care Fish Checker Name Role Phone [facility] Unavailable Unavailable Problems Combined list of problems from [facility] and [facility] facilities. It does not include entries that were removed or entered in error. Problem Status Onset Date Problem Type Date of Resolution Comments Source Benign essential hypertension Active Condition [facility] Benign hypertension Active Condition [facility] Crohn Disease * (ICD-9-CM 555.9/555.0/555.1/558.9) Active Condition [facility] Crohn's disease Active Condition [facility] Gastroesophageal reflux disease Active Condition [facility] Gastroesophageal reflux disease Active Condition [facility] HTN * (ICD-9-CM 401.9) Active Condition [facility] Hyperlipidemia Active Condition [facility] Polyclonal hypergammaglobulinemia Active Condition [facility] Sinusitis Active Condition [facility] Tobacco Use Disorder, Remission (ICD-9-CM 305.1) Active Condition [facility] Diagnosis: ICD-10-CM I10 Essential (primary) hypertension Active Diagnosis [facility] Diagnosis: ICD-10-CM Z71.89 Other specified counseling Active Diagnosis [facility] Diagnosis: ICD-10-CM D89.0 Polyclonal hypergammaglobulinemia Active Diagnosis [facility] Medications Combined list of outpatient medications from [facility] and [facility] facilities.Medications provided include 1) outpatient medications from the last 15 months, and 2) patient-reported medications. Medication Details Route Status Patient Instructions Prescription Expires Prescription Number Last Dispense Date Ordering Provider Order Date Order Qty Source AMLODIPINE BESYLATE 2.5MG TAB TAKE ONE TABLET BY MOUTH DAILY ORAL ACTIVE GRANT LOW 2018 [place] [facility] ASPIRIN 81MG TAB,EC TAKE ONE TABLET BY MOUTH DAILY ORAL ACTIVE BUCIO,E MEREDITH A 2010 [place] [facility] HYDROCHLORO THIAZIDE 12.5MG CAP TAKE 1 CAPSULE BY MOUTH DAILY ORAL ACTIVE GRANT LOW 2020 [place] [facility] INFLIXIMAB INJ,LYPHL INJECT INTO THE VEIN DIRECTED [id number] INTRAV ENOUS ACTIVE GRANT LOW 2014 [place] [facility] METOPROLOL SUCCINATE 50MG TAB,SA TAKE ONE-HALF TABLET BY MOUTH DAILY ORAL ACTIVE BUCIO,E MEREDITH A 2010 [place] [facility] OMEPRAZOLE 20MG CAP,EC TAKE 1 CAPSULE BY MOUTH DAILY ORAL ACTIVE BUCIO,E MEREDITH A 2010 [place] [facility] ROSUVASTATI N CA 40MG TAB TAKE ONE-HALF TABLET BY MOUTH AT BEDTIME ORAL ACTIVE BUCIO,E MEREDITH A 2010 [place] [facility] Immunizations Combined list of available immunizations from the Department of Defense and [facility] facilities. Immunization Series Date Given Administered By Site Reaction Lot Number CVX Code Drug Pre Press Proofer Status Comments Source INFLUENZA, UNSPECIFIED FORMULATION 2023 88 complet ed HISTORICA L INFORMATI ON - FROM PATIENT'S RECALL, [place] [facility] INFLUENZA, UNSPECIFIED FORMULATION 2022 88 complet ed HISTORICA L INFORMATI ON - SOURCE UNSPECIFI ED, [place] [facility] COVID-19 (Eventials), MRNA, LNP-S, PF, 30 MCG/0.3 ML DOSE, JOI-SUCROSE (AGES 12+ YEARS) 4 2021 217 complet ed HISTORICA L INFORMATI ON - FROM OTHER REGISTRY, [place] [facility] COVID-19 (Eventials), MRNA, LNP-S, PF, 30 MCG/0.3 ML DOSE 3 2020 208 complet ed HISTORICA L INFORMATI ON - FROM OTHER REGISTRY, [place] [facility] INFLUENZA, HIGH-DOSE, QUADRIVALENT 5 2020 197 complet [...] ON - FROM OTHER REGISTRY, [place] [facility] INFLUENZA A & B (HISTORICAL) 2015 88 complet ed UTD [place] [facility] INFLUENZA A & B (HISTORICAL) 2014 88 complet ed UTD [place] [facility] PNEUMOCOCCAL CONJUGATE PCV 13 2012 133 complet ed PER PT. HX. [place] [facility] INFLU[facility] A & B (HISTORICAL) 2012 88 complet ed UP TO DATE [place] [facility] INFLU[facility] A & B (HISTORICAL) 2011 88 complet ed UP TO DATE FOR THE FLU SEASON. [place] [facility] DTP 2011 [place] 01 complet ed [place] [facility] INFLUEN[facility] A & B (HISTORICAL) 2010 88 complet ed UP TO DATE FOR THE 2011-05 FLU SEASON. [place] [facility] INFLUEN[facility] A & B (HISTORICAL) 2009 88 complet ed [place] [facility], UNSPECIFIED FORMULATION 2009 109 complet ed UP TO DATE [place] [facility] Results Combined list of recent chemistry, hematology and other laboratory results from Department of Defense and Veterans Affairs, ranging from 15 months to all on record, depending upon the facility. Order Name Results Value Reference Range Date Interpretation Specimen Comments Source [facility] (SERUM) ALBUMIN [MASS/VOLU ME] IN SERUM OR PLASMA BY ELECTROPHO RESIS 3.6 g/dL 2.9 - 4.4 10/21 Specimen Type: SERUM Comment: Results confirmed on dilution. No monoclonali ty detected. Ordering Provider: Elisha SINHA Report Released Date/Time: Oct 21, 2024 10:06 AM Reporting Lab: [facility] [address] [facility] [address] Performing Lab: [facility] [address] [facility] [address] [facility] (SERUM) ALPHA 1 GLOBULIN [MASS/VOLU ME] IN SERUM OR PLASMA BY ELECTROPHO RESIS 0.3 g/dL 0.0 - 0.4 10/21 Specimen Type: SERUM Comment: Results confirmed on dilution. No monoclonali ty detected. Ordering Provider: Elisha SINHA Report Released Date/Time: Oct 21, 2024 10:06 AM Reporting Lab: [place] [address] Performing Lab: [address] [facility] (SERUM) ALPHA 2 GLOBULIN [MASS/VOLU ME] IN SERUM OR PLASMA BY ELECTROPHO RESIS 0.8 g/dL 0.4 - 1.0 10/21 Specimen Type: SERUM Comment: Results confirmed on dilution. No monoclonali ty detected. Ordering Provider: Elisha SINHA Report Released Date/Time: Oct 21, 2024 10:06 AM Reporting Lab: [place] [address] Performing Lab: [address] [facility] (SERUM) BETA GLOBULIN [MASS/VOLU ME] IN SERUM OR PLASMA BY ELECTROPHO RESIS 1.8 g/dL 0.7 - 1.3 10/21 H Specimen Type: SERUM Comment: Results confirmed on dilution. No monoclonali ty detected. Ordering Provider: Elisha SINHA Report Released Date/Time: Oct 21, 2024 10:06 AM Reporting Lab: [place] [address] Performing Lab: [address] [facility] (SERUM) GAMMA GLOBULIN [MASS/VOLU ME] IN SERUM OR PLASMA BY ELECTROPHO RESIS 1.6 g/dL 0.4 - 1.8 10/21 Specimen Type: SERUM Comment: Results confirmed on dilution. No monoclonali ty detected. Ordering Provider: Elisha SINHA Report Released Date/Time: Oct 21, 2024 10:06 AM Reporting Lab: [place] [address] Performing Lab: [address] [address] [facility] B[facility] (SERUM) IGG [MASS/VOLU ME] IN SERUM OR PLASMA 1605 mg/dL 603 - 1613 10/21 Specimen Type: SERUM Comment: Results confirmed on dilution. No monoclonali ty detected. Ordering Provider: Elisha SINHA Report Released Date/Time: Oct 21, 2024 10:06 AM Reporting Lab: [place] [phone] Performing Lab: [address] [address] [facility] B[place] (SERUM) IGA [MASS/VOLU ME] IN SERUM OR PLASMA 1221 mg/dL 61 - 437 10/21 H Specimen Type: SERUM Comment: Results confirmed on dilution. No monoclonali ty detected. Ordering Provider: Elisha SINHA Report Released Date/Time: Oct 21, 2024 10:06 AM Reporting Lab: [address] [address] Performing Lab: [address] [address] [facility] (SERUM) IGM [MASS/VOLU ME] IN SERUM OR PLASMA 192 mg/dL 15 - 143 10/21 H Specimen Type: SERUM Comment: Results confirmed on dilution. No monoclonali ty detected. Ordering Provider: Elisha SINHA Report Released Date/Time: Oct 21, 2024 10:06 AM Reporting Lab: [address] [address] Performing Lab: [address] [address] [facility] (SERUM) PROTEIN [MASS/VOLU ME] IN SERUM OR PLASMA 8.0 g/dL 6.0 - 8.5 10/21 Specimen Type: SERUM Comment: Results confirmed on dilution. No monoclonali ty detected. Ordering Provider: Elisha SINHA Report Released Date/Time: Oct 21, 2024 10:06 AM Reporting Lab: [place] [phone] Performing Lab: [place] [phone] [facility] (SERUM) ALBUMIN/GL OBULIN [MASS RATIO] IN SERUM OR PLASMA 0.9 0.7 - 1.7 10/21 Specimen Type: SERUM Comment: Results confirmed on dilution. No monoclonali ty detected. Ordering Provider: Elisha SINHA Report Released Date/Time: Oct 21, 2024 10:06 AM Reporting Lab: [place] [phone] Performing Lab: [address] [address] [facility] (SERUM) GLOBULIN [MASS/VOLU ME] IN SERUM 4.4 g/dL 2.2 - 3.9 10/21 H Specimen Type: SERUM Comment: Results confirmed on dilution. No monoclonali ty detected. Ordering Provider: Elisha SINHA Report Released Date/Time: Oct 21, 2024 10:06 AM Reporting Lab: [place] [phone] Performing Lab: [address] [address] [facility] (SERUM) PROTEIN.MO NOCLONAL [MASS/VOLU ME] IN SERUM OR PLASMA BY ELECTROPHO RESIS Not Observed g/dL 10/21 Specimen Type: SERUM Comment: Results confirmed on dilution. No monoclonali ty detected. Ordering Provider: Elisha SINHA Report Released Date/Time: Oct 21, 2024 10:06 AM Reporting Lab: [place] [phone] Performing Lab: [address] [address] [facility] (SERUM) IMMUNOELEC TROPHORESI S FOR SERUM OR PLASMA Comment 10/21 Specimen Type: SERUM Comment: Results confirmed on dilution. No monoclonali ty detected. Ordering Provider: Elisha SINHA Report Released Date/Time: Oct 21, 2024 10:06 AM Reporting Lab: [place] [phone] Performing Lab: [address] KAPPA + LAMBDA Lt CHAINS, FREE, Serum KAPPA LIGHT CHAINS.TOÑITO E [MASS/VOLU ME] IN SERUM 71.0 mg/L 3.3 - 19.4 10/21 H Specimen Type: SERUM No comment entered. Ordering Provider: Elisha SINHA Report Released Date/Time: Oct 21, 2024 10:06 AM Reporting Lab: [place] [phone] Performing Lab: [address] KAPPA + LAMBDA Lt CHAINS, FREE, Serum LAMBDA LIGHT CHAINS.TOÑITO E [MASS/VOLU ME] IN SERUM OR PLASMA 59.3 mg/L 5.7 - 26.3 10/21 H Specimen Type: SERUM No comment entered. Ordering Provider: Elisha SINHA Report Released Date/Time: Oct 21, 2024 10:06 AM Reporting Lab: [place] [address] Performing Lab: [address] KAPPA + LAMBDA Lt CHAINS, FREE, Serum KAPPA LIGHT CHAINS.TOÑITO E/LAMBDA LIGHT CHAINS.TOÑITO E [MASS RATIO] IN SERUM 1.20 0.26 - 1.65 10/21 Specimen Type: SERUM No comment entered. Ordering Provider: Elisha SINHA Report Released Date/Time: Oct 21, 2024 10:06 AM Reporting Lab: [place] [phone] Performing Lab: [address] TSH THYROTROPI N [UNITS/VOL UME] IN SERUM [...] 2024 09:54 AM Reporting Lab: [facility] [address] [address] Performing Lab: [facility] [address] [address] [facility] GLYCOHEM OGLOBIN HEMOGLOBIN A1C/HEMOGL OBIN.TOTAL IN BLOOD BY HPLC 5.5 4.4 - 5.6 10/21 Specimen Type: BLOOD Comment: Prediabetes : 5.7%-6.4% Diabetes: >= 6.5% [facility] guidelines for A1c interpretat ion: Glycemic control [...] 9.27. Ref: https://ngs p.org/CAPda ta.asp. The in-house [employer] D-100 analyzer has a historical CV <= 2%. Contact the laboratory for further performance characteris tics of this assay. Ordering Provider: Elisha SINHA Report Released Date/Time: Oct 21, 2024 09:54 AM Reporting Lab: [facility] [address] [address] Performing Lab: [facility] [address] [address] [facility] LIPID PROFILE CHOLESTERO L [MASS/VOLU ME] [...] 2024 09:54 AM Reporting Lab: [facility] [address] [address] Performing Lab: [facility] [address] [address] [facility] LIPID PROFILE TRIGLYCERI DE [MASS/VOLU ME] [...] 2024 09:54 AM Reporting Lab: [facility] [address] [address] Performing Lab: [facility] [address] [address] [facility] LIPID PROFILE CHOLESTERO L IN HDL [...] 2024 09:54 AM Reporting Lab: [facility] [address] [address] Performing Lab: [facility] [address] [address] [facility] LIPID PROFILE CHOLESTERO L IN LDL [MASS/VOLU ME] IN SERUM OR PLASMA BY DIRECT ASSAY 80 mg/dL 0 - 100 04/30 /2025 Specimen Type: PLASMA Comment: Estimated Glomerular Filtration [...] 2024 09:54 AM Reporting Lab: [facility] [address] [address] Performing Lab: [facility] [address] [address] [facility] CBC/PLT LEUKOCYTES [#/VOLUME] IN BLOOD BY AUTOMATED COUNT 7.1 10*3/uL 5.0 - 10.0 10/21 Specimen Type: BLOOD No comment entered. Ordering Provider: Elisha SINHA Report Released Date/Time: Oct 21, 2024 09:54 AM Reporting Lab: [address] [address] Performing Lab: [place] [phone] [place] [address] CBC/PLT ERYTHROCYT ES [#/VOLUME] IN BLOOD BY AUTOMATED COUNT 4.17 10*6/uL 4.6 - 6.2 10/21 L Specimen Type: BLOOD No comment entered. Ordering Provider: Elisha SINHA Report Released Date/Time: Oct 21, 2024 09:54 AM Reporting Lab: [address] [address] Performing Lab: [address] [address] [facility] CBC/PLT HEMOGLOBIN [MASS/VOLU ME] IN BLOOD 13.8 g/dL 14.0 - 18.0 10/21 L Specimen Type: BLOOD No comment entered. Ordering Provider: Elisha SINHA Report Released Date/Time: Oct 21, 2024 09:54 AM Reporting Lab: [address] [address] Performing Lab: [place] [phone] [facility] CBC/PLT HEMATOCRIT [VOLUME FRACTION] OF BLOOD BY AUTOMATED COUNT 40.6 42.0 - 52.0 10/21 L Specimen Type: BLOOD No comment entered. Ordering Provider: Elisha SINHA Report Released Date/Time: Oct 21, 2024 09:54 AM Reporting Lab: [address] [address] Performing Lab: [address] [address] [facility] CBC/PLT MCV [ENTITIC VOLUME] BY AUTOMATED COUNT 97.4 fL 80.0 - 94.0 10/21 H Specimen Type: BLOOD No comment entered. Ordering Provider: Elisha SINHA Report Released Date/Time: Oct 21, 2024 09:54 AM Reporting Lab: [place] [address] Performing Lab: [address] CBC/PLT MCH [ENTITIC MASS] BY AUTOMATED COUNT 33.1 pg 27.0 - 31.0 10/21 H Specimen Type: BLOOD No comment entered. Ordering Provider: Elisha SINHA Report Released Date/Time: Oct 21, 2024 09:54 AM Reporting Lab: [place] [address] Performing Lab: [address] CBC/PLT MCHC [MASS/VOLU ME] BY AUTOMATED COUNT 34.0 g/dL 32.0 - 36.0 10/21 Specimen Type: BLOOD No comment entered. Ordering Provider: Elisha SINHA Report Released Date/Time: Oct 21, 2024 09:54 AM Reporting Lab: [place] [address] Performing Lab: [place] [address] [place] [address] CBC/PLT PLATELETS [#/VOLUME] IN BLOOD 166 10*3/uL 150 - 450 10/21 Specimen Type: BLOOD No comment entered. Ordering Provider: Elisha SINHA Report Released Date/Time: Oct 21, 2024 09:54 AM Reporting Lab: [place] [address] Performing Lab: [address] CBC/PLT PLATELET MEAN VOLUME [ENTITIC VOLUME] IN BLOOD 10.5 fL 9.0 - 13.1 10/21 Specimen Type: BLOOD No comment entered. Ordering Provider: Elisha SINHA Report Released Date/Time: Oct 21, 2024 09:54 AM Reporting Lab: [address] [address] Performing Lab: [address] [address] [facility] CBC/PLT ERYTHROCYT E DISTRIBUTI ON WIDTH [ENTITIC VOLUME] BY AUTOMATED COUNT 13.7 11.0 - 16.0 10/21 Specimen Type: BLOOD No comment entered. Ordering Provider: Elisha SINHA Report Released Date/Time: Oct 21, 2024 09:54 AM Reporting Lab: [address] [address] Performing Lab: [place] [phone] [facility] CBC/PLT NUCLEATED ERYTHROCYT ES/100 ERYTHROCYT ES IN BLOOD 0.0 0.0 - 0.0 10/21 Specimen Type: BLOOD No comment entered. Ordering Provider: Elisha SINHA Report Released Date/Time: Oct 21, 2024 09:54 AM Reporting Lab: [address] [address] Performing Lab: [place] [phone] [facility] PANEL 5 CREATININE [MASS/VOLU ME] IN [...] 2024 09:54 AM Reporting Lab: [facility] [address] [address] Performing Lab: [facility] [address] [address] [facility] PANEL 5 UREA NITROGEN [MASS/VOLU ME] IN SERUM OR PLASMA 15 mg/dL 10/21 Specimen Type: PLASMA Comment: Estimated [...] 2024 09:54 AM Reporting Lab: [facility] [address] [address] Performing Lab: [facility] [address] [address] [facility] PANEL 5 GLUCOSE [MASS/VOLU ME] IN [...] 2024 09:54 AM Reporting Lab: [facility] [address] [address] Performing Lab: [facility] [address] [address] [facility] PANEL 5 SODIUM [MOLES/VOL UME] IN [...] 2024 09:54 AM Reporting Lab: [facility] [address] [address] Performing Lab: [facility] [address] [address] [facility] PANEL 5 POTASSIUM [MOLES/VOL UME] IN SERUM [...] 2024 09:54 AM Reporting Lab: [facility] [address] [address] Performing Lab: [facility] [address] [address] [facility] PANEL 5 CHLORIDE [MOLES/VOL UME] IN [...] 21, 2024 09:54 AM Reporting Lab: [facility] [address] [facility] [address] Performing Lab: [facility] [address] [facility] [address] [facility] PANEL 5 CARBON DIOXIDE, TOTAL [MOLES/VOL UME] IN SERUM OR PLASMA 24 mmol/L - 29 10/21 Specimen Type: PLASMA Comment: Estimated Glomerular [...] 21, 2024 09:54 AM Reporting Lab: [facility] [address] [facility] [address] Performing Lab: [facility] [address] [facility] [address] [facility] PANEL 5 CALCIUM [MASS/VOLU ME] IN [...] 2024 09:54 AM Reporting Lab: [facility] [address] [address] Performing Lab: [facility] [address] [address] [facility] PANEL 5 PROTEIN [MASS/VOLU ME] IN [...] 2024 09:54 AM Reporting Lab: [facility] [address] [address] Performing Lab: [facility] [address] [address] [facility] PANEL 5 ALBUMIN [MASS/VOLU ME] IN [...] 2024 09:54 AM Reporting Lab: [facility] [address] [address] Performing Lab: [facility] [address] [address] [facility] PANEL 5 BILIRUBIN. TOTAL [MASS/VOLU ME] [...] 2024 09:54 AM Reporting Lab: [facility] [address] [address] Performing Lab: [facility] [address] [address] [facility] PANEL 5 ASPARTATE AMINOTRANS FERASE [ENZYMATIC [...] 2024 09:54 AM Reporting Lab: [facility] [address] [address] Performing Lab: [facility] [address] [address] [facility] PANEL 5 ALANINE AMINOTRANS FERASE [ENZYMATIC [...] 2024 09:54 AM Reporting Lab: [facility] [address] [address] Performing Lab: [facility] [address] [address] [facility] PANEL 5 ANION GAP 3 IN [...] 2024 09:54 AM Reporting Lab: [facility] [address] [address] Performing Lab: [facility] [address] [address] [facility] PANEL 5 ALKALINE PHOSPHATAS E [ENZYMATIC [...] 2024 09:54 AM Reporting Lab: [facility] [address] [address] Performing Lab: [facility] [address] [address] [facility] PANEL 5 GLOMERULAR FILTRATION RATE/1.73 SQ [...] 2024 09:54 AM Reporting Lab: [facility] [address] [address] Performing Lab: [facility] [address] [phone] [place] [address] TOTAL PROTEIN PROTEIN [MASS/VOLU ME] IN URINE <12mg/dL 0 - 14 11/28 Specimen Type: URINE No comment entered. Ordering Provider: GRANT CROSS Report Released Date/Time: November 11, 2023 01:14 PM Reporting Lab: [facility] [address] [facility] [address] Performing Lab: [address] [address] [facility] URINALYS IS COLOR OF URINE Light Yellow 11/28 Specimen Type: URINE Comment: Microscopic not indicated Ordering Provider: GRANT CROSS Report Released Date/Time: November 11, 2023 01:14 PM Reporting Lab: [address] [address] Performing Lab: [address] [phone] [place] [address] URINALYS IS APPEARANCE OF URINE Clear 11/28 Specimen Type: URINE Comment: Microscopic not indicated Ordering Provider: GRANT CROSS Report Released Date/Time: November 11, 2023 01:14 PM Reporting Lab: [address] [address] Performing Lab: [address] [address] [facility] URINALYS IS UROBILINOG EN [MASS/VOLU ME] IN URINE BY TEST STRIP Normalmg /dL 11/28 Specimen Type: URINE Comment: Microscopic not indicated Ordering Provider: GRANT CROSS Report Released Date/Time: November 11, 2023 01:14 PM Reporting Lab: [facility] [address] Performing Lab: [address] [address] [facility] URINALYS IS HEMOGLOBIN [PRESENCE] IN URINE BY TEST STRIP Negative 11/28 Specimen Type: URINE Comment: Microscopic not indicated Ordering Provider: GRANT CROSS Report Released Date/Time: November 11, 2023 01:14 PM Reporting Lab: [address] [address] Performing Lab: [address] [address] [facility] URINALYS IS BILIRUBIN. TOTAL [PRESENCE] IN URINE BY TEST STRIP Negative 11/28 Specimen Type: URINE Comment: Microscopic not indicated Ordering Provider: GRANT CROSS Report Released Date/Time: November 11, 2023 01:14 PM Reporting Lab: [address] [address] Performing Lab: [address] [address] [facility] URINALYS IS KETONES [MASS/VOLU ME] IN URINE BY TEST STRIP Negative mg/dL 11/28 Specimen Type: URINE Comment: Microscopic not indicated Ordering Provider: GRANT CROSS Report Released Date/Time: November 11, 2023 01:14 PM Reporting Lab: [address] [address] Performing Lab: [address] [address] [facility] URINALYS IS PROTEIN [MASS/VOLU ME] IN URINE BY TEST STRIP Negative mg/dL 11/28 Specimen Type: URINE Comment: Microscopic not indicated Ordering Provider: GRANT CROSS Report Released Date/Time: November 11, 2023 01:14 PM Reporting Lab: [address] [address] Performing Lab: [address] [address] [facility] URINALYS IS PH OF URINE BY TEST STRIP 6.5 4.5 - 8.0 11/28 Specimen Type: URINE Comment: Microscopic not indicated Ordering Provider: GRANT CROSS Report Released Date/Time: November 11, 2023 01:14 PM Reporting Lab: [address] [id number] Performing Lab: [address] [address] [facility] URINALYS IS NITRITE [PRESENCE] IN URINE BY TEST STRIP Negative 11/28 Specimen Type: URINE Comment: Microscopic not indicated Ordering Provider: GRANT CROSS Report Released Date/Time: November 11, 2023 01:14 PM Reporting Lab: [address] [address] Performing Lab: [place] [id number] [place] [address] URINALYS IS LEUKOCYTE ESTERASE [PRESENCE] IN URINE BY TEST STRIP Negative 11/28 Specimen Type: URINE Comment: Microscopic not indicated Ordering Provider: GRANT CROSS Report Released Date/Time: November 11, 2023 01:14 PM Reporting Lab: [place] [id number] Performing Lab: [place] [id number] URINALYS IS SPECIFIC GRAVITY OF URINE 1.010 1.005 - 1.030 11/28 Specimen Type: URINE Comment: Microscopic not indicated Ordering Provider: GRANT CROSS Report Released Date/Time: November 11, 2023 01:14 PM Reporting Lab: [place] [id number] Performing Lab: [place] [id number] URINALYS IS GLUCOSE [MASS/VOLU ME] IN URINE BY TEST STRIP Negative mg/dL 11/28 Specimen Type: URINE Comment: Microscopic not indicated Ordering Provider: GRANT CROSS Report Released Date/Time: November 11, 2023 01:14 PM Reporting Lab: [address] [address] Performing Lab: [address] [id number] [place] [address] CREATINI NE CREATININE [MASS/VOLU ME] IN URINE 65.3 mg/dL 11/28 Specimen Type: URINE No comment entered. Ordering Provider: GRANT CROSS Report Released Date/Time: November 11, 2023 01:14 PM Reporting Lab: [address] [address] Performing Lab: [facility] [address] [facility] [address] [facility] Vital Signs Combined list of inpatient and outpatient Vital Signs from Department of [facility] and [facility] Affairs, ranging from 12 months to all on record, depending upon the facility. Vital Sign Value Date Comments Source SYSTOLIC BLOOD PRESSURE 153 10/21/2024 09:32:12 [facility] DIASTOLIC BLOOD PRESSURE 84 10/21/2024 09:32:12 [facility] PULSE OXIMETRY 95 10/21/2024 09:32:12 [facility] WEIGHT 171 10/21/2024 09:32:12 [place] [facility] BMI 28 kg/m2 10/21/2024 09:32:12 [place] [facility] PAIN 0 10/21/2024 09:32:12 [place] [facility] TEMPERATURE 98 10/21/2024 09:32:12 [facility] PULSE 60 10/21/2024 09:32:12 [facility] Encounters Combined list of: 1) Encounters from Department of Veterans Affairs facilities going backup to the last 18 months, not all [place] inpatient encounters are included; 2) Encounters from the Department of [facility] facilities going backup to 280 months. Location Location Details Encounter Type Encounter Number Reason For Visit Attending Provider ADM Date DC Date Status Disposition Source [facility] Outpatient Encounter [id number] 05/31 [place] [facility] [place] HC PRO PHONE CALL 5-10 MIN [id number] Diagnos is: ICD-10- CM Z71.89 Other specifi ed pastoral counselor ME RAYMON Flores 06/21 [place] [facility] [place] Outpatient Encounter [id number] 09/01 [place] [facility] Outpatient Encounter [id number] 09/16 [place] OFFICE O/P EST MOD 30 MIN [id number] Diagnos is: ICD-10- CM I10 Essenti al (primar y) hyperte GRANT Vega 10/21 [place] [facility] [place] HC PRO PHONE CALL 5-10 MIN [id number] Diagnos is: ICD-10- CM Z71.89 Other specifi ed pastoral counselor ME RAYMON Flores 10/22 [place] [facility] [place] HC PRO PHONE CALL 5-10 MIN [id number] Diagnos is: ICD-10- CM Z71.89 Other specifi ed pastoral counselor ME RAYMON Flores 10/24 [place] [facility] OFFICE O/P NEW SF 15 MIN [id number] Diagnos is: ICD-10- CM 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 LYNN Lenz 10/24 [place] [facility] HC PRO PHONE CALL 5-10 MIN [id number] Diagnos is: ICD-10- CM Z71.89 Other specifi ed pastoral counselor ME RAYMON Flores 11/04 [place] [facility] [place] OFF/OP EST MAY X REQ PHY/QHP [id number] Diagnos is: ICD-10- CM Z71.89 Other specifi ed pastoral counselor ya MEYERAND NILO F 11/13 [place] [facility] [place] Outpatient Encounter [id number] 03/08 [place] [facility] Outpatient Encounter [id number] 09/16 [place] Outpatient Encounter [id number] 10/21 [place] [facility] [place] OFFICE O/P EST MOD 30 MIN [id number] Diagnos is: ICD-10- CM I10 Essenti al (primar y) hyperte nsion MARTIN SINHA C 10/21 [place] [facility] Outpatient Encounter [id number] 10/21 [place] Outpatient Encounter [id number] 10/22 [place] [facility] Social History Combined list of available smoking, tobacco, and other social history from Department of Defense and [facility] Affairs facilities. Social History Type Response Date Comment [facility] e Tobacco smoking status NHIS MS-TOBACCO QUIT 15 YRS OR MORE 10/22/2023 [facility] History of tobacco use MS-TOBACCO FORMER USER 10/22/2023 [facility] History of tobacco use MS-TOBACCO FORMER USER 10/19/2022 [facility] History of tobacco use MS-TOBACCO FORMER USER 11/30/2020 [facility] History of tobacco use MS-TOBACCO QUIT 15 YRS OR MORE 10/12/2019 [facility] History of tobacco use MS-TOBACCO QUIT 15 YRS OR MORE 09/18/2018 [facility] History of tobacco use V9 QUIT TOBACCO >7 YEARS AGO 10/29/2016 [facility] History of tobacco use V9 QUIT TOBACCO >7 YEARS AGO 06/03/2015 [facility] History of tobacco use V9 QUIT TOBACCO >7 YEARS AGO 04/24/2013 [facility] History of tobacco use V9 QUIT TOBACCO >7 YEARS AGO 12/13/2011 [facility] History of tobacco use V9 QUIT TOBACCO >7 YEARS AGO 11/30/2010 [facility] Advance Directives List of completed, amended, or rescinded Advance Directives on record at Department of [facility] facilities. An actual copy of the Directive is not included. Date Advance Directive Provider Source 02/01/2012 ADVANCE DIRECTIVE [facility]ULINE DAWN [facility] 01/25/2012 ADVANCE DIRECTIVE DISCUSSION MURIEL ZHANG [facility]
--- NOTE | 2024-11-03 13:30 | MR_ITS ---
FINAL REPORT CLINICAL HISTORY: DIPLOPIA 6-8 months FINDINGS: Multiplanar MR imaging of the brain was performed without and with contrast. There are few tiny foci of abnormal signal in the deep white matter bilaterally. The ventricular size is within normal limits. There is no evidence of shift of the midline structures. No area of abnormal restricted diffusion is identified. In the inferior left frontal lobe is an abnormal area of enhancement measuring 2.4 x 1.2 cm in AP and transverse dimension and measures up to 1.3 cm in craniocaudal dimension. Finding is best seen on image 8, series 11. It is unclear if this is intra or extra axial process, favor intra-axial process based upon sagittal images. There is mucoperiosteal thickening in the frontal, ethmoid, and right maxillary sinuses consistent with chronic sinusitis. IMPRESSION: Abnormal enhancement in the inferior left frontal lobe, could be infectious, inflammatory, or neoplastic. Etiology remains obscure. Comparison with any available prior exam may be of value. If no prior exists, recommend follow-up MRI in 2 weeks. Chronic sinusitis. Reviewed, Interpreted and Dictated by Braden Ness MD Transcribed by Alba Kerr Authenticated and [facility]
--- OUTSIDE RECORDS SUMMARY | 2024-11-03 13:30 | XMS_ITS | Encounter Summary ---
Author Name [facility] [place] Address [address] [place] [address] Care Team Providers Care Test Engineering Technician Name Role Phone MARTIN SINHA Primary [...] Name Patient's Relationship to Policy Magallanes [facility] (WNR) MEDICARE ADVANTAGE [facility](W NR) Jun 24, 2012 [id number] ZHENGLEENARAFFY GUEVARA PATIENT MEDICARE PART D (WNR) MEDICARE (M) PART D Jun 24, 2012 PART D [id number] RAFFY MATHEW PATIENT MEDICARE PART D (WNR) MEDICARE (M) PART D Jun 24, 2012 PART D [id number] ANGELRAFFY GUEVARA PATIENT Selected Encounter This section includes the information on record at [place] for the Encounter. Date/Time Encounter Type Encounter Description Reason Provider Source Oct 21, 2024 09:30 AM OFFICE O/P EST MOD 30 MIN PRIMARY CARE/MEDICINE ICD-10-CM I10 Essential (primary) hypertension ALLISON SINHA I[facility]i Encounter Template Text not used by [place] Assessments - Encounter Diagnoses This section includes the primary and secondary diagnoses documented for the Encounter. Date/Time Primary/Secondary Diagnosis Diagnosis Name Provider Source Oct 21, 2024 10:08 AM PRIMARY Essential (primary) hypertension [facility] Oct 21, 2024 10:08 AM SECONDARY Gastro-esophageal reflux disease without esophagitis LINN SINHA [facility] Oct 21, 2024 10:08 AM SECONDARY Hyperlipidemia, unspecified LINN SINHA [facility] Lab Results: +/- 30 days of the encounter This section includes the Chemistry and Hematology Lab Results on record with [place] for the patient. Radiology Reports and Pathology Reports are provided separately, in subsequent sections. Lab Results This section contains the Chemistry/Hematology Results that were resulted 30 days before or 30 daysafter the date of the Encounter. Date/Time Source Result Type Result - Unit Interpretation Reference Range Specimen Type Comment Oct 21, 2024 10:12 AM [facility] N [facility] (SERUM) SERUM Specimen Type: SERUM Comment: Results confirmed on dilution. No monoclonality detected. Ordering Provider: CONI SINHA Report Released Date/Time: Oct 21, 2024 10:06 AM Reporting Lab: [facility] [address] [facility] [address] Performing Lab: [facility] [address] [facility] [address] .ALBUMIN ELEC 3.6 g/dL 2.9-4.4 .ALPHA 1 [...] INTERPRETATION Comment Oct 21, 2024 10:12 AM [facility] KAPPA + LAMBDA Lt CHAINS, FREE, Serum SERUM S pecimen Type: SERUM No comment entered. Ordering Provider: MARTIN SINHA Report Released Date/Time: Oct 21, 2024 10:06 AM Reporting Lab: [facility] [address] [facility] [address] Performing Lab: [facility] [address] [facility] [address] .Free Holland Patent Lt Chains, S 71.0 mg/L H 3.3-1 9.4 .Free Lambda Lt Chains, S 59.3 mg/L H 5.7- 26.3 .Hol[place] Patent/Lambda Ratio, S 1.20 0.26-1.65 Oct 21, 2024 10:12 AM [facility] TSH PLASMA Specimen Type: PLASM A Comment: Estimated [...] Oct 21, 2024 09:54 AM Reporting Lab: [address] [address] Performing Lab: [address] [address] TSH 0.9451 m[IU]/mL 0.3500-4.9400 Oct 21, 2024 10:12 AM [facility] GLYCOHEMOGLOBIN BLOOD Specimen Type: BLOOD Comment: Prediabetes: 5.7%-6.4% Diabetes: >= 6.5% [facility] guidelines for A1c interpretation: Glycemic control targets are based on Shared Decision Making between clinicians and patients. Criteria used to establish an A1c target recommendation can be found at https://www.[place].gov/qualityandpatientsafety/ and include the use of result accuracy [...] 8.73 and 9.27. Ref: https://ngsp.org/CAPdata.asp. The in-house [employer] D-100 analyzer has a historical CV <= 2%. Contact the laboratory for further performance characteristics of this assay. Ordering Provider: MARTIN SINHA Report Released Date/Time: Oct 21, 2024 09:54 AM Reporting Lab: [address] [address] Performing Lab: [place] [id number] GLYCOHEMOGLOBIN 5.5 4.4-5.6 Oct 21, 2024 10:12 AM [facility] LIPID PROFILE PLASMA Specimen Type: PLASM A [...] Oct 21, 2024 09:54 AM Reporting Lab: [facility] [address] [address] Performing Lab: [address] [address] CHOLESTEROL 145 mg/dL 0-199 TRIGLYCERIDE 54 mg/dL 0-149 HDL CHOLESTEROL 61 mg/dL 40-69 DIRECT LDL CHOL. 80 mg/dL 0-100 Oct 21, 2024 10:12 AM [facility] CBC/PLT BLOOD Specimen Type: BLOOD No comment entered. Ordering Provider: MARTIN SINHA Report Released Date/Time: Oct 21, 2024 09:54 AM Reporting Lab: [address] [address] Performing Lab: [address] [address] WBC 7.1 10*3/uL 5.0-10.0 RBC 4.17 10*6/uL L 4.6-6.2 HGB 13.8 g/dL L 14.0-18.0 HCT 40.6 L 42.0-52.0 MCV 97.4 fL H 80.0-94.0 MCH 33.1 pg H 27.0-31.0 MCHC 34.0 g/dL 32.0-36.0 PLT 166 10*3/uL 150-450 MPV 10.5 fL 9.0-13.1 RDW 13.7 11.0-16.0 NRBC 0.0 0.0-0.0 Oct 21, 2024 10:12 AM [facility] PANEL 5 PLASMA Specimen Type: PLASM A [...] Oct 21, 2024 09:54 AM Reporting Lab: [address] [address] Performing Lab: [address] [address] CREATININE 1.28 mg/dL H 0.72-1.25 UREA NITROGEN [...] PHOS 100 U/L 40-150 eGFR (CKD-EPI) 58 Vital Signs: All taken on the encounter date This section contains inpatient and outpatient Vital Signs collected on the date of the Encounter. Date/Time Temperature Pulse Blood Pressure Respiratory Rate SP02 Pain Height Weight Body Mass Index Source Oct 21, 2024 10:09 AM 138/72 [place] [facility] Oct 21, 2024 09:32 AM 163/77 [place] [facility] Oct 21, 2024 09:32 AM 98 60 153/84 95 0 171 28 [place] [facility] Social History: Smoking Status (Most current) and Tobacco Use (All prior to encounter date) This section includes the most current, and the historical, smoking and tobacco- related health factors from the [place] facility where the Encounter took place. Current Smoking Status This section includes the most current smoking, or tobacco-related health factor, from the [place] facility where the Encounter took place. Date/Time Current Smoking Status Comment Nubia ity Oct 22, 2023 01:00 PM VA-TOBACCO QUIT 15 YRS OR MORE [facility] Tobacco Use History This section includes a history of the smoking, or tobacco-related health factors, that were collected on or before the date of the Encounter. The data comes from the [place] facility where the Encounter took place. Date/Time Smoking Status/Tobacco Use Comment F acility Oct 22, 2023 01:00 PM VA-TOBACCO QUIT 15 YRS OR MORE [facility] Oct 19, 2022 09:30 AM VA-TOBACCO FORMER USER [facility] Oct 19, 2022 09:30 AM VA-TOBACCO QUIT 15 YRS OR MORE [facility] Nov 30, 2020 11:30 AM VA-TOBACCO FORMER USER [facility] Nov 30, 2020 11:30 AM VA-TOBACCO QUIT 15 YRS OR MORE [facility] Oct 12, 2019 04:30 PM VA-TOBACCO FORMER USER [facility] Oct 12, 2019 04:30 PM VA-TOBACCO QUIT 15 YRS OR MORE [facility] Sep 18, 2018 10:47 AM VA-TOBACCO FORMER USER [facility] Sep 18, 2018 10:47 AM VA-TOBACCO QUIT 15 YRS OR MORE [facility] October 29, 2016 09:16 AM V9 QUIT TOBACCO >7 YEARS AGO [facility] Jun 03, 2015 02:18 PM V9 QUIT TOBACCO >7 YEARS AGO [facility] Apr 24, 2013 09:05 AM V9 QUIT TOBACCO >7 YEARS AGO [facility] Dec 13, 2011 04:40 PM V9 QUIT TOBACCO >7 YEARS AGO [facility] Nov 30, 2010 07:21 AM V9 QUIT TOBACCO >7 YEARS AGO [facility] Advance Directives: All historical and current Section Date Range: From patient's date of to the date document was created. This section includes ALL of a patient's completed or amended [place] Advance and Rescinded Directives. The entries below indicate that a directive exists for the patient, but an actual copy is not included with this document. The data comes from all [place] facilities. Date Advance Directives Provider Source Feb 01, 2012 ADVANCE DIRECTIVE PAULINE DAWN [facility] Jan 25, 2012 ADVANCE DIRECTIVE DISCUSSION MURIEL ZHANG [facility] Encounter Notes: All associated encounter notes This section contains the clinical notes associated to the Encounter. Date/Time Encounter Note(s) Provider Source Oct 21, 2024 02:42 PM PRIMARY CARE NOTE: LOCAL TITLE: Pc Chart Review Note STANDARD TITLE: PRIMARY CARE NOTE DATE OF NOTE: OCT 21, 2024@14:42 ENTRY DATE: OCT 21, 2024@14:42:46 AUTHOR: MARTIN SINHA EXP COSIGNER: URGENCY: STATUS: COMPLETED Lab results reviewed. CKD : Pt to avoid nephrotoxic agents. Please notify patient and send Lab results letter. Thanks. /deric/ MARTIN SINHA MD PRIMARY CARE PHYSICIAN Signed: 10/21/2024 14:43 Receipt Acknowledged By: 10/22/2024 11:11 /deric/ NADIRA PEARCE planting machine operator MARTIN SINHA [facility] Oct 21, 2024 10:11 AM MEDICATION MGT NOTE: LOCAL TITLE: OUTPATIENT ESSENTIAL MEDICATION LIST FOR REVIEW (EM STANDARD TITLE: MEDICATION MGT NOTE DATE OF NOTE: OCT 21, 2024@10:11 ENTRY DATE: OCT 21, 2024@10:11:17 AUTHOR: MARTIN SINHA EXP COSIGNER: URGENCY: STATUS: COMPLETED Review of medications include: Patient allergies (Remote and Local) and active and pending prescriptions dispensed from this [facility] (local) and dispensed from another [place] or DoD facility (remote and pending) as well as [...] INFLIXIMAB INJ,LYPHL Directions: INTO THE VEIN DIRECTED [id number] Status: ACTIVE METOPROLOL SUCCINATE 50MG SA TAB Directions: 25MG MOUTH DAILY Status: ACTIVE OMEPRAZOLE 20MG EC CAP Directions: 20MG MOUTH DAILY Status: ACTIVE ROSUVASTATIN CA 40MG TAB Directions: 20MG MOUTH AT BEDTIME Status: ACTIVE OUTPATIENT MEDICATIONS (LOCAL)WITHIN 90 DAYS: No local medications found. DISCONTINUED OUTPATIENT MEDICATIONS (LOCAL) WITHIN 90 DAYS: No local medications found. CLINIC MEDICATIONS (LOCAL): No local medications found. /deric/ MARTIN SINHA MD PRIMARY CARE PHYSICIAN Signed: 10/21/2024 10:11 MARTIN SINHA [facility] Oct 21, 2024 09:50 AM PRIMARY CARE NOTE: LOCAL TITLE: PC PROGRESS NOTE STANDARD TITLE: PRIMARY CARE NOTE DATE OF NOTE: OCT 21, 2024@09:50 ENTRY DATE: OCT 21, 2024@09:51 AUTHOR: MARTIN SINHA EXP COSIGNER: URGENCY: STATUS: COMPLETED ID: 79 year old MALE Chief Complaint: Ongoing management of active/chronic medical problems HPI/Problem List: HTN - c/w meds (non va), reports nl home BP, follwoed by non va pcp, pt opts to ct to f/u with non va pcp HLP - on statin Gerd - asx. h/o Crohn's - on Remicade, followed by non va GI. 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 Temperature 98 F [36.7 C] (10/21/2024 09:32) Pulse 60 (10/21/2024 09:32) Respiration 12 (10/19/2022 09:34) B/P 163/77 (10/21/2024 09:32), Rpt 138/72 Height 66 in [167.6 cm] (10/19/2022 09:34) Weight 171 lb [77.56 kg] (10/21/2024 09:32) Pain 0 (10/21/2024 09:32) ROS: General: Negative. Eyes : Negative. Ent/Oral : Negative. CVS : No chest pain or palpitations. Respiratory : No dyspnea or wheezing. GI : Negative : Negative. Neuro : No c/o focal weakness. Musculoskeletal : Arthralgias+ Skin: Negative. Psychiatric: No acute symptoms. Physical Exam : Alert and oriented x 3. EYES : Ocular movements normal. Normal conjunctivae and sclerae. ENT : No mastoid tenderness. Oropharynx : Normal. NECK: Supple. RESPIRATORY : Normal respirations. CTA b/l. CVS : Palpation : Normal. Auscultation : S1 S2 +. ABDOMEN : Palpation :Soft, No tenderness. Auscultation : normal BS. NEURO : No gross deficits. EXT : No edema or calf tenderness. MUSCULOSKELETAL : Gait normal. No erythema, swelling or tenderness. PSYCH: Affect appropriate. A/P : 1. HTN : rec close monitoring, to ct CCB, BB and diuretic. 2. HLP : On statin. Lipid panel ordered. 3. GERD : Stable. 4. HM : h/o nl non va Colonoscopy, followed by non va GI. Vaccinations : as in cprs. I have spent 30 mts, entering clinical information into CPRS, reviewing history, performing an exam and evaluation, interpret results, counselling pateint/family/caregiver, reviewing imaging studies/labs, ordering meds/tests/procedures, referring and communicating with consulting health senior resident care director and care coordination. The outpatient Essential Medication list for review (EMLR) was reviewed with the patient/caregiver.Discrepanci es were corrected or sent to the ordering provider. Patient was provided a printed corrected/reconciled medication list. Management plan reviewed with Pt, who agrees with the plan. Patient/caregiver voiced an understanding of the topics covered/discussed in today's visit. RTC : 10 months. Allergies: Patient has answered NKA Medications: Active and Recently Outpatient Medications (including Supplies): Active Non-VA Medications Status 1) Non-VA AMLODIPINE BESYLATE 2.5MG TAB 2.5MG MOUTH DAILY ACTIVE 2) Non-VA ASPIRIN 81MG EC TAB 81MG MOUTH DAILY ACTIVE 3) Non-VA HYDROCHLOROTHIAZIDE 12.5MG CAP 12.5MG MOUTH DAILY ACTIVE 4) Non-VA INFLIXIMAB INJ,LYPHL INTO THE VEIN DIRECTED ACTIVE [id number] 5) Non-VA METOPROLOL SUCCINATE 50MG SA TAB 25MG MOUTH DAILY ACTIVE 6) Non-VA OMEPRAZOLE 20MG EC CAP 20MG MOUTH DAILY ACTIVE 7) Non-VA ROSUVASTATIN CA 40MG TAB 20MG MOUTH AT BEDTIME ACTIVE HTN Assess for Elevated BP>=140/90: Repeat blood pressure: 138/72 Avg Risk Colorectal Cancer Screen: AVERAGE RISK colorectal cancer screening is due based on information available to this clinical reminder Patient has arranged or is choosing to arrange this care independent of and without assistance from this [place]. Colonoscopy GAP Reminder: Recommendations are needed in the clinical reminder system following the patient's most recent colorectal cancer screening/surveillance test (Colonoscopy, Sigmoidoscopy or CT Colonography) Patient has arranged or is choosing to arrange this testing independent of and w/out assistance from this [place] Patient is at average risk for colorectal cancer. /deric/ MARTIN SINHA MD PRIMARY CARE PHYSICIAN Signed: 10/21/2024 10:11 MARTIN SINHA [facility] Oct 21, 2024 09:23 AM PRIMARY CARE NURSING NOTE: LOCAL TITLE: [place] [facility] Tech/survey project manager Note STANDARD TITLE: PRIMARY CARE NURSING NOTE DATE OF NOTE: OCT 21, 2024@09:23 ENTRY DATE: OCT 21, 2024@09:23:58 AUTHOR: DENNIS RICHARD COSIGNER: URGENCY: STATUS: COMPLETED The patient was given a list of his current medications, instructed to review and discuss any changes or problems with their provider. Patient advised to carry a list of current medications and any allergies with them in the event of emergency situations. Yes - [place]on/Caregiver verbalized understanding of topics discussed and education provided Alcohol Use Screen (AUDIT-C): Alcohol Screen: SCREEN [...] Not at all Suicide Screen: C-SSRS Screening Victor-Suicide Severity Rating Scale (C-SSRS Screener) 1. Over the past month, have you [...] their sexual orientation as: Straight or Heterosexual Influenza Immunization: The patient has received the seasonal influenza vaccine for the current season at another location. Documented: INFLUENZA, UNSPECIFIED FORMULATION Historical Date Administered: Mar 08, 2024 Outside Location: Civilian doctor Information Source: FROM PATIENT'S RECALL COVID-19 Immunization: Refused Moderna Monovalent COVID-19 vaccine Immunization: COVID-19 (MODERNA), MRNA, LNP-S, PF, 50 MCG/0.5 ML (AGES 12+ YEARS) Refusal Reason: PATIENT DECISION Patient refuses all immunization(s) in the COVID-19 group Date Documented: 10/21/24 09:26 /deric/ DENNIS RICHARD INTERMEDIATE CAST IRON DIPPER Signed: 10/21/2024 09:31 DENNIS RICHARD [facility]
--- OUTSIDE RECORDS SUMMARY | 2024-11-03 13:30 | XMS_ITS | Encounter Summary ---
Author Name [facility] [place] [place] Organization [facility] [place] [place] Address [address] [place] [id number] Care Team Providers Care Hoe Worker Name Role Phone MARTIN SINHA Primary Care [...] Name Patient's Relationship to Policy Magallanes HUMANA [facility] (WNR) MEDICARE ADVANTAGE [facility](W NR) Jun 24, 2012 [id number] RAFFY MATHEW PATIENT MEDICARE PART D (WNR) MEDICARE (M) PART D Jun 24, 2012 PART D [id number] RAFFY MATHEW PATIENT MEDICARE PART D (WNR) MEDICARE (M) PART D Jun 24, 2012 PART D [id number] LIZBETHRAFFY SUMNER PATIENT Selected Encounter This section includes the information on record at [place] for the Encounter. Date/Time Encounter Type Encounter Description Reason Pro vider Source October 22, 2024 11:05 AM Outpatient Encounter PRIMARY CARE/MEDICINE IHE Encounter Template Text not used by [facility] Lab Results: +/- 30 days of the encounter This section includes the Chemistry and Hematology Lab Results on record with [place] for the patient. Radiology Reports and Pathology Reports are provided separately, in subsequent sections. Lab Results This section contains the Chemistry/Hematology Results that were resulted 30 days before or 30 daysafter the date of the Encounter. Date/Time Source Result Type Result - Unit Interpretation Reference Range Specimen Type Comment Oct 21, 2024 10:12 AM [facility] N BOOKER (SERUM) SERUM Specimen Type: SERUM Comment: Results confirmed on dilution. No monoclonality detected. Ordering Provider: CONI SINHA Report Released Date/Time: Oct 21, 2024 10:06 AM Reporting Lab: [address] [address] Performing Lab: [address] [address] .ALBUMIN ELEC 3.6 g/dL 2.9-4.4 .ALPHA 1 [...] Oct 21, 2024 10:12 AM [facility] KAPPA + LAMBDA Lt CHAINS, FREE, Serum SERUM S pecimen Type: SERUM No comment entered. Ordering Provider: MARTIN SINHA Report Released Date/Time: Oct 21, 2024 10:06 AM Reporting Lab: [address] [address] Performing Lab: [address] [address] .Free Omega Lt Chains, S 71.0 mg/L H 3.3-1 9.4 .Free Lambda Lt Chains, S 59.3 mg/L H 5.7- 26.3 .Omega/Lambda Ratio, S 1.20 0.26-1.65 Oct 21, 2024 10:12 AM [facility] PLASMA Specimen Type: PLASM A Comment: Estimated [...] Oct 21, 2024 09:54 AM Reporting Lab: [address] [address] Performing Lab: [address] [address] TSH 0.9451 m[IU]/mL 0.3500-4.9400 Oct 21, 2024 10:12 AM [facility] GLYCOHEMOGLOBIN BLOOD Specimen Type: BLOOD Comment: Prediabetes: 5.7%-6.4% Diabetes: >= 6.5% [facility] guidelines for A1c interpretation: Glycemic control targets are based on Shared Decision Making between clinicians and patients. Criteria used to establish an A1c target recommendation can be found at https://www.me.gov/qualityandpatientsafety/ and include the use of result accuracy [...] 8.73 and 9.27. Ref: https://ngsp.org/CAPdata.asp. The in-house [employer] D-100 analyzer has a historical CV <= 2%. Contact the laboratory for further performance characteristics of this assay. Ordering Provider: MARTIN SINHA Report Released Date/Time: Oct 21, 2024 09:54 AM Reporting Lab: [address] [address] Performing Lab: [address] [address] GLYCOHEMOGLOBIN 5.5 4.4-5.6 Oct 21, 2024 10:12 AM [facility] LIPID PROFILE PLASMA Specimen [...] Oct 21, 2024 09:54 AM Reporting Lab: [address] [address] Performing Lab: [address] [address] CHOLESTEROL 145 mg/dL 0-199 TRIGLYCERIDE 54 mg/dL 0-149 HDL CHOLESTEROL 61 mg/dL 40-69 DIRECT LDL CHOL. 80 mg/dL 0-100 Oct 21, 2024 10:12 AM [facility] CBC/PLT BLOOD Specimen Type: BLOOD No comment entered. Ordering Provider: MARTIN SINHA Report Released Date/Time: Oct 21, 2024 09:54 AM Reporting Lab: [address] [address] Performing Lab: [address] [address] WBC 7.1 10*3/uL 5.0-10.0 RBC 4.17 10*6/uL L 4.6-6.2 HGB 13.8 g/dL L 14.0-18.0 HCT 40.6 L 42.0-52.0 MCV 97.4 fL H 80.0-94.0 MCH 33.1 pg H 27.0-31.0 MCHC 34.0 g/dL 32.0-36.0 PLT 166 10*3/uL 150-450 MPV 10.5 fL 9.0-13.1 RDW 13.7 11.0-16.0 NRBC 0.0 0.0-0.0 Oct 21, 2024 10:12 AM [facility] PANEL 5 PLASMA Specimen [...] Oct 21, 2024 09:54 AM Reporting Lab: [address] [address] Performing Lab: [address] [address] CREATININE 1.28 mg/dL H 0.72-1.25 UREA NITROGEN [...] PHOS 100 U/L 40-150 eGFR (CKD-EPI) 58 Social History: Smoking Status (Most current) and Tobacco Use (All prior to encounter date) This section includes the most current, and the historical, smoking and tobacco- related health factors from the [place] facility where the Encounter took place. Current Smoking Status This section includes the most current smoking, or tobacco-related health factor, from the [place] facility where the Encounter took place. Date/Time Current Smoking Status Comment Nubia ity Oct 22, 2023 01:00 PM [place]-TOBACCO QUIT 15 YRS OR MORE [facility] Tobacco Use History This section includes a history of the smoking, or tobacco-related health factors, that were collected on or before the date of the Encounter. The data comes from the [place] facility where the Encounter took place. Date/Time Smoking Status/Tobacco Use Comment F aczaki Oct 22, 2023 01:00 PM VA-TOBACCO QUIT [...] ALL of a patient's completed or amended [place] Advance and Rescinded Directives. The entries below indicate that a directive exists for the patient, but an actual copy is not included with this document. The data comes from all [place] facilities. Date Advance Directives Provider Source Feb 01, 2012 ADVANCE DIRECTIVE PAULINE DAWN [facility] Jan 25, 2012 ADVANCE DIRECTIVE DISCUSSION MURIEL ZHANG [facility] Encounter Notes: All associated encounter notes This section contains the clinical notes associated to the Encounter. Date/Time Encounter Note(s) Provider Source October 22, 2024 11:05 AM PRIMARY CARE LETTERS: LOCAL TITLE: PC LETTER TEST RESULTS STANDARD TITLE: PRIMARY CARE LETTERS DATE OF NOTE: OCTOBER 22, 2024@11:05 ENTRY DATE: OCTOBER 22, 2024@11:05:47 AUTHOR: NADIRA PEARCE EXP COSIGNER: URGENCY: STATUS: COMPLETED [facility] [address] [place] [address] Mr. RAFFY MATHEW [address] [place] [address] [place] [address] OCTOBER 22, 2024 Dear Mr. RAFFY MATHEW Below are the results of your lab work. Please note that your creatinine level is high. This is a marker for kidney health. Dr. Sinha recommends that you avoid things that are toxic to the kidneys. I have included information that I hope you find helpful. Please call us if you have questions or problems. You can reach us at (toll free number) or [phone] (local number). If you are enrolled in [employer], and utilize those services, you may prefer to contact us by secure message. Thank you for your service to our Country. We are honored to be able to provide medical care to you. Recent labwork Collection DT Specimen Test Name Result Units Ref Range 10/21/2024 10:12 BLOOD !! GLYCOHEMOGLOBIN 5.5 % 4.4 - 5.6 10/21/2024 10:12 BLOOD WBC 7.1 K/cmm 5.0 - 10.0 RBC 4.17 L M/cmm 4.6 - 6.2 HGB 13.8 L g/dL 14.0 - 18.0 HCT 40.6 L % 42.0 - 52.0 MCV 97.4 H fL 80.0 - 94.0 MCH 33.1 H pg 27.0 - 31.0 MCHC 34.0 g/dL 32.0 - 36.0 RDW 13.7 % 11.0 - 16.0 PLT 166 K/cmm 150 - 450 MPV 10.5 fL 9.0 - 13.1 NRBC 0.0 % 0.0 - 0.0 10/21/2024 10:12 PLASMA!! CHOLESTEROL 145 mg/dL 0 - 199 !! TRIGLYCERIDE 54 mg/dL 0 - 149 !! HDL CHOLESTEROL 61 mg/dL 40 - 69 !! DIRECT LDL CHOL. 80 mg/dL 0 - 100 !! SODIUM 140 mmol/L 136 - 145 !! POTASSIUM 4.4 mmol/L 3.5 - 5.1 !! CHLORIDE 108 H mmol/L 98 - 107 !! CO2 24 mmol/L 22 - 29 !! ANION GAP 8.0 mEq/L 3 - 19 !! GLUCOSE 100 mg/dL 74 - 100 !! UREA NITROGEN 15 mg/dL 9 - 25 !! CREATININE 1.28 H mg/dL 0.72 - 1.25 !! eGFR (CKD-EPI) 58 SEE EVAL !! CALCIUM 9.4 mg/dL 8.4 - 10.2 !! TOTAL PROTEIN 9.0 H g/dL 6.4 - 8.3 !! ALBUMIN 4.1 g/dL 3.5 - 5.2 !! TOTAL BILIRUBIN 0.8 mg/dL 0.2 - 1.2 !! AST 22 U/L 5 - 34 !! ALT 18 U/L 0 - 55 !! ALK PHOS 100 U/L 40 - 150 !! TSH 0.9451 mIU/mL 0.3500 - 4.9400 What Meds Might Hurt My Kidneys? Antibiotics Diuretics Non-Steroidal Anti-Inflammatory Drugs (NSAIDs) Proton Pump Inhibitors (PPIs) Supplements Laxatives Your kidneys get rid of waste in your body and help you hold on to the right amount of fluid. They also send out hormones that keep your blood pressure steady, and they play a role in making red blood cells. They even make a form of vitamin D thats good for your bones. Some medications can make those things hard for your kidneys to do and keep them from working the way they should. Antibiotics These drugs affect your kidneys in different ways. For example, some can make crystals that don't break down and can block your urine flow. Others have substances that can damage certain kidney cells when they try to filter them out. Some people also have allergic reactions to antibiotics that can affect their kidneys. All these things are more likely to happen if you take antibiotics for a long time or your dose is very high. Diuretics Doctors use these medicines, also known as water pills, to treat high blood pressure and some kinds of swelling. They help your body get rid of extra fluid. But they can sometimes dehydrate you, which can be bad for your kidneys. Non-Steroidal Anti-Inflammatory Drugs (NSAIDs) Whether they're kwhh-byi-bejawsy -- like aspirin, ibuprofen (Advil, Motrin, Nuprin), or naproxen (Aleve, Anaprox, Naprosyn) -- or prescribed by your doctor, you shouldnt use them regularly for a long time or take high doses of them. Overuse of pain meds causes up to 5% of chronic kidney failure cases every year. Proton Pump Inhibitors (PPIs) These medications (Aciphex, Nexium, Prilosec, Prevacid) are used to treat heartburn, ulcers, and acid reflux. They lower the amount of acid in your stomach, but studies have shown that taking them for a long time can raise your chances of serious kidney problems and possibly lead to kidney failure. Other heartburn medicines called H2 blockers (Pepcid, Tagamet, Zantac) are less likely to cause these issues. If you take a PPI regularly, ask your doctor if switching to another drug might be better for you. Supplements Some of these, including wormwood oil, may not be good for your kidneys. Tell your doctor about every supplement you take to make sure they're helping and not hurting. Laxatives Jegt-gce-xfbcdqb or prescription versions can leave crystals in your kidneys that may damage them or cause failure. This is especially true for ones that contain oral sodium phosphate, or OSP. 1302-9126 [facility], [address] [place] [address], [place] [address]. All rights reserved. This information is not intended as a substitute for professional medical care. Always follow your healthcare professional's instructions. Sincerely, /deric/ NADIRA PEARCE medical stenographer Patient Record Number [id number] NADIRA PEARCE [facility]
--- OUTSIDE RECORDS SUMMARY | 2024-11-03 13:30 | XMS_ITS | Encounter Summary ---
Author Name [facility] Organization [facility] [place] Address [address] [place] [address] Care Team Providers Care Dessert Cup Machine Feeder Name Role Phone MARTIN SINHA Primary Care [...] Policy Magallanes HUMANA MCR (WNR) MEDICARE ADVANTAGE [facility](W NR) Jun 24, 2012 [id number] RAFFY MATHEW PATIENT MEDICARE PART D (WNR) MEDICARE (M) PART D Jun 24, 2012 PART D [id number] RAFFY MATHEW PATIENT MEDICARE PART D (WNR) MEDICARE (M) PART D Jun 24, 2012 PART D [id number] ANGELRAFFY GUEVARA PATIENT Selected Encounter This section includes the information on record at [place] for the Encounter. Date/Time Encounter Type Encounter Description Reason Pro vider Source Oct 21, 2024 12:00 AM Outpatient Encounter EVENT (HISTORICAL) IHE Encounter Template Text not used by [facility] Lab Results: +/- 30 days of the encounter This section includes the Chemistry and Hematology Lab Results on record with [place] for the patient. Radiology Reports and Pathology Reports are provided separately, in subsequent sections. Lab Results This section contains the Chemistry/Hematology Results that were resulted 30 days before or 30 daysafter the date of the Encounter. Date/Time Source Result Type Result - Unit Interpretation Reference Range Specimen Type Comment Oct 21, 2024 10:12 AM [facility] N BOOKER (SERUM) SERUM Specimen Type: SERUM Comment: Results confirmed on dilution. No monoclonality detected. Ordering Provider: CONI SINHA Report Released Date/Time: Oct 21, 2024 10:06 AM Reporting Lab: [address] [address] Performing Lab: [address] [address] .ALBUMIN ELEC 3.6 g/dL 2.9-4.4 .ALPHA 1 [...] INTERPRETATION Comment Oct 21, 2024 10:12 AM [facility] KAPPA + LAMBDA Lt CHAINS, FREE, Serum SERUM S pecimen Type: SERUM No comment entered. Ordering Provider: MARTIN SINHA Report Released Date/Time: Oct 21, 2024 10:06 AM Reporting Lab: [address] [address] Performing Lab: [address] [address] .Free [place] Lt Chains, S 71.0 mg/L H 3.3-1 9.4 .Free Lambda Lt Chains, S 59.3 mg/L H 5.7- 26.3 .[place]/Lambda Ratio, S 1.20 0.26-1.65 Oct 21, 2024 10:12 AM [facility] PLASMA Specimen Type: PLASM A Comment: [...] Oct 21, 2024 09:54 AM Reporting Lab: [address] [address] Performing Lab: [address] [address] TSH 0.9451 m[IU]/mL 0.3500-4.9400 Oct 21, 2024 10:12 AM [facility] GLYCOHEMOGLOBIN BLOOD Specimen Type: BLOOD Comment: Prediabetes: 5.7%-6.4% Diabetes: >= 6.5% [facility] guidelines for A1c interpretation: Glycemic control targets [...] 8.73 and 9.27. Ref: https://ngsp.org/CAPdata.asp. The in-house [employer] D-100 analyzer has a historical CV <= 2%. Contact the laboratory for further performance characteristics of this assay. Ordering Provider: MARTIN SINHA Report Released Date/Time: Oct 21, 2024 09:54 AM Reporting Lab: [address] [address] Performing Lab: [address] [address] GLYCOHEMOGLOBIN 5.5 4.4-5.6 Oct 21, 2024 10:12 AM [facility] LIPID PROFILE PLASMA Specimen Type: PLASM A [...] Oct 21, 2024 09:54 AM Reporting Lab: [address] [address] Performing Lab: [address] [address] CHOLESTEROL 145 mg/dL 0-199 TRIGLYCERIDE 54 mg/dL 0-149 HDL CHOLESTEROL 61 mg/dL 40-69 DIRECT LDL CHOL. 80 mg/dL 0-100 Oct 21, 2024 10:12 AM [facility] CBC/PLT BLOOD Specimen Type: BLOOD No comment entered. Ordering Provider: MARTIN SINHA Report Released Date/Time: Oct 21, 2024 09:54 AM Reporting Lab: [address] [address] Performing Lab: [address] [address] WBC 7.1 10*3/uL 5.0-10.0 RBC 4.17 10*6/uL L 4.6-6.2 HGB 13.8 g/dL L 14.0-18.0 HCT 40.6 L 42.0-52.0 MCV 97.4 fL H 80.0-94.0 MCH 33.1 pg H 27.0-31.0 MCHC 34.0 g/dL 32.0-36.0 PLT 166 10*3/uL 150-450 MPV 10.5 fL 9.0-13.1 RDW 13.7 11.0-16.0 NRBC 0.0 0.0-0.0 Oct 21, 2024 10:12 AM [facility] PANEL 5 PLASMA Specimen Type: PLASM A [...] Oct 21, 2024 09:54 AM Reporting Lab: [address] [address] Performing Lab: [address] [address] CREATININE 1.28 mg/dL H 0.72-1.25 UREA NITROGEN [...] 21, 2024 10:09 AM 138/72 [facility] Oct 21, 2024 09:32 AM 163/77 [facility] Oct 21, 2024 09:32 AM 98 60 153/84 95 0 171 28 [facility] Social History: Smoking Status (Most current) and Tobacco Use (All prior to encounter date) This section includes the most current, and the historical, smoking and tobacco- related health factors from the [place] facility where the Encounter took place. Current Smoking Status This section includes the most current smoking, or tobacco-related health factor, from the [place] facility where the Encounter took place. Date/Time Current Smoking Status Comment Nubia ity Oct 22, 2023 01:00 PM VA-TOBACCO FORMER USER [facility] Tobacco Use History This section includes a history of the smoking, or tobacco-related health factors, that were collected on or before the date of the Encounter. The data comes from the [place] facility where the Encounter took place. Date/Time Smoking Status/Tobacco Use Comment [facility] Oct 22, 2023 01:00 PM VA-TOBACCO QUIT 15 YRS OR MORE [facility] Oct 19, 2022 09:30 AM VA-TOBACCO FORMER USER [facility] Oct 19, 2022 09:30 AM VA-TOBACCO QUIT 15 YRS OR MORE [facility] Nov 30, 2020 11:30 AM VA-TOBACCO FORMER USER [facility] Nov 30, 2020 11:30 AM VA-TOBACCO QUIT 15 YRS OR MORE [facility] Oct 12, 2019 04:30 PM VA-TOBACCO FORMER USER [facility] Oct 12, 2019 04:30 PM VA-TOBACCO QUIT 15 YRS OR MORE [facility] Sep 18, 2018 10:47 AM VA-TOBACCO FORMER USER [facility] Sep 18, 2018 10:47 AM VA-TOBACCO QUIT 15 YRS OR MORE [facility] October 29, 2016 09:16 AM V9 QUIT TOBACCO >7 YEARS AGO [facility] Jun 03, 2015 02:18 PM V9 QUIT TOBACCO >7 YEARS AGO [facility] Apr 24, 2013 09:05 AM V9 QUIT TOBACCO >7 YEARS AGO [facility] Dec 13, 2011 04:40 PM V9 QUIT TOBACCO >7 YEARS AGO [facility] Nov 30, 2010 07:21 AM V9 QUIT TOBACCO >7 YEARS AGO [facility] Advance Directives: All historical and current Section Date Range: From patient's date of to the date document was created. This section includes ALL of a patient's completed or amended [place] Advance and Rescinded Directives. The entries below indicate that a directive exists for the patient, but an actual copy is not included with this document. The data comes from all [place] facilities. Date Advance Directives Provider Source Feb 01, 2012 ADVANCE DIRECTIVE PAULINE DAWN- [facility] Jan 25, 2012 ADVANCE DIRECTIVE DISCUSSION MURIEL ZHANG-[facility]
--- OUTSIDE RECORDS SUMMARY | 2024-11-03 13:30 | XMS_ITS | Continuity of Care Document ---
Author Organization [facility] ROSARIO Spears MONTROSE Address [address] [place] [address] Care Team Providers Care Cloud Systems Architect Name Role Phone ALEXANDRA WITT Primary Care Provider Assessment No assessment recorded. Plan of Treatment Reminders Order Date Submit Date Provider Last Modified By Organization Details Last Modified Time Details Appointments FOLLOW UP [facility] 2024 11:00A Gretchen MALIN MD Not available Not available Not available FOLLOW UP [facility] 2024 11:40A Gretchen MALIN MD Not available Not available Not available Lab None recorded . Referral None recorded . Procedures None recorded . Surgeries None recorded . Imaging None recorded . Medication Orders None recorded . Patient TargetsNo targets recorded. Patient InstructionsNo instructions recorded. Reason for Referral None Reported. 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 Procedures Surgical History Date Name Laterality Status Provider Name and Address Organization Details Recorded Time 04/17/20 24 Blade Biopsy w/ ED&C completed [facility] 04/17/2024 12:48:09 04/17/20 24 Destruction Premalignant Lesion(s) completed Vivian [facility] 04/17/2024 12:48:12 11/04/19 24 DAK - Biopsy, Tangential completed [place] Nicole [facility] 11/04/2023 13:54:39 Imaging Results None recorded. Procedure [...] Time Tobacco Smoking Status Never Smoker Zuleima Martinez [facility] 11/04/2023 13:20:47 Sunscreen Use? No Informatio n not available 11/04/2023 Tanning Bed Use No Informati on not available 11/04/2023 What Was The Date Of Your Most Recent Tobacco Screening? 04/17/2024 azorzi Information not available 04/17/2024 Sex: Unknown Functional Status Question Answer Note LastModified by Organizat ion Details LastModified Time What is your level of alcohol consumption? Occasional Information not available 11/04/2023 Mental Status None recorded. Family History Relationship [...] SNOMED-CT Code Diagnosis ICD10 Code Diagnosis Note [id number] ORALIA BURRELL-WILBUR AN, DO [place] [address] [place] [address] 10/14/2024 12:49:21 10/15/2024 04:10:43 History of malignant neoplasm of skin [id number] Z85.828 No evidence of recurrence . Discussed risk of recurrence and new skin cancers, so regular self exam and profession al skin checks are recommende d. Sun protection with broad spectrum SPF 30 sunscreen and broad-brim med hat is recommende d. Sun protection with SPF 30 broad spectrum sunscreen and protective gear discussed. Postoperative visit 1836 [id number] Z09 No signs of infection present Scar [id number] L90.5 Patient is happy with the results- well healed. Continue regular skin checks. Health Concerns Section Related Observation LastModified by Organization Detai ls LastModified Time None Recorded Concern Status LastModified by Organization Details LastModified Time None Recorded Payers Encounter Date Sequence Insurance Name Policy Number Policy Magallanes Covered Member ID Magallanes Member ID Guarantor Name 10/14/2024 1 [employer] (MEDICARE REPLACEMENT/ ADVANTAGE - PPO) Franck Grimes [id number] Franck Grimes Notes Date Note Type Note Provider Name and Address Organization Details Recorded Time 10/14/2024 text/html Patient presents for a delayed skin graft granulation follow up for 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 At previous follow up, patient's wound was in the appropriate stage of healing but was not fully healed. Patient was instructed to continue wound care and to follow up in 3 months. Curette to promote wound healing. Since then, the area has healed well with no issues. ORALIA VACA, [address] [place], [address], [facility] 10/14/2024 16:03:13
[2024-11-03] MEDS: SODIUM CHLORIDE 0.9% 10ML SYR (RAD ONLY) 10 ML IV (14:39)
[2024-11-03] MEDS: GADOTERIDOL INJ 20ML SYRINGE 15 ML IV (14:39)
== END 2024-11-03 23:59 | disposition home or self-care (01) ==
LOC: RAD 13:27
PROVIDERS: PCP Family Medicine; Visit Provider Family Medicine
DX: H53.2 Diplopia (principal); J32.9 Chronic sinusitis, unspecified; R90.89 Other abnormal findings on diagnostic imaging of central nervous system
CPT/HCPCS: 70553; A9576

== ENCOUNTER 2024-11-25 11:18 | Outpatient (CLI) | payer MEDICARE, SELFPAY ==
--- OUTSIDE RECORDS SUMMARY | 2024-11-03 08:28 | XMS_ITS | Continuity of Care Document ---
Author Name [facility] Organization [facility] Care Team Providers Care Network Management Specialist Name Role Phone [facility] Unavailable Unavailable Problems Combined list of problems from [facility] and [facility] facilities. It does not include entries that were removed or entered in error. Problem Status Onset Date Problem Type Date of Resolution Comments Source Benign essential hypertension Active Condition [facility] Benign hypertension Active Condition [facility] Crohn Disease * (ICD-9-CM 555.9/555.0/555.1/558.9) Active Condition [facility] Crohn's disease Active Condition [facility] Gastroesophageal reflux disease Active Condition [facility] Gastroesophageal reflux disease Active Condition [facility] HTN * (ICD-9-CM 401.9) Active Condition [facility] Hyperlipidemia Active Condition [facility] Polyclonal hypergammaglobulinemia Active Condition [facility] Sinusitis Active Condition [facility] Tobacco Use Disorder, Remission (ICD-9-CM 305.1) Active Condition [facility] Diagnosis: ICD-10-CM I10 Essential (primary) hypertension Active Diagnosis [facility] Diagnosis: ICD-10-CM Z71.89 Other specified counseling Active Diagnosis [facility] Diagnosis: ICD-10-CM D89.0 Polyclonal hypergammaglobulinemia Active Diagnosis [facility] Medications Combined list of outpatient medications from [facility] and [facility] facilities.Medications provided include 1) outpatient medications from the last 15 months, and 2) patient-reported medications. Medication Details Route Status Patient Instructions Prescription Expires Prescription Number Last Dispense Date Ordering Provider Order Date Order Qty Source AMLODIPINE BESYLATE 2.5MG TAB TAKE ONE TABLET BY MOUTH DAILY ORAL ACTIVE GRANT LOW 2018 [place] [facility] ASPIRIN 81MG TAB,EC TAKE ONE TABLET BY MOUTH DAILY ORAL ACTIVE BUCIO,E MEREDITH A 2010 [place] [facility] HYDROCHLORO THIAZIDE 12.5MG CAP TAKE 1 CAPSULE BY MOUTH DAILY ORAL ACTIVE GRANT LOW 2020 [place] [facility] INFLIXIMAB INJ,LYPHL INJECT INTO THE VEIN DIRECTED [id number] INTRAV ENOUS ACTIVE GRANT LOW 2014 [place] [facility] METOPROLOL SUCCINATE 50MG TAB,SA TAKE ONE-HALF TABLET BY MOUTH DAILY ORAL ACTIVE BUCIO,E MEREDITH A 2010 [place] [facility] OMEPRAZOLE 20MG CAP,EC TAKE 1 CAPSULE BY MOUTH DAILY ORAL ACTIVE BUCIO,E MEREDITH A 2010 [place] [facility] ROSUVASTATI N CA 40MG TAB TAKE ONE-HALF TABLET BY MOUTH AT BEDTIME ORAL ACTIVE BUCIO,E MEREDITH A 2010 [place] [facility] Immunizations Combined list of available immunizations from the Department of Defense and Veterans [facility] facilities. Immunization Series Date Given Administered By Site Reaction Lot Number CVX Code Drug Technical Training Specialist Status Comments Source INFLUENZA, UNSPECIFIED FORMULATION 2023 88 complet ed HISTORICA L INFORMATI ON - FROM PATIENT'S RECALL, [place] [facility] INFLUENZA, UNSPECIFIED FORMULATION 2022 88 complet ed HISTORICA L INFORMATI ON - SOURCE UNSPECIFI ED, [place] [facility] COVID-19 (itsDapper), MRNA, LNP-S, PF, 30 MCG/0.3 ML DOSE, JOI-SUCROSE (AGES 12+ YEARS) 4 2021 217 complet ed HISTORICA L INFORMATI ON - FROM OTHER REGISTRY, [place] [facility] COVID-19 (itsDapper), MRNA, LNP-S, PF, 30 MCG/0.3 ML DOSE 3 2020 208 complet ed HISTORICA L INFORMATI ON - FROM OTHER REGISTRY, [place] [facility] INFLUENZA, HIGH-DOSE, QUADRIVALENT 5 2020 197 complet ed HISTORICA L INFORMATI ON - FROM OTHER REGISTRY, [place] [facility] INFLUENZA, UNSPECIFIED FORMULATION 2020 88 complet ed [...] FROM OTHER REGISTRY, [place] [facility] PNEUMOCOCCAL POLYSACCHARID E PPV23 1 2019 33 complet ed HISTORICA L INFORMATI ON - FROM OTHER REGISTRY, [place] [facility] INFLUENZA, HIGH DOSE SEASONAL 3 2018 135 complet ed HISTORICA L INFORMATI ON - FROM OTHER REGISTRY, [place] [facility] INFLUENZA, SEASONAL, INJECTABLE 2018 141 complet ed UTD [place] [facility] HEP A, ADULT 3 2018 52 [...] FROM OTHER REGISTRY, [place] [facility] ZOSTER LIVE 1 2015 121 complet ed HISTORICA L INFORMATI ON - FROM OTHER REGISTRY, [place] [facility] INFLUENZA A & B (HISTORICAL) 2015 88 complet ed UTD [place] [facility] INFLUENZA A & B (HISTORICAL) 2014 88 complet ed UTD [place] [facility] PNEUMOCOCCAL CONJUGATE PCV 13 2012 133 complet ed PER PT. HX. [place] [facility] INFLUENZA A & B (HISTORICAL) 2012 88 complet ed UP TO DATE [place] [facility] INFLUENZA A & B (HISTORICAL) 2011 88 complet ed UP TO DATE FOR THE FLU SEASON. [place] [facility] DTP 2011 [place] 01 complet ed [place] [facility] INFLUENZA A & B (HISTORICAL) 2010 88 complet ed UP TO DATE FOR THE 2011-05 FLU SEASON. [place] [facility] INFLUENZA A & B (HISTORICAL) 2009 88 complet ed [place] [facility] PNEUMOC[facility]AL, UNSPECIFIED FORMULATION 2009 109 complet ed UP TO DATE [place] [facility] Results Combined list of recent chemistry, hematology and other laboratory results from Department of Defense and Veterans Affairs, ranging from 15 months to all on record, depending upon the facility. Order Name Results Value Reference Range Date Interpretation Specimen Comments Source CBC/PLT LEUKOCYTES [#/VOLUME] IN BLOOD BY AUTOMATED COUNT 7.1 10*3/uL 5.0 - 10.0 10/21 Specimen Type: BLOOD No comment entered. Ordering Provider: Elisha SINHA Report Released Date/Time: Oct 21, 2024 09:54 AM Reporting Lab: [facility] [address] [address] Performing Lab: [facility] [address] [address] [facility] CBC/PLT ERYTHROCYT ES [#/VOLUME] IN BLOOD BY AUTOMATED COUNT 4.17 10*6/uL 4.6 - 6.2 10/21 L Specimen Type: BLOOD No comment entered. Ordering Provider: Elisha SINHA Report Released Date/Time: Oct 21, 2024 09:54 AM Reporting Lab: [place] [address] Performing Lab: [address] CBC/PLT HEMOGLOBIN [MASS/VOLU ME] IN BLOOD 13.8 g/dL 14.0 - 18.0 10/21 L Specimen Type: BLOOD No comment entered. Ordering Provider: Elisha SINHA Report Released Date/Time: Oct 21, 2024 09:54 AM Reporting Lab: [place] [address] Performing Lab: [address] CBC/PLT HEMATOCRIT [VOLUME FRACTION] OF BLOOD BY AUTOMATED COUNT 40.6 42.0 - 52.0 10/21 L Specimen Type: BLOOD No comment entered. Ordering Provider: Elisha SINHA Report Released Date/Time: Oct 21, 2024 09:54 AM Reporting Lab: [place] [address] Performing Lab: [address] CBC/PLT MCV [ENTITIC VOLUME] BY AUTOMATED COUNT 97.4 fL 80.0 - 94.0 10/21 H Specimen Type: BLOOD No comment entered. Ordering Provider: lEisha SINHA Report Released Date/Time: Oct 21, 2024 09:54 AM Reporting Lab: [place] [address] Performing Lab: [address] CBC/PLT MCH [ENTITIC MASS] BY AUTOMATED COUNT 33.1 pg 27.0 - 31.0 10/21 H Specimen Type: BLOOD No comment entered. Ordering Provider: Elisha SINHA Report Released Date/Time: Oct 21, 2024 09:54 AM Reporting Lab: [address] [address] Performing Lab: [place] [phone] [place] [address] CBC/PLT MCHC [MASS/VOLU ME] BY AUTOMATED COUNT 34.0 g/dL 32.0 - 36.0 10/21 Specimen Type: BLOOD No comment entered. Ordering Provider: Elisha SINHA Report Released Date/Time: Oct 21, 2024 09:54 AM Reporting Lab: [address] [address] Performing Lab: [place] [phone] [place] [address] CBC/PLT PLATELETS [#/VOLUME] IN BLOOD 166 10*3/uL 150 - 450 10/21 Specimen Type: BLOOD No comment entered. Ordering Provider: Elisha SINHA Report Released Date/Time: Oct 21, 2024 09:54 AM Reporting Lab: [place] [phone] Performing Lab: [place] [phone] [place] [address] CBC/PLT PLATELET MEAN VOLUME [ENTITIC VOLUME] IN BLOOD 10.5 fL 9.0 - 13.1 10/21 Specimen Type: BLOOD No comment entered. Ordering Provider: Elisha SINHA Report Released Date/Time: Oct 21, 2024 09:54 AM Reporting Lab: [address] [address] Performing Lab: [address] [address] [facility] CBC/PLT ERYTHROCYT E DISTRIBUTI ON WIDTH [ENTITIC VOLUME] BY AUTOMATED COUNT 13.7 11.0 - 16.0 10/21 Specimen Type: BLOOD No comment entered. Ordering Provider: Elisha SINHA Report Released Date/Time: Oct 21, 2024 09:54 AM Reporting Lab: [address] [address] Performing Lab: [place] [phone] [facility] CBC/PLT NUCLEATED ERYTHROCYT ES/100 ERYTHROCYT ES IN BLOOD 0.0 0.0 - 0.0 10/21 Specimen Type: BLOOD No comment entered. Ordering Provider: Elisha SINHA Report Released Date/Time: Oct 21, 2024 09:54 AM Reporting Lab: [place] [phone] Performing Lab: [place] [phone] [facility] GLYCOHEM OGLOBIN HEMOGLOBIN A1C/HEMOGL OBIN.TOTAL IN BLOOD BY HPLC 5.5 4.4 - 5.6 10/21 Specimen Type: BLOOD Comment: Prediabetes : 5.7%-6.4% Diabetes: >= 6.5% [facility] guidelines for A1c interpretat ion: Glycemic control targets are based on Shared Decision Making between clinicians and patients. Criteria used to establish an A1c target recommendat ion can be found at https://www .[place].gov/torsten lityandpati entsafety/ and include the use of result accuracy and precision(C V) of the A1c tests clinicians utilize at their own sites of practice. Values obtained from A1C measurement s can vary. For typical A1C assays, a reported value of 7.0 could actually be between 6.72 and 7.28 if measured by a reference method. A reported value of 9.0 could actually be between 8.73 and 9.27. Ref: https://ngs p.org/CAPda ta.asp. The in-house [employer]-ROCKI D-100 analyzer has a historical CV <= 2%. Contact the laboratory for further performance characteris tics of this assay. Ordering Provider: Elisha SINHA Report Released Date/Time: Oct 21, 2024 09:54 AM Reporting Lab: [address] [address] Performing Lab: [place] [phone] [facility] [place] (SERUM) ALBUMIN [MASS/VOLU ME] IN SERUM OR PLASMA BY ELECTROPHO RESIS 3.6 g/dL 2.9 - 4.4 10/21 Specimen Type: SERUM Comment: Results confirmed on dilution. No monoclonali ty detected. Ordering Provider: Elisha SINHA Report Released Date/Time: Oct 21, 2024 10:06 AM Reporting Lab: [place] [address] Performing Lab: [place] [address] [facility] [place] (SERUM) ALPHA 1 GLOBULIN [MASS/VOLU ME] IN SERUM OR PLASMA BY ELECTROPHO RESIS 0.3 g/dL 0.0 - 0.4 10/21 Specimen Type: SERUM Comment: Results confirmed on dilution. No monoclonali ty detected. Ordering Provider: Elisha SINHA Report Released Date/Time: Oct 21, 2024 10:06 AM Reporting Lab: [place] [address] Performing Lab: [place] [phone] [place] [address] [place] (SERUM) ALPHA 2 GLOBULIN [MASS/VOLU ME] IN SERUM OR PLASMA BY ELECTROPHO RESIS 0.8 g/dL 0.4 - 1.0 10/21 Specimen Type: SERUM Comment: Results confirmed on dilution. No monoclonali ty detected. Ordering Provider: Elisha SINHA Report Released Date/Time: Oct 21, 2024 10:06 AM Reporting Lab: [place] [phone] Performing Lab: [place] [phone] [place] [address] [facility] (SERUM) BETA GLOBULIN [MASS/VOLU ME] IN SERUM OR PLASMA BY ELECTROPHO RESIS 1.8 g/dL 0.7 - 1.3 10/21 H Specimen Type: SERUM Comment: Results confirmed on dilution. No monoclonali ty detected. Ordering Provider: Elisha SINHA Report Released Date/Time: Oct 21, 2024 10:06 AM Reporting Lab: [place] [phone] Performing Lab: [place] [phone] [facility] [place] (SERUM) GAMMA GLOBULIN [MASS/VOLU ME] IN SERUM OR PLASMA BY ELECTROPHO RESIS 1.6 g/dL 0.4 - 1.8 10/21 Specimen Type: SERUM Comment: Results confirmed on dilution. No monoclonali ty detected. Ordering Provider: Elisha SINHA Report Released Date/Time: Oct 21, 2024 10:06 AM Reporting Lab: [place] [phone] Performing Lab: [address] [address] [facility] [place] (SERUM) IGG [MASS/VOLU ME] IN SERUM OR PLASMA 1605 mg/dL 603 - 1613 10/21 Specimen Type: SERUM Comment: Results confirmed on dilution. No monoclonali ty detected. Ordering Provider: Elisha SINHA Report Released Date/Time: Oct 21, 2024 10:06 AM Reporting Lab: [place] [phone] Performing Lab: [address] [address] [facility] [place] (SERUM) IGA [MASS/VOLU ME] IN SERUM OR PLASMA 1221 mg/dL 61 - 437 10/21 H Specimen Type: SERUM Comment: Results confirmed on dilution. No monoclonali ty detected. Ordering Provider: Elisha SINHA Report Released Date/Time: Oct 21, 2024 10:06 AM Reporting Lab: [place] [phone] Performing Lab: [address] [address] [facility] [place] (SERUM) IGM [MASS/VOLU ME] IN SERUM OR PLASMA 192 mg/dL 15 - 143 10/21 H Specimen Type: SERUM Comment: Results confirmed on dilution. No monoclonali ty detected. Ordering Provider: Elisha SINHA Report Released Date/Time: Oct 21, 2024 10:06 AM Reporting Lab: [address] [place] [address] Performing Lab: [place] [phone] [facility] [place] (SERUM) PROTEIN [MASS/VOLU ME] IN SERUM OR PLASMA 8.0 g/dL 6.0 - 8.5 10/21 Specimen Type: SERUM Comment: Results confirmed on dilution. No monoclonali ty detected. Ordering Provider: Elisha SINHA Report Released Date/Time: Oct 21, 2024 10:06 AM Reporting Lab: [place] [phone] Performing Lab: [place] [phone] [facility] (SERUM) ALBUMIN/GL OBULIN [MASS RATIO] IN SERUM OR PLASMA 0.9 0.7 - 1.7 10/21 Specimen Type: SERUM Comment: Results confirmed on dilution. No monoclonali ty detected. Ordering Provider: Elisha SINHA Report Released Date/Time: Oct 21, 2024 10:06 AM Reporting Lab: [place] [phone] Performing Lab: [address] [address] [facility] ([facility]) GLOBULIN [MASS/VOLU ME] IN SERUM 4.4 g/dL 2.2 - 3.9 10/21 H Specimen Type: SERUM Comment: Results confirmed on dilution. No monoclonali ty detected. Ordering Provider: Elisha SINHA Report Released Date/Time: Oct 21, 2024 10:06 AM Reporting Lab: [place] [phone] Performing Lab: [address] [address] [facility] [place] (SERUM) PROTEIN.MO NOCLONAL [MASS/VOLU ME] IN SERUM OR PLASMA BY ELECTROPHO RESIS Not Observed g/dL 10/21 Specimen Type: SERUM Comment: Results confirmed on dilution. No monoclonali ty detected. Ordering Provider: Elisha SINHA Report Released Date/Time: Oct 21, 2024 10:06 AM Reporting Lab: [place] [phone] Performing Lab: [address] [place] (SERUM) IMMUNOELEC TROPHORESI S FOR SERUM OR PLASMA Comment 10/21 Specimen Type: SERUM Comment: Results confirmed on dilution. No monoclonali ty detected. Ordering Provider: Elisha SINHA Report Released Date/Time: Oct 21, 2024 10:06 AM Reporting Lab: [place] [phone] Performing Lab: [address] KAPPA + LAMBDA Lt CHAINS, FREE, Serum KAPPA LIGHT CHAINS.TOÑITO E [MASS/VOLU ME] IN SERUM 71.0 mg/L 3.3 - 19.4 10/21 H Specimen Type: SERUM No comment entered. Ordering Provider: Elisha SINHA Report Released Date/Time: Oct 21, 2024 10:06 AM Reporting Lab: [place] [address] Performing Lab: [address] KAPPA + LAMBDA Lt CHAINS, FREE, Serum LAMBDA LIGHT CHAINS.TOÑITO E [MASS/VOLU ME] IN SERUM OR PLASMA 59.3 mg/L 5.7 - 26.3 10/21 H Specimen Type: SERUM No comment entered. Ordering Provider: Elisha SINHA Report Released Date/Time: Oct 21, 2024 10:06 AM Reporting Lab: [place] [phone] Performing Lab: [address] KAPPA + LAMBDA Lt CHAINS, FREE, Serum KAPPA LIGHT CHAINS.TOÑITO E/LAMBDA LIGHT CHAINS.TOÑITO E [MASS RATIO] IN SERUM 1.20 0.26 - 1.65 10/21 Specimen Type: SERUM No comment entered. Ordering Provider: Elisha SINHA Report Released Date/Time: Oct 21, 2024 10:06 AM Reporting Lab: [facility] [address] [facility] [address] Performing Lab: [facility] [address] [address] [facility] LIPID PROFILE CHOLESTERO L [MASS/VOLU ME] IN SERUM OR PLASMA 145 mg/dL 0 - 199 10/21 Specimen Type: [...] decrease <15 G5 Kidney failure Ordering Provider: Elisha SINHA Report Released Date/Time: Oct 21, 2024 09:54 AM Reporting Lab: [facility] [address] [address] [address] Performing Lab: [facility] [address] [address] [facility] LIPID PROFILE TRIGLYCERI DE [MASS/VOLU ME] IN SERUM OR PLASMA 54 mg/dL 0 - 149 10/21 Specimen Type: [...] decrease <15 G5 Kidney failure Ordering Provider: Elisha SINHA Report Released Date/Time: Oct 21, 2024 09:54 AM Reporting Lab: [facility] [address] [address] Performing Lab: [facility] [address] [address] [facility] LIPID PROFILE CHOLESTERO L IN HDL [MASS/VOLU ME] IN SERUM OR PLASMA 61 mg/dL 40 - 69 10/21 Specimen Type: PLASMA Comment: Estimated Glomerular [...] decrease <15 G5 Kidney failure Ordering Provider: Elisha SINHA Report Released Date/Time: Oct 21, 2024 09:54 AM Reporting Lab: [facility] [address] [address] Performing Lab: [facility] [address] [address] [facility] LIPID PROFILE CHOLESTERO L IN LDL [MASS/VOLU ME] IN SERUM OR PLASMA BY DIRECT ASSAY 80 mg/dL 0 - 100 10/21 Specimen Type: [...] decrease <15 G5 Kidney failure Ordering Provider: Elisha SINHA Report Released Date/Time: Oct 21, 2024 09:54 AM Reporting Lab: [facility] [address] [address] Performing Lab: [facility] [address] [address] [facility] PANEL 5 CREATININE [MASS/VOLU ME] IN SERUM OR PLASMA 1.28 mg/dL 0.72 - 1.25 10/21 H Specimen [...] decrease <15 G5 Kidney failure Ordering Provider: Elisha SINHA Report Released Date/Time: Oct 21, 2024 09:54 AM Reporting Lab: [facility] [address] [address] Performing Lab: [facility] [address] [address] [facility] PANEL 5 UREA NITROGEN [MASS/VOLU ME] IN SERUM OR PLASMA 15 mg/dL 9 - 10/21 Specimen Type: PLASMA Comment: Estimated [...] decrease <15 G5 Kidney failure Ordering Provider: Elisha SINHA Report Released Date/Time: Oct 21, 2024 09:54 AM Reporting Lab: [facility] [address] [address] Performing Lab: [facility] [address] [address] [facility] PANEL 5 GLUCOSE [MASS/VOLU ME] IN SERUM OR PLASMA 100 mg/dL 74 - 100 10/21 Specimen Type: PLASMA Comment: [...] decrease <15 G5 Kidney failure Ordering Provider: Elisha SINHA Report Released Date/Time: Oct 21, 2024 09:54 AM Reporting Lab: [facility] [address] [address] Performing Lab: [facility] [address] [address] [facility] PANEL 5 SODIUM [MOLES/VOL UME] IN SERUM OR PLASMA 140 mmol/L 136 - 145 10/21 Specimen Type: [...] decrease <15 G5 Kidney failure Ordering Provider: Elisha SINHA Report Released Date/Time: Oct 21, 2024 09:54 AM Reporting Lab: [facility] [address] [address] Performing Lab: [facility] [address] [address] [facility] PANEL 5 POTASSIUM [MOLES/VOL UME] IN SERUM OR PLASMA 4.4 mmol/L 3.5 - 5.1 10/21 Specimen Type: [...] decrease <15 G5 Kidney failure Ordering Provider: Elisha SINHA Report Released Date/Time: Oct 21, 2024 09:54 AM Reporting Lab: [facility] [address] [address] Performing Lab: [facility] [address] [address] [facility] PANEL 5 CHLORIDE [MOLES/VOL UME] IN SERUM OR PLASMA 108 mmol/L 98 - 107 10/21 H Specimen Type: PLASMA Comment: Estimated [...] decrease <15 G5 Kidney failure Ordering Provider: Elisha SINHA Report Released Date/Time: Oct 21, 2024 09:54 AM Reporting Lab: [facility] [address] [address] Performing Lab: [facility] [address] [address] [facility] PANEL 5 CARBON DIOXIDE, TOTAL [MOLES/VOL UME] IN SERUM OR PLASMA 24 mmol/L - 10/21 Specimen Type: PLASMA Comment: [...] decrease <15 G5 Kidney failure Ordering Provider: Elisha SINHA Report Released Date/Time: Oct 21, 2024 09:54 AM Reporting Lab: [facility] [place] [id number] [facility] [address] Performing Lab: [facility] [address] [address] [facility] PANEL 5 CALCIUM [MASS/VOLU ME] IN SERUM OR PLASMA 9.4 mg/dL 8.4 - 10.2 10/21 Specimen Type: [...] decrease <15 G5 Kidney failure Ordering Provider: Elisha SINHA Report Released Date/Time: Oct 21, 2024 09:54 AM Reporting Lab: [facility] [address] [address] Performing Lab: [facility] [address] [address] [facility] PANEL 5 PROTEIN [MASS/VOLU ME] IN SERUM OR PLASMA 9.0 g/dL 6.4 - 8.3 10/21 H Specimen [...] decrease <15 G5 Kidney failure Ordering Provider: Elisha SINHA Report Released Date/Time: Oct 21, 2024 09:54 AM Reporting Lab: [facility] [address] [address] Performing Lab: [facility] [address] [address] [facility] PANEL 5 ALBUMIN [MASS/VOLU ME] IN SERUM OR PLASMA 4.1 g/dL 3.5 - 5.2 10/21 Specimen Type: [...] decrease <15 G5 Kidney failure Ordering Provider: Elisha SINHA Report Released Date/Time: Oct 21, 2024 09:54 AM Reporting Lab: [facility] [address] [place] [address] Performing Lab: [facility] [address] [address] [facility] PANEL 5 BILIRUBIN. TOTAL [MASS/VOLU ME] IN SERUM OR PLASMA 0.8 mg/dL 0.2 - 1.2 10/21 Specimen Type: [...] decrease <15 G5 Kidney failure Ordering Provider: Elisha SINHA Report Released Date/Time: Oct 21, 2024 09:54 AM Reporting Lab: [facility] [address] [address] Performing Lab: [facility] [address] [address] [facility] PANEL 5 ASPARTATE AMINOTRANS FERASE [ENZYMATIC ACTIVITY/V [...] decrease <15 G5 Kidney failure Ordering Provider: Elisha SINHA Report Released Date/Time: Oct 21, 2024 09:54 AM Reporting Lab: [facility] [address] [address] Performing Lab: [facility] [address] [address] [facility] PANEL 5 ALANINE AMINOTRANS FERASE [ENZYMATIC ACTIVITY/V OLUME] IN SERUM OR PLASMA 18 U/L 0 - 55 10/21 Specimen Type: [...] decrease <15 G5 Kidney failure Ordering Provider: Elisha SINHA Report Released Date/Time: Oct 21, 2024 09:54 AM Reporting Lab: [facility] [address] [id number] Performing Lab: [facility] [address] [address] [facility] PANEL 5 ANION GAP 3 IN SERUM OR PLASMA 8 meq/L 3 - 19 10/21 Specimen Type: [...] decrease <15 G5 Kidney failure Ordering Provider: Elisha SINHA Report Released Date/Time: Oct 21, 2024 09:54 AM Reporting Lab: [facility] [address] [address] Performing Lab: [facility] [address] [address] [facility] PANEL 5 ALKALINE PHOSPHATAS E [ENZYMATIC ACTIVITY/V OLUME] IN SERUM OR PLASMA 100 U/L 40 - 150 10/21 Specimen Type: [...] decrease <15 G5 Kidney failure Ordering Provider: Elisha SINHA Report Released Date/Time: Oct 21, 2024 09:54 AM Reporting Lab: [facility] [address] [address] Performing Lab: [facility] [address] [id number] [facility] PANEL 5 GLOMERULAR FILTRATION RATE/1.73 SQ M.PREDICTE D [VOLUME RATE/AREA] IN SERUM, PLASMA OR BLOOD BY CREATININE -BASED FORMULA (CKD-EPI 2020) 58 10/21 Specimen Type: PLASMA Comment: Estimated Glomerular [...] decrease <15 G5 Kidney failure Ordering Provider: Elisha SINHA Report Released Date/Time: Oct 21, 2024 09:54 AM Reporting Lab: [facility] [address] [address] Performing Lab: [facility] [address] [address] [facility] TSH THYROTROPI N [UNITS/VOL UME] IN SERUM OR PLASMA 0.9451 m[IU]/mL 0.3500 - 4.9400 10/21 Specimen Type: PLASMA Comment: Estimated Glomerular [...] decrease <15 G5 Kidney failure Ordering Provider: Elisha SINHA Report Released Date/Time: Oct 21, 2024 09:54 AM Reporting Lab: [facility] [address] [address] Performing Lab: [facility] [phone] [place] [address] CREATINI NE CREATININE [MASS/VOLU ME] IN URINE 65.3 mg/dL 11/28 Specimen Type: URINE No comment entered. Ordering Provider: GRANT CROSS Report Released Date/Time: November 11, 2023 01:14 PM Reporting Lab: [address] [address] Performing Lab: [phone] [place] [address] TOTAL PROTEIN PROTEIN [MASS/VOLU ME] IN URINE <12mg/dL 0 - 14 11/28 Specimen Type: URINE No comment entered. Ordering Provider: GRANT CROSS Report Released Date/Time: November 11, 2023 01:14 PM Reporting Lab: [address] [address] Performing Lab: [phone] [place] [address] URINALYS IS COLOR OF URINE Light Yellow 11/28 Specimen Type: URINE Comment: Microscopic not indicated Ordering Provider: GRANT CROSS Report Released Date/Time: November 11, 2023 01:14 PM Reporting Lab: [address] [address] Performing Lab: [address] [address] [facility] URINALYS IS APPEARANCE OF URINE Clear 11/28 Specimen Type: URINE Comment: Microscopic not indicated Ordering Provider: GRANT CROSS Report Released Date/Time: November 11, 2023 01:14 PM Reporting Lab: [address] [address] Performing Lab: [address] [address] [facility] URINALYS IS UROBILINOG EN [MASS/VOLU ME] IN URINE BY TEST STRIP Normalmg /dL 11/28 Specimen Type: URINE Comment: Microscopic not indicated Ordering Provider: GRANT CROSS Report Released Date/Time: November 11, 2023 01:14 PM Reporting Lab: [place] [address] [facility] [address] Performing Lab: [place] [address] [facility] [address] [facility] URINALYS IS HEMOGLOBIN [PRESENCE] IN URINE BY TEST STRIP Negative 11/28 Specimen Type: URINE Comment: Microscopic not indicated Ordering Provider: GRANT CROSS Report Released Date/Time: November 11, 2023 01:14 PM Reporting Lab: [address] [address] Performing Lab: [address] [address] [facility] URINALYS IS BILIRUBIN. TOTAL [PRESENCE] IN URINE BY TEST STRIP Negative 11/28 Specimen Type: URINE Comment: Microscopic not indicated Ordering Provider: GRANT CROSS Report Released Date/Time: November 11, 2023 01:14 PM Reporting Lab: [address] [address] Performing Lab: [address] [address] [facility] URINALYS IS KETONES [MASS/VOLU ME] IN URINE BY TEST STRIP Negative mg/dL 11/28 Specimen Type: URINE Comment: Microscopic not indicated Ordering Provider: GRANT CROSS Report Released Date/Time: November 11, 2023 01:14 PM Reporting Lab: [address] [address] Performing Lab: [address] [address] [facility] URINALYS IS PROTEIN [MASS/VOLU ME] IN URINE BY TEST STRIP Negative mg/dL 11/28 Specimen Type: URINE Comment: Microscopic not indicated Ordering Provider: GRANT CROSS Report Released Date/Time: November 11, 2023 01:14 PM Reporting Lab: [address] [address] Performing Lab: [address] [address] [facility] URINALYS IS PH OF URINE BY TEST STRIP 6.5 4.5 - 8.0 11/28 Specimen Type: URINE Comment: Microscopic not indicated Ordering Provider: GRANT CROSS Report Released Date/Time: November 11, 2023 01:14 PM Reporting Lab: [address] [address] Performing Lab: [address] [address] [facility] URINALYS IS NITRITE [PRESENCE] IN URINE BY TEST STRIP Negative 11/28 Specimen Type: URINE Comment: Microscopic not indicated Ordering Provider: GRANT CROSS Report Released Date/Time: November 11, 2023 01:14 PM Reporting Lab: [address] [address] Performing Lab: [phone] [place] [address] URINALYS IS LEUKOCYTE ESTERASE [PRESENCE] IN URINE BY TEST STRIP Negative 11/28 Specimen Type: URINE Comment: Microscopic not indicated Ordering Provider: GRANT CROSS Report Released Date/Time: November 11, 2023 01:14 PM Reporting Lab: [address] [address] Performing Lab: [address] [address] [facility] URINALYS IS SPECIFIC GRAVITY OF URINE 1.010 1.005 - 1.030 11/28 Specimen Type: URINE Comment: Microscopic not indicated Ordering Provider: GRANT CROSS Report Released Date/Time: November 11, 2023 01:14 PM Reporting Lab: [address] [address] Performing Lab: [address] [address] [facility] URINALYS IS GLUCOSE [MASS/VOLU ME] IN URINE BY TEST STRIP Negative mg/dL 11/28 Specimen Type: URINE Comment: Microscopic not indicated Ordering Provider: GRANT CROSS Report Released Date/Time: November 11, 2023 01:14 PM Reporting Lab: [address] [address] Performing Lab: [facility] [address] [facility] [address] [facility] Vital Signs Combined list of inpatient and outpatient Vital Signs from Department of [facility] and [facility], ranging from 12 months to all on record, depending upon the facility. Vital Sign Value Date Comments Source SYSTOLIC BLOOD PRESSURE 153 10/21/2024 09:32:12 [facility] DIASTOLIC BLOOD PRESSURE 84 10/21/2024 09:32:12 [facility] PULSE OXIMETRY 95 10/21/2024 09:32:12 [facility] 171 10/21/2024 09:32:12 [place] [facility] BMI 28 kg/m2 10/21/2024 09:32:12 [place] [facility] PAIN 0 10/21/2024 09:32:12 [place] [facility] TEMPERATURE 98 10/21/2024 09:32:12 YUN NGLAURI [facility] PULSE 60 10/21/2024 09:32:12 [facility] Encounters Combined list of: 1) Encounters from [facility] facilities going backup to the last 18 months, not all [place] inpatient encounters are included; 2) Encounters from the Department of [facility] facilities going backup to 280 months. 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 ME RAYMON Flores 06/21 [place] [facility] Outpatient Encounter [id number] 09/01 [place] [facility] Outpatient Encounter [id number] 09/16 [place] OFFICE O/P EST MOD 30 MIN [id number] Diagnos is: ICD-10- CM I10 Essenti al (primar y) hyperte GRANT Vega 10/21 [place] [facility] HC PRO PHONE CALL 5-10 MIN [id number] Diagnos is: ICD-10- CM Z71.89 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 ME RAYMON Flores 10/22 [place] [facility] HC PRO PHONE CALL 5-10 MIN [id number] Diagnos is: ICD-10- CM Z71.89 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 ME RAYMON Flores 10/24 [place] [facility] OFFICE O/P NEW SF 15 MIN [id number] Diagnos is: ICD-10- CM 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 LYNN Lenz 10/24 [place] HC PRO PHONE CALL 5-10 MIN [id number] Diagnos is: ICD-10- CM Z71.89 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 ME RAYMON Flores 11/04 [place] [facility] OFF/OP EST MAY X REQ PHY/QHP [id number] Diagnos is: ICD-10- CM Z71.89 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 ya MEYERAND NILO F 11/13 [place] [facility] Outpatient Encounter [id number] 03/08 [place] [facility] Outpatient Encounter [id number] 09/16 [place] Outpatient Encounter [id number] 10/21 [place] [facility] OFFICE O/P EST MOD 30 MIN [id number] Diagnos is: ICD-10- CM I10 Essenti al (primar y) hyperte nsion MARTIN SINHA C 10/21 [place] [facility] Outpatient Encounter [id number] 10/21 [place] Outpatient Encounter [id number] 10/22 [place] [facility] Social History Combined list of available smoking, tobacco, and other social history from [facility] and [facility] facilities. Social History Type Response Date Comment [facility] e Tobacco smoking status NHIS [place]-TOBACCO QUIT 15 YRS OR MORE 10/22/2023 [facility] History of tobacco use [place]-TO[place]ACCO FORMER USER 10/22/2023 [facility] History of tobacco use [place]ACCO FORMER USER 10/19/2022 [facility] History of tobacco use [place]-TO[place]ACCO FORMER USER 11/30/2020 [facility] History of tobacco use [place]-TOBACCO QUIT 15 YRS OR MORE 10/12/2019 [facility] History of tobacco use [place]-TOBACCO QUIT 15 YRS OR MORE 09/18/2018 [facility] History of tobacco use V9 QUIT TOBACCO >7 YEARS AGO 10/29/2016 [facility] History of tobacco use V9 QUIT TOBACCO >7 YEARS AGO 06/03/2015 [facility] History of tobacco use V9 QUIT TOBACCO >7 YEARS AGO 04/24/2013 [facility] History of tobacco use V9 QUIT TOBACCO >7 YEARS AGO 12/13/2011 [facility] History of tobacco use V9 QUIT TOBACCO >7 YEARS AGO 11/30/2010 [facility] Advance Directives List of completed, amended, or rescinded Advance Directives on record at Department of [facility] facilities. An actual copy of the Directive is not included. Date Advance Directive Provider Source 02/01/2012 ADVANCE DIRECTIVE PAULINE DAWN [facility] 01/25/2012 ADVANCE DIRECTIVE DISCUSSION MURIEL ZHANG [facility]
--- NOTE | 2024-11-25 11:21 | XR_ITS ---
FINAL REPORT CLINICAL HISTORY: sob FINDINGS: PA and lateral views of the chest are obtained. There is no prior exam for comparison. The cardiac and mediastinal silhouettes are within normal limits. The lungs are clear. There is no pleural effusion, pneumothorax, or acute osseous abnormality. IMPRESSION: No radiographic evidence of acute cardiac or pulmonary disease. Reviewed, Interpreted and Dictated by Ade Perez MD Transcribed by Cassie Meza Authenticated and [facility]
--- OUTSIDE RECORDS SUMMARY | 2024-11-25 11:22 | XMS_ITS | Data Portability ---
Author Organization [facility] ANSELMO Spears OCHELATA CLOSED Address [address] [facility] [address] [place] [address] Care Team Providers Care Superintendent Nonselling Name Role Phone ALEXANDRA WITT Primary Care Provider [phone] Assessment No assessment recorded. Plan of Treatment Reminders Order Date Submit Date Provider Last Modified By Organization Details Last Modified Time Details Appointments FOLLOW UP DAK 2024 11:00A Gretchen MALIN MD Not available Not available Not available FOLLOW UP DAK 2024 11:40A Gretchen MALIN MD Not available Not available Not available Lab surgical pathology study 2023 [facility], [address] [place], [address], 04/20/2024 13:53:47 Referral None recorded. Procedures None recorded. Surgeries None recorded. Imaging None recorded. Medication Orders Cipro 250 mg tablet 2023 024 [id number], [address] [place], [place], [id number], 05/13/2024 10:07:23 Patient TargetsNo targets recorded. Patient Instructions Encounter Date Encounter Id Patient Instructions Last Modified By Organization Details Last Modified Time 05/13/2024 [id number] Pt is to continue wound care and begin ciprofloxacin orally. Follow up in 2 weeks. miles Not available 05/13/2024 08:30:57 05/27/2024 [id number] Using punch fenestration allows blood to recirculate to cartilage to improve wound healing. Continue wound care QD gently cleaning with antibacterial soap and applying gentamicin ointment on wound and Vaseline on gauze and keep wound covered with light bandage. Follow up after gabino and call if you have any questions. [email or web address] Not available 05/27/2024 10:18:38 07/01/2024 [id number] Patient will be in [place] for the next several months. Email address provided to patient so he may send pictures of wound progress, also invited to use patient portal. Patient to follow up after return from [place]. [email or web address] Not available 07/01/2024 10:10:29 Reason for Referral None Reported. Results Created Date Observation Date Name Description Value Unit Range Abnormal Flag Note LastModifiedBy Organization Detail LastModifiedTime 04/17/2004/17/2024 SURGI LILLY surgical SEE BELOW abnormal Dora topat holog y Repor t NAME: RAFFY [...] Out Date: 04/20 13:53 1 Not Available [facility] [address] [place] [address], [place], [address], 04/20/2024 13:53:47 Result Notes None recorded. 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 Procedures Surgical History Date Name Laterality Status Provider Name and Address Organization Details Recorded Time 04/17/20 24 Blade Biopsy w/ ED&C completed [facility] 04/17/2024 12:48:09 04/17/20 24 Destruction Premalignant Lesion(s) completed [facility] 04/17/2024 12:48:12 11/04/19 24 DAK - Biopsy, Tangential completed Virginia Nicole [facility] 11/04/2023 13:54:39 Imaging Results None recorded. Procedure [...] Tobacco Smoking Status Never Smoker Zuleima Martinez [facility] 11/04/2023 13:20:47 Sunscreen Use? No Informatio n [...] SNOMED-CT Code Diagnosis ICD10 Code Diagnosis Note [id number] JOHNNIE ROGERS PA-C [place] [address] 11/04/2023 13:07:36 11/04/2023 14:35:23 Neoplasm of uncertain behavior of skin 31910398 D48.5 R posterior ear - 1.5cm scaly erythemato us plaque r/o [place] vs SCC [id number] ORALIA ALMONTE DO [place] [address] 01/14/2024 12:36:04 01/16/2024 11:49:32 [id number] ORALIA ALMONTE DO [place] [address] 02/17/2024 09:37:51 02/18/2024 04:34:11 History of malignant neoplasm of skin 705847032 Z85.828 No evidence of recurrence . Discussed risk of recurrence and new skin cancers, so regular self exam and profession al skin checks are recommende d. Sun protection with broad spectrum SPF 30 sunscreen and broad-brim med hat is recommende d. Sun protection with SPF 30 broad spectrum sunscreen and protective gear discussed. Postoperative visit 1096 93531 Z09 Pt to follow up in 3-4 weeks to check progress of healing Scar 817369436 L90.5 [id number] ORALIA ALMONTE, [address] [address] 03/18/2024 09:09:56 03/19/2024 04:37:39 History of malignant neoplasm of skin 039052453 Z85.828 No evidence of recurrence . Discussed risk of recurrence and new skin cancers, so regular self exam and profession al skin checks are recommende d. Sun protection with broad spectrum SPF 30 sunscreen and broad-brim med hat is recommende d. Sun protection with SPF 30 broad spectrum sunscreen and protective gear discussed. Postoperative visit 1836 36609 Z09 Scar 324221721 L90.5 Follow up with regular dermatolog ist. [id number] ORALIA ALMONTE, [place] [address] 04/15/2024 08:50:17 04/17/2024 04:16:09 History of malignant neoplasm of skin 035934599 Z85.828 No evidence of recurrence . Discussed risk of recurrence and new skin cancers, so regular self exam and profession al skin checks are recommende d. Sun protection with broad spectrum SPF 30 sunscreen and broad-brim med hat is recommende d. Sun protection with SPF 30 broad spectrum sunscreen and protective gear discussed. Postoperative visit 1836 65803 Z09 Scar 897170691 L90.5 [id number] ARMANDO MALIN MD [place] [address] 04/17/2024 12:06:21 04/17/2024 13:00:36 Melanocytic nevus of skin 729355185 D22.5 Benign lesion(s) assessed Solar lentiginosis 44973 2006 L81.4 Benign lesion(s) assessed Zinc and titanium SPF30+ sunscreen recommende d Seborrheic keratosis 394 655480 L82.1 Benign lesion(s) assessed Hemangioma of skin 55825 006 D18.01 Benign lesion(s) assessed Scar 518685800 L90.5 Z85.828 Well healed scar(s) with no evidence of recurrence . Actinic keratosis 204499 007 L57.0 Precancero us lesionsWil l treat with LN2 Neoplasm o f uncertain behavior of skin 55746392 D48.5 Right presternal : R/O ISK vs. SCCiS Tx w/C&D [id number] ORALIA ALMONTE, [address] [address] 05/13/2024 07:54:55 05/14/2024 04:30:55 History of malignant neoplasm of skin 514025641 Z85.828 No evidence of recurrence . Discussed risk of recurrence and new skin cancers, so regular self exam and profession al skin checks are recommende d. Sun protection with broad spectrum SPF 30 sunscreen and broad-brim med hat is recommende d. Sun protection with SPF 30 broad spectrum sunscreen and protective gear discussed. Postoperative visit 1836 25247 Z09 Scar 054973846 L90.5 Curette used to freshen up wound bed. Slow healing wound. Will give ciprofloxa jazzy due to tenderness to touch likely due to chondritis of cartilage. Will continue to follow. [id number] ORALIA AGUIRREJose MYA ALMONTE, [address] [address] 05/27/2024 08:29:54 05/28/2024 04:09:56 History of malignant neoplasm of skin 772004025 Z85.828 No evidence of recurrence . Discussed risk of recurrence and new skin cancers, so regular self exam and profession al skin checks are recommende d. Sun protection with broad spectrum SPF 30 sunscreen and broad-brim med hat is recommende d. Sun protection with SPF 30 broad spectrum sunscreen and protective gear discussed. Postoperative visit 1836 50184 Z09 No signs of infection present Scar 342150855 L90.5 2 ML of Lidocaine was used to numb area. 2mm punch was used for punch fenestrati ons of exposed cartilage to promote healing. Pt tolerated procedure well. [id number] ORALIA AGUIRREJose MYA ALMONTE, [address] [address] 07/01/2024 08:34:39 07/03/2024 04:52:25 History of malignant neoplasm of skin 324737184 Z85.828 No evidence of recurrence . Discussed risk of recurrence and new skin cancers, so regular self exam and profession al skin checks are recommende d. Sun protection with broad spectrum SPF 30 sunscreen and broad-brim med hat is recommende d. Sun protection with SPF 30 broad spectrum sunscreen and protective gear discussed. Postoperative visit 1836 95953 Z09 No signs of infection present Scar 068578825 L90.5 4% topical lidocaine was used for numbing area. Curette used on edges and base of wound to promote more optimal healing. Will consider full thickness skin graft if not well healed by next visit. [id number] ORALIA BURRELL-WILBUR ALMONTE, [place] [address] [place] [address] 10/14/2024 12:49:21 10/15/2024 04:10:43 History of malignant neoplasm of skin 179151965 Z85.828 No evidence of recurrence . Discussed risk of recurrence and new skin cancers, so regular self exam and profession al skin checks are recommende d. Sun protection with broad spectrum SPF 30 sunscreen and broad-brim med hat is recommende d. Sun protection with SPF 30 broad spectrum sunscreen and protective gear discussed. Postoperative visit 1836 05733 Z09 No signs of infection present Scar 706882986 L90.5 Patient is happy with the results- well healed. Continue regular skin checks. Health Concerns Section Related Observation LastModified by Organization Detai ls LastModified Time None Recorded Concern Status LastModified by Organization Details LastModified Time None Recorded Advance Directives Directive None Recorded Payers Insurance Date Sequence Insurance Name Policy Number Policy Magallanes Covered Member ID Magallanes Member ID Guarantor Name 11/24/2024 1 [employer] (MEDICARE REPLACEMENT/ ADVANTAGE - PPO) Raffy Grimes [id number] Raffy Grimes Notes Date Note Type Note Provider Name and Address Organization Details Recorded Time 04/17/2024 text/html I am here for a skin check Hx of SCCISR. Posterior Ear pt reports a few spots of concern on face, ear and chest ARMANDO MALIN MD [address] [place], [address], [place] [facility] 04/20/2024 11:14:24 05/13/2024 text/html Here for follow upMOHS [id number] posterior ear/ sccisGranulationDr. Yesenia VACA DO [address] [place], [address], [facility] 05/13/2024 15:37:34 05/27/2024 text/html Patient Presents for [...] of cartilage. ORALIA VACA DO [address] [place], [address], [facility] 05/27/2024 15:54:18 07/01/2024 text/html Patient presents for [...] not fully healed. ORALIA VACA DO [address] [place], [address], [facility] 07/02/2024 12:09:44 10/14/2024 text/html Patient presents for a delayed [...] has healed well with no issues. ORALIA VACA DO [address] [place], [address], [facility] 10/14/2024 16:03:13
== END 2024-11-25 23:59 | disposition home or self-care (01) ==
LOC: RAD 11:19
PROVIDERS: PCP Family Medicine; Visit Provider Internal Medicine Pulmonary Disease
DX: R06.02 Shortness of breath (principal)
CPT/HCPCS: 71046

== ENCOUNTER 2025-04-15 12:40 | Outpatient (CLI) | payer MEDICARE, SELFPAY ==
--- OUTSIDE RECORDS SUMMARY | 2025-04-15 12:44 | XMS_ITS | Encounter Summary ---
Author Organization [facility] ([place], [place], [place], [place]) Address [address] [place] [address] Care Team Providers Care Card Setter Name Role Phone Franck Zamarripa MD Primary Care Provider [phone] [phone] Encounter Details Date Type Department Care Team (Late st Contact Info) Description 12/09/2024 Outside Orders [facility] Neurology - [facility] [address] [facility] [address] [place] [address] David Cosme MD [facility] 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
--- OUTSIDE RECORDS SUMMARY | 2025-04-15 12:44 | XMS_ITS | Encounter Summary ---
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 [address] [place] [address] Phone: tel: fax: Referral ID Status Reason Start Date Expiration Date V isits Requested Visits Authorized [id number] New Request 12/09/2024 12/09/2025 1 1 Encounter Details Date Type Department Care Team (Late st Contact Info) Description 12/09/2024 Outside Orders [facility] Neurology - [address] [place] [address] David Cosme MD [facility] [address] [place] [address] Neoplasm of unspecified behavior of brain (HCC) [...] on file documented as of this encounter Results * CT chest abdomen pelvis with contrast (12/10/2024 9:19 AM EDT) Anatomical Region Laterality Modality Abdomen, Chest, Pelvis, Hip Comp uted Tomography (CT) 12/10/2024 11:2 7 AM EDT Impressions 12/10/2024 2:59 PM EDT 1. Bilateral subcentimeter, subpleural pulmonary nodules. These are indeterminate and could be postinfectious/inflammatory. Metastatic disease not entirely excluded. These are too small for sensitivity with PET and too small for biopsy. 2. Probable chronic interstitial lung changes. 3. No convincing primary malignancy in the abdomen or pelvis.. Images reviewed, interpreted, and dictated by Ade Perez MD Narrative 12/10/2024 2:[address] OF THE CHEST, ABDOMEN AND PELVIS WITH CONTRAST INDICATION: Brain neoplasm. TECHNIQUE: Thin section axial images were obtained from the lung apices to the pubic symphysis following IV and oral contrast administration. Multiplanar reconstruction images were obtained from the axial data. This study was performed with techniques to keep radiation doses as low as reasonably achievable (ALARA). Individualized dose reduction techniques using automated exposure control or adjustment of mA and/or KV according to the patient size were employed. COMPARISON: None. FINDINGS: CHEST: There is no axillary lymphadenopathy. Small mediastinal lymph nodes do not meet criteria for lymphadenopathy. No hilar lymphadenopathy. There is no pleural or pericardial effusion. There is interlobular septal thickening, worse at the lung bases. Favor this to be chronic. A 6 mm subpleural left lower lobe pulmonary nodule is seen on series 2, image 40. There is a 4 mm right middle lobe subpleural nodule, also on image 40. There is evidence of prior granulomatous disease. ABDOMEN: There are multiple very small hypodense liver lesions which are favored to be tiny hepatic cysts. The gallbladder is present. The spleen, adrenal glands and pancreas are within normal limits. There is a large left renal cyst. There is no hydronephrosis or solid renal mass. There is a small hiatal hernia. No small bowel obstruction or focal small bowel wall thickening. There is no abdominal lymphadenopathy or free fluid. PELVIS: The prostate is normal in size for age. The appendix is not visualized. There are no secondary signs of appendicitis. There is diverticulosis without diverticulitis. No pelvic lymphadenopathy or pelvic free fluid. BONES: No acute osseous abnormality is identified in the chest, abdomen, or pelvis. Procedure Note Ade Perez MD - 12/10/2024 CT OF THE CHEST, ABDOMEN AND PELVIS WITH CONTRAST INDICATION: Brain neoplasm. TECHNIQUE: Thin section axial images were obtained from the lung apices to the pubic symphysis following IV and oral contrast administration. Multiplanar reconstruction images were obtained from the axial data. This study was performed with techniques to keep radiation doses as low as reasonably achievable (ALARA). Individualized dose reduction techniques using automated exposure control or adjustment of mA and/or KV according to the patient size were employed. COMPARISON: None. FINDINGS: CHEST: There is no axillary lymphadenopathy. Small mediastinal lymph nodes do not meet criteria for lymphadenopathy. No hilar lymphadenopathy. There is no pleural or pericardial effusion. There is interlobular septal thickening, worse at the lung bases. Favor this to be chronic. A 6 mm subpleural left lower lobe pulmonary nodule is seen on series 2, image 40. There is a 4 mm right middle lobe subpleural nodule, also on image 40. There is evidence of prior granulomatous disease. ABDOMEN: There are multiple very small hypodense liver lesions which are favored to be tiny hepatic cysts. The gallbladder is present. The spleen, adrenal glands and pancreas are within normal limits. There is a large left renal cyst. There is no hydronephrosis or solid renal mass. There is a small hiatal hernia. No small bowel obstruction or focal small bowel wall thickening. There is no abdominal lymphadenopathy or free fluid. PELVIS: The prostate is normal in size for age. The appendix is not visualized. There are no secondary signs of appendicitis. There is diverticulosis without diverticulitis. No pelvic lymphadenopathy or pelvic free fluid. BONES: No acute osseous abnormality is identified in the chest, abdomen, or pelvis. IMPRESSION: 1. Bilateral subcentimeter, subpleural pulmonary nodules. These are indeterminate and could be postinfectious/inflammatory. Metastatic disease not entirely excluded. These are too small for sensitivity with PET and too small for biopsy. 2. Probable chronic interstitial lung changes. 3. No convincing primary malignancy in the abdomen or pelvis.. 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
--- OUTSIDE RECORDS SUMMARY | 2025-04-15 12:44 | XMS_ITS | Clinical Summary ---
Author Organization [facility] Address [address] [place] [address] Care Team Providers Care Distribution Lead Name Role Phone Franck Zamarripa MD Primary Care Provider [phone] [phone] Allergies No known active allergies Medications atorvastatin (LIPITOR) 10 MG tablet Take 10 mg by mouth daily. Active aspirin 81 MG chewable tablet Chew 81 mg daily. Active coenzyme Q10 100 MG capsule Take 100 mg by mouth daily. Active omeprazole (PriLOSEC) 20 MG capsule Take 20 mg by mouth daily. Active Ped Multivitamins-F l-Iron (MULTIVITAMIN WITH FLUORIDE/IRON) 0.25-10 MG/ML solution solution Take by mouth daily. Active metoprolol succinate XL (TOPROL-XL) 25 MG 24 hr tablet Take 25 mg by mouth Daily. Active amLODIPine (NORVASC) 2.5 MG tablet Take 5 mg by mouth Daily. 0 01/05/2019 Active mupirocin (BACTROBAN) 2 % ointment APPLY TO INSIDDE OF NOSE 3 TO 4 TIMES A DAY DIRECTED 0 03/11/2019 Active hydroCHLOROthia zide (HYDRODIURIL) 12.5 MG tablet TK 1 T PO QD PRN 01/18/2020 Active Turmeric 500 MG capsule Take 1 capsule by mouth Daily. Active ciprofloxacin (CIPRO) 250 MG tablet Take 1 tablet by mouth Every 12 (Twelve) Hours. 05/13/2024 Active Active Problems Problem Noted Date Diagnosed Date Crohn disease 01/17/2016 Encounters Date Type Department Care Team Description 01/28/2025 9:41 AM EDT - 01/28/2025 11:59 PM EDT Hospital Encounter [facility] [address] [place] [address] Brian Dyer MD Crohn's disease without complication, unspecified gastrointestinal tract location (Primary Dx) Discharge Disposition: Home or Self Care 01/28/2025 Travel from Last 3 Months Social History Tobacco Use Types Packs/Day Years Used Date Smoking Tobacco: Former Alcohol Use Standard Drinks/Week Comments Yes 0 (1 standard drink = 0.6 oz pur e alcohol) Sex and Gender Information Value Date Recorded Sex Assigned at Not on file Legal Sex Male 12:26 PM EDT Gender Identity Not on file Sexual Orientation Not on file Last Filed Vital Signs Vital Sign Reading Time Taken Comments Blood Pressure 105/67 01/28/2025 12:25 PM EDT Pulse 54 01/28/2025 12:25 PM EDT Temperature 36.3 C (97.4 F) 01/28/2025 9:55 AM EDT Respiratory Rate 16 01/28/2025 9:55 AM EDT Oxygen Saturation - - Inhaled Oxygen Concentration - - Weight 76.7 kg (169 lb) 01/28/2025 9:55 AM EDT Height 167.6 cm (5' 6 ) 01/28/2025 9:55 AM EDT Body Mass Index 27.28 01/28/2025 9:55 AM EDT Plan of Treatment Upcoming Encounters Date Type Department Care Team (Late st Contact Info) Description 04/22/2025 10:00 AM EDT Appointment [facility] [address] [place] [address] Health Maintenance Due Date Last Done Comments TDAP/TD VACCINES (1 - Tdap) 1966 COLOGUARD 1992 COLON CANCER SCREENING 5 YEA R SIGMOIDOSCOPY 1992 COLONOSCOPY [address] SCREENING 1992 [address] COLONOGRAPHY 1992 FECAL OCCULT BLOOD TEST 1992 FIT Testing (1 year) 1992 ZOSTER VACCINE (2 of 3) 06/04/2016 04/09/2016 ANNUAL WELLNESS VISIT 10/12/2016 HEPATITIS C SCREENING 10/12/2016 Pneumococcal Vaccine 50+ (2 of 2 - PCV) 10/18/2020 10/19/2019 RSV Vaccine - Adults (1 - 1- dose 75+ series) 2022 INFLUENZA VACCINE 01/22/2025 04/04/2021, , 03/16/2019, Additional history exists COVID-19 Vaccine (5 - 2024-2 6 season) 2025 11/06/2021, 04/17/2021, 08/27/2020, Additional history exists Insurance [facility] [employer] PPO Care Teams Distribution Lead Relationship Specialty Start Date End Date Franck Zamarripa MD [address] [facility] [address] [place] [address] PCP - General Family Medicine 01/18/16
--- OUTSIDE RECORDS SUMMARY | 2025-04-15 12:44 | XMS_ITS | Referral Summary ---
Author Organization [employer] ([place], [place], [place], [place]) Address [address] [place] [address] Care Team Providers Care Stile Ripsaw Operator Name Role Phone Franck Zamarripa MD Primary Care Provider [phone] [phone] Allergies No known active allergies Social History Tobacco Use Types Packs/Day Years Used Date Smoking Tobacco: Never Assessed Sex and Gender Information Value Date Recorded Sex Assigned at Not on file Legal Sex Male 5:18 PM CDT Gender Identity Not on file Sexual Orientation Not on file Last Filed Vital Signs Vital Sign Reading Time Taken Comments Blood Pressure - - Pulse - - Temperature - - Respiratory Rate - - Oxygen Saturation - - Inhaled Oxygen Concentration - - Weight 75.8 kg (167 lb) 12/10/2024 9:54 AM EDT Height - - Body Mass Index - - Plan of Treatment Not on file Insurance [employer] MEDICARE PPO Care Teams Stile Ripsaw Operator Relationship Specialty Start Date End Date Franck Zamarripa MD [facility] [address] [place] [address] PCP - General Family Medicine 12/10/24
--- OUTSIDE RECORDS SUMMARY | 2025-04-15 12:44 | XMS_ITS | Clinical Summary ---
Author Organization [facility] ([place], [place], [place], [place]) Address [address] [place] [address] Care Team Providers Care Global Recruiter Name Role Phone Franck Zamarripa MD Primary Care Provider [phone] Allergies No known active allergies Social History [...] Mass Index - - Plan of Treatment Health Maintenance Due Date Last Done Comments Depression Screening (12+) 1959 Tobacco Cessation Counseling and Screening (12+) 1959 Hepatitis C Screening 1965 Medicare Initial AWV [id number] 06/25/2018 DTAP/TDAP/TD VACCINES (2 - Tdap) 12/13/2021 12/14/19 12 Respiratory Syncytial Virus (RSV) Adult or (1 - 1-dose 75+ series) 2022 Falls Risk Screening 06/24/2024 COVID-19 VACCINE (5 - 2024-2 6 season) 2025 11/06/2021, 04/17/2021, 08/27/2020, Additional history exists Influenza Vaccine (#1) 2025 , 03/07/2023, 04/02/2022, Additional history exists Shingles Vaccine (Zoster) Completed 2018, 02/16/2019, 04/09/2016 Pneumococcal 50+ years Completed 0, 06/21/2014, 03/24/2013 Insurance [employer] MEDICARE PPO Care Teams Global Recruiter Relationship Specialty Start Date End Date Franck Zamarripa MD [address] [facility] [address] [place] [address] PCP - General Family Medicine 12/10/24
[2025-04-15 13:40] VITALS: PULSE 57; PULSE 59
[2025-04-15] MEDS: ALBUTEROL 0.083% 2.5 MG/3 ML NEB IH (13:40)
== END 2025-04-15 23:59 | disposition home or self-care (01) ==
LOC: RT 12:42
PROVIDERS: PCP Family Medicine; Visit Provider Internal Medicine Pulmonary Disease
DX: J44.9 Chronic obstructive pulmonary disease, unspecified (principal); R94.2 Abnormal results of pulmonary function studies
CPT/HCPCS: 94060; 94618; 94640; 94726; 94729